=== PATIENT | male | born 1960 | race African-American/Black ===

== ENCOUNTER 2021-12-09 12:39 | Emergency (ER) | payer OTHER, SELFPAY ==
--- NOTE | 2021-12-09 12:46 | ED.SKABFB ---
HPI - Skin/Abscess/Foreign Bdy General Chief complaint: Skin/Abscess/Foreign Body Stated complaint: Abcess on arm Source: patient Mode of arrival: ambulatory Limitations: no limitations History of Present Illness HPI narrative: 61-year-old male presented for complaint of skin lesion to the left wrist for about 3 months. He states over the last 2 to 3 weeks he has noticed it is more itchy, he has scratched it and has noticed yellow and clear drainage. He has applied kyos-mmf-ltnnacl treatment such as tea tree oil and Neosporin without relief. He denies any other locations of lesions. He states this is the location where his watch is normally, but he has not been wearing a watch. Denies changes to lotion, soap, detergent etc. MD complaint: rash Related Data Home Medications Medication Instructions Recorded Confirmed albuterol sulfate 90 mcg/actuation 90 mcg inhalation DIRECTED 12/09/21 12/09/21 aerosol inhaler atorvastatin 20 mg tablet 20 mg DIRECTED 12/09/21 12/09/21 losartan 25 mg tablet 25 mg DIRECTED 12/09/21 12/09/21 sildenafil 50 mg tablet 50 mg DIRECTED 12/09/21 12/09/21 Allergies Allergy/AdvReac Type Severity Reaction Status Date / Time No Known Allergies Allergy Unverified 03/01/19 12:08 Review of Systems Review of Systems: CONSTITUTIONAL: Denies body aches, fever, chills, or sweats. CARDIOVASCULAR: Denies chest pain, palpitations, or edema. RESPIRATORY: Denies cough or dyspnea. GASTROINTESTINAL: Denies abdominal pain, nausea, vomiting, or diarrhea. SKIN: reports rash, itching MUSCULOSKELETAL: Denies back pain, joint pain, or myalgia. NEUROLOGIC: Denies headache, numbness, tingling, or weakness. PMFSH Comments At time of signature, I have reviewed and agree with nursing past medical, surgical, social and family history unless otherwise noted. Please see nursing chart for further information. There is no relevant family history pertinent to the presenting complaint Exam Narrative: GENERAL: Well-appearing, well-nourished, and in no acute distress. HEAD: Normocephalic, atraumatic. NECK: Supple. No lymphadenopathy CHEST: Clear to auscultation. No respiratory distress. HEART: Regular rate and rhythm. SKIN: Warm, dry. approx [id number] diameter flat scaly lesion to left wrist, mild surrounding erythema and yellow crusted drainage; no active drainage or fluctuance NEURO: Alert and oriented x3. PSYCH: Normal mood and affect Course Course Emergency Course: Patient is aware of diagnosis, understands and agrees to treatment plan. Anticipatory guidance given. Patient agrees to follow-up as directed and is aware of reasons to seek care at the emergency department. Portions of this record may have been created with voice recognition software Level of Care: Express Care Visit Vital Signs Vital signs: Reviewed MDM - Skin/Abscess/Foreign Bdy MDM Narrative Medical decision making narrative: Patient looks well, afebrile; appropriate for initial outpatient treatment; discussed the importance of follow-up, patient agrees. Rx mupirocin and steroid. Instructed patient follow up with pcp and dermatology since lesion has been present for 3 months, he is advised to go to nearest ER immediately for any worsening symptoms including but not limited to: fever, spreading rash, pain, sore throat, headache, dizziness, chest pain, trouble breathing, or any symptoms concerning to the patient. Differential Diagnosis Differential diagnosis: Likely abscess of skin or subcutaneous tissue, urticaria, herpes zoster, cellulitis, impetigo and contact dermatitis Discharge Plan Discharge Clinical Impression: Dermatitis Patient Disposition: Home, Self-Care Condition: Stable Instructions: Antibiotic Form, Impetigo (ED) Additional Instructions: Wash the area with gentle soap and water only. Use skin cream as prescribed Take the steroid as directed Avoid scratching when possible to prevent worsening of th
[2021-12-09 12:49] VITALS: BP 141/77; PULSE 66; RESP 16; TEMP 36.9; O2SAT 100
[2021-12-09 12:55] VITALS: BP 141/77; PULSE 66; RESP 16; TEMP 36.9; O2SAT 100
== END 2021-12-09 13:11 | disposition home or self-care (01) ==
PROVIDERS: Emergency Provider Nurse Practitioner Family; PCP Internal Medicine
DX: L30.9 Dermatitis, unspecified (principal); E78.00 Pure hypercholesterolemia, unspecified; I10 Essential (primary) hypertension; J45.909 Unspecified asthma, uncomplicated
CPT/HCPCS: 99213; G0463

== ENCOUNTER 2021-12-29 23:46 | Emergency (ER) | payer OTHER, SELFPAY ==
[2021-12-30 00:07] VITALS: BP 127/74; PULSE 64; RESP 16; TEMP 36.8; O2SAT 98
[2021-12-30 02:06] VITALS: BP 127/70; PULSE 65; RESP 18; O2SAT 100
--- NOTE | 2021-12-30 02:11 | ED.GENADULT ---
HPI - General Adult General Chief complaint: Unspecified <RAUL Schwartz Last Filed: 12/30/21 02:23> Stated complaint: painful and itching rectum/ possible hemorrhoid? <RAUL Schwartz Last Filed: 12/30/21 02:23> Time Seen by Provider: 12/30/21 01:48 <RAUL Schwartz Last Filed: 12/30/21 02:23> Source: patient <RAUL Schwartz Last Filed: 12/30/21 02:23> Mode of arrival: ambulatory <RAUL Schwartz Last Filed: 12/30/21 02:23> Limitations: no limitations <RAUL Schwartz Last Filed: 12/30/21 02:23> History of Present Illness HPI narrative: This is a 61-year-old male that presents to the emergency department for anal itching. Noted over the last week. He has used several [id number] treatments with little relief. Denies fever or rectal bleeding. <RAUL Schwartz Last Filed: 12/30/21 02:23> Related Data Home medications: Home Medications Medication Instructions Recorded Confirmed albuterol sulfate 90 mcg/actuation 90 mcg inhalation DIRECTED 12/09/21 12/09/21 aerosol inhaler atorvastatin 20 mg tablet 20 mg DIRECTED 12/09/21 12/09/21 losartan 25 mg tablet 25 mg DIRECTED 12/09/21 12/09/21 sildenafil 50 mg tablet 50 mg DIRECTED 12/09/21 12/09/21 <Rubi Díaz PA-C - Last Filed: 12/30/21 02:23> Allergies/adverse reactions: Allergies Allergy/AdvReac Type Severity Reaction Status Date / Time No Known Allergies Allergy Verified 12/30/21 00:07 <RAUL Schwartz Last Filed: 12/30/21 02:23> Review of Systems Review of Systems: CONSTITUTIONAL: Denies fever GASTROINTESTINAL: Denies abdominal pain, nausea, vomiting <RAUL Schwartz Last Filed: 12/30/21 02:23> All systems reviewed & are unremarkable except as noted in HPI and below <Rubi Díaz PA-C - Last Filed: 12/30/21 02:23> PMFSH Past Medical History Medical History: Medical History (Updated 12/30/21 @ 02:20 by Rubi Díaz PA-C) History of hyperlipidemia History of hypertension <Rubi Díaz PA-C - Last Filed: 12/30/21 02:23> Social History Social History: Social History (Updated 12/30/21 @ 02:13 by Rubi Díaz PA-C) Substance use: never <Rubi Díaz PA-C - Last Filed: 12/30/21 02:23> Exam Narrative: GENERAL: Well-appearing, well-nourished, and in no acute distress. HEAD: Normocephalic, atraumatic. EYES: EOMI. EXTREMITIES: Normal range of motion. No edema. SKIN: Warm, dry, no rash. NEURO: No focal deficits. Alert and oriented x3. PSYCH: Normal mood and affect RECTAL: No hemorrhoids or fissures are noted. The anal area appears red and irritated. No evidence for abscess <Rubi Díaz PA-C - Last Filed: 12/30/21 02:23> Course WO[employer] LAST [employer]KER/PA Physician Supervision For this patient encounter, I reviewed the WOOD LAST MAKER or PA documentation, treatment plan, and medical decision making <Robin Gamble MD - Last Filed: 12/30/21 19:12> Vital Signs Vital signs: Vital Signs Temperature 98.2 F 12/30/21 00:07 Pulse Rate 64 12/30/21 00:07 Respiratory Rate 16 12/30/21 00:07 Blood Pressure 127/74 12/30/21 00:07 Pulse Oximetry 98 12/30/21 00:07 Temperature 98.2 F 12/30/21 00:07 Pulse Rate 65 12/30/21 02:06 Respiratory Rate 18 12/30/21 02:06 Blood Pressure 127/70 12/30/21 02:06 Pulse Oximetry 100 12/30/21 02:06 <Rubi Díaz PA-C - Last Filed: 12/30/21 02:23> Vital Signs Temperature 98.2 F 12/30/21 00:07 Pulse Rate 64 12/30/21 00:07 Respiratory Rate 16 12/30/21 00:07 Blood Pressure 127/74 12/30/21 00:07 Pulse Oximetry 98 12/30/21 00:07 Temperature 98.2 F 12/30/21 00:07 Pulse Rate 65 12/30/21 02:06 Respiratory Rate 18 12/30/21 02:06 Blood Pressure 127/70 12/30/21 02:06 Pulse Oximetry 100 12/30/21 02:06 <Robin Gamble MD - Last Filed: 12/30/21 19:12> Medical Decision M
== END 2021-12-30 03:05 | disposition home or self-care (01) ==
PROVIDERS: Emergency Provider Emergency Medicine; PCP Internal Medicine
DX: L29.0 Pruritus ani (principal); E78.5 Hyperlipidemia, unspecified; I10 Essential (primary) hypertension
CPT/HCPCS: 99283

== ENCOUNTER 2022-01-25 13:27 | Emergency (ER) | payer OTHER, SELFPAY ==
--- NOTE | ~2022-01-25 | XR_ITS ---
EXAMINATION: XR chest 2V Exam Date/Time: 01/25/2022 15:15 CDT HISTORY: rt chest pain/short of breath non smoker Comparison: 11/26/2018 and 08/06/2008. RESULT: Lines, tubes, and devices: None. Lungs and pleura: New irregular, somewhat nodular opacities in the left midlung. Lungs otherwise oneyda ar. Cardiomediastinal silhouette: Stable. Other: No acute osseous or upper abdominal finding. IMPRESSION: Irregular opacities in the left midlung may reflect focal infectious/inflammatory change. Recommend n onemergent outpatient CT of the chest to exclude pulmonary nodules. Reviewed, dictated and finalized at location K. IMPRESSION: Irregular opacities in the left midlung may reflect focal infectious/inflammato ry change. Recommend nonemergent outpatient CT of the chest to exclude pulmonar y nodules.
[2022-01-25 14:28] VITALS: BP 139/69; PULSE 61; RESP 16; TEMP 36.5; O2SAT 100
--- NOTE | 2022-01-25 15:11 | ED.URI ---
HPI - URI/Sore Throat General Chief Complaint: Upper Respiratory Infection Stated Complaint: uri Time Seen by Provider: 01/25/22 15:11 Source: patient, RN notes reviewed and old records reviewed Mode of arrival: ambulatory Limitations: no limitations History of Present Illness HPI Narrative: 61 year old male who presents to [facility] with complaints of going to another urgent care on the with fever, chills, and dry cough and he was tested negative for COVID. He present today stating that this the 2nd week he hasn't felt well and now he has productive cough and right sided chest pain and also some body aches. He states that he has had pneumonia in the past and he is concerned that he may have pneumonia again. He states that he took Vicodin last night for his chest discomfort. MD elicited complaint: cough and other (right side chest pain) Pertinent past history: pneumonia Treatments prior to arrival: other (medrol dose pack and inhaler) Related Data Home Medications Medication Instructions Recorded Confirmed albuterol sulfate 90 mcg/actuation 90 mcg inhalation DIRECTED 12/09/21 01/25/22 aerosol inhaler atorvastatin 20 mg tablet 20 mg DIRECTED 12/09/21 01/25/22 losartan 25 mg tablet 25 mg DIRECTED 12/09/21 01/25/22 sildenafil 50 mg tablet 50 mg DIRECTED 12/09/21 01/25/22 Allergies Allergy/AdvReac Type Severity Reaction Status Date / Time No Known Allergies Allergy Verified 01/26/22 13:19 Review of Systems Review of Systems: CONSTITUTIONAL: Denies fever,positive for chills, no sweats. EYES: Denies visual changes, redness, or discharge. ENT: Denies , congestion, sore throat, or otalgia. CARDIOVASCULAR: reports right sided chest pain, palpitations, or edema. RESPIRATORY: Reports productive cough no dyspnea. GASTROINTESTINAL: Denies abdominal pain, nausea, vomiting, or diarrhea. GENITOURINARY: Denies dysuria or hematuria. SKIN: Denies rash or itching. MUSCULOSKELETAL: Denies back pain, joint pain,body aches NEUROLOGIC: Denies headache, numbness, or weakness. PSYCHIATRIC: Denies anxiety or depression. All systems reviewed & are unremarkable except as noted in HPI and below PMFSH Past Medical History Medical History (Updated 01/27/22 @ 20:19 by Rachel Green NP) History of hyperlipidemia History of hypertension Surgical History Surgical History (Updated 01/27/22 @ 20:14 by Rachel Green NP) H/O left knee surgery H/O repair of rotator cuff bilateral Social History Social History (Updated 01/27/22 @ 20:18 by Rachel Green NP) Smoking status: Never smoker Alcohol intake: unknown Substance use: never Gender identity (if verbalized by the patient): Male Comments At time of signature, agree with nursing past medical, surgical, social and family history. There is no relevant family history pertinent to the presenting complaint Exam Narrative: GENERAL: Well-appearing, well-nourished, and in no acute distress. HEAD: Normocephalic, atraumatic. EYES: PERRLA and EOMI. ENT: Nares clear, no rhinorrhea or epistaxis. Mucous membranes moist.TM's normal with good light reflex, throat pink with no lesions or tonsil swelling NECK: Supple. No lymphadenopathy CHEST: Clear to auscultation. No respiratory distress.[id number] on room air, no tachypnea, cough noted, able to speak in full sentences with no dyspnea noted HEART: Regular rate and rhythm. No murmur heard. Normal peripheral pulses. ABDOMEN: Soft, nontender, nondistended, normal active bowel sounds. EXTREMITIES: Normal range of motion. No edema. SKIN: Warm, dry, no rash. NEURO: No focal deficits. Alert and oriented x3. Course Course Level of Care: Express Care Visit Vital Signs Vital signs: Vital Signs Temperature 36.5 C 01/25/22 14:28 Pulse Rate 61 01/25/22 14:28 Respiratory Rate 16 01/25/22 14:28 Blood Pressure 139/69 01/25/22 14:28 Pulse Oximetry 100 01/25/22 14:28 Oxygen Delivery Room Air
== END 2022-01-25 16:17 | disposition home or self-care (01) ==
PROVIDERS: Emergency Provider Registered Nurse
DX: J06.9 Acute upper respiratory infection, unspecified (principal); E78.5 Hyperlipidemia, unspecified; I10 Essential (primary) hypertension
CPT/HCPCS: 71046; 99213; G0463

== ENCOUNTER 2022-01-26 12:44 | Emergency (ER) | payer OTHER, SELFPAY ==
[2022-01-26] VITALS (15 sets, daily range): BP systolic 130–145; BP diastolic 75–92; PULSE 58–88; RESP 14–16; TEMP 36.8; O2SAT 97–100
--- NOTE | ~2022-01-26 | CT_ITS ---
EXAMINATION: CTA chest PE protocol DATE: 01/26/2022 14:44 INDICATION: Chest pain and shortness of breath. TECHNIQUE: Computed tomography (CT) pulmonary angiogram of the chest was performed with 100 mL Omnipa que-350 intravenous contrast. Additional 3D reconstructions utilizing coronal maximum intensity proje ction (MIP) were performed. Automated exposure control and iterative reconstruction technique were em ployed. The dose-length product was 543.20 mGy-cm. COMPARISON: None FINDINGS: Excellent contrast opacification of the pulmonary arteries. There is mild streak artifact from dense contrast in the superior vena cava and right atrium. Mild scattered respiratory motion artifact. Pelv is to suggest 3 Limited evaluation with no pulmonary embolism. Small lung volumes, particularly on th e right where there is mild elevation the right hemidiaphragm. Dependent groundglass and linear and b andlike opacities in the bilateral lower lobes with corresponding bronchovascular crowding and volume loss most consistent with atelectasis. There is a cluster of several pulmonary nodules, the largest measuring 13 x 9 mm in the posterior lingula concerning for pneumonia. No pulmonary edema or pleural effusion. Heart size is normal. No pericardial effusion. Thoracic aorta is normal in caliber. No path ologically enlarged thoracic lymphadenopathy. Visualized upper abdomen is unremarkable. There are fabien dging osteophytes at multiple levels in the spine, consistent with diffuse idiopathic skeletal hypero stosis (DISH). IMPRESSION: 1. Cluster of nodular opacities in the posterior lingula corresponding to the opacity seen on the remy or radiographs which given the localized distribution are most likely infectious/inflammatory in etio logy but would recommend 3-6 month follow-up. 2. Mild atelectasis in the bilateral lower lobes. Reviewed, dictated and finalized at location A. IMPRESSION: 1. Cluster of nodular opacities in the posterior lingula corresponding to the o pacity seen on the prior radiographs which given the localized distribution are most likely infectious/inflammatory in etiology but would recommend 3-6 month follow-up. 2. Mild atelectasis in the bilateral lower lobes.
--- NOTE | ~2022-01-26 | XR_ITS ---
EXAMINATION: XR chest 2V DATE: 01/26/2022 13:23 INDICATION: Right-sided chest pain, fever, cough and shortness of breath TECHNIQUE: PA and lateral views of the chest were obtained. COMPARISON: Chest radiograph dated 01/25/2022 FINDINGS: Again seen are couple small nodular opacities in the left midlung zone. Remainder of the lungs are cl ear with no new airspace opacities, pulmonary edema, pleural effusion or pneumothorax. Calcified left hilar lymph nodes consistent with old granulomatous disease. The cardiomediastinal silhouette is nor mal. There are bridging osteophytes at multiple levels in the lower thoracic spine, consistent with d iffuse idiopathic skeletal hyperostosis (DISH). IMPRESSION: 1. No change in a couple small nodular opacity left midlung zone. Would agree with prior recommendati on for further evaluation with nonemergent chest CT. Reviewed, dictated and finalized at location A. IMPRESSION: 1. No change in a couple small nodular opacity left midlung zone. Would agree w ith prior recommendation for further evaluation with nonemergent chest CT.
--- NOTE | 2022-01-26 12:48 | ECG_ITS ---
Measurements Intervals [place] Rate: 58 P: 22 LA: 170 QRS: -28 QRSD: 116 T: -2 QT: 390 QTc: 383 Interpretive Statements SINUS BRADYCARDIA WITH SINUS ARRHYTHMIA INTRAVENTRICULAR CONDUCTION DELAY BORDERLINE T WAVE ABNORMALITY- INFERIOR LEADS BASELINE WANDER- V1-V6 BORDERLINE ECG Electronically Signed On 01-26-2022 14:41:09 CDT by Ross Bates D.O.
[2022-01-26 13:03] LABS: Basophils Percent Auto 0.5 % (0.2-1.2); Eosinophils Absolute Auto 0.3 K/mm3 (0-0.3); Eosinophils Percent Auto 4.1 % (0-4.4); Hematocrit 44.2 % (42.0-52.0); Hemoglobin 14.2 g/dL (14.0-18.0); Immature Granulocyte Absolute 0.02 K/mm3 (0.00-0.031); Immature Granulocyte Percent A 0.3 % (0-0.5); Lymphocytes Absolute Auto 1.72 K/mm3 (0.9-3.2); Lymphocytes Percent Auto 27.3 % (18.3-44.2); Mean Corpuscular HGB Conc 32.1 g/dl (32-36); Mean Corpuscular Hemoglobin 29.4 pg (26-34); Mean Corpuscular Volume 91.5 fl (80-100); Mean Platelet Volume 9.6 fl (7.4-10.4); Monocytes Absolute Auto 0.5 K/mm3 (0.1-0.6); Monocytes Percent Auto 8.2 % (2.6-8.5); Neutrophils Absolute Auto 3.8 K/mm3 (1.3-6.7); Neutrophils Percent Auto 59.6 % (45.5-73.1); Platelet Count Result 207 k/mm3 (150-375); Red Blood Count 4.83 M/mm3 (4.6-6.20); Red Cell Distribution Width 13.2 % (11.5-14.5); White Blood Count 6.3 K/mm3 (4.5-10.0)
[2022-01-26 13:12] LABS: INR 1.1; Prothrombin Time 13.4 Seconds (11.1-14.7)
[2022-01-26 13:13] LABS: Alanine Aminotransferase 46 U/L (6-50); Albumin Level 4.2 g/dL (3.5-5.1); Alkaline Phosphatase 94 U/L (38-126); Anion Gap 11 mmol/L (8-16); Aspartate Amino Transferase 40 U/L (17-59); Bilirubin,Total 0.5 mg/dL (0.2-1.3); Blood Urea Nitrogen 13 mg/dL (9-20); Calcium 9.2 mg/dL (8.4-10.2); Carbon Dioxide 27 mmol/L (22-30); Chloride 106 mmol/L (98-107); Estimated CRCL calculation 73 ml/min; Estimated Glomerular Filt Rate > 60; Glucose 129 mg/dL (65-110); Lipase 66 U/L (23-300); Potassium 3.9 mmol/L (3.4-5.0); Sodium 144 mmol/L (137-145)
[2022-01-26 13:14] LABS: Partial Thromboplastin Time 25.1 SECONDS (22.3-36.8)
[2022-01-26] MEDS: ASPIRIN 81 MG CHEWABLE TABLET 324 MG PO (13:19)
[2022-01-26 13:25] LABS: Troponin I < 0.012 ng/mL (0.000-0.034)
--- NOTE | 2022-01-26 14:09 | ED.GENADULT ---
HPI - General Adult General Chief complaint: Chest Pain Stated complaint: chest pain Time Seen by Provider: 01/26/22 13:11 History of Present Illness HPI narrative: Patient is a 61-year-old male who presents ER with left-sided chest pain. Associated with cough and pain with deep breath. Ongoing for last couple weeks. Originally treated for viral syndrome and negative for COVID. Patient is not having fevers or chills or sweats. He was seen at an urgent care today and had an abnormal chest x-ray that nonemergent follow-up CT scan was recommended. Urgent care opted to send him for further evaluation. Patient has no hypoxia. No lower extremity swelling or pain in his calves. No long distance travel. No history of previous clots. Related Data Home Medications Medication Instructions Recorded Confirmed albuterol sulfate 90 mcg/actuation 90 mcg inhalation DIRECTED 12/09/21 01/25/22 aerosol inhaler atorvastatin 20 mg tablet 20 mg DIRECTED 12/09/21 01/25/22 losartan 25 mg tablet 25 mg DIRECTED 12/09/21 01/25/22 sildenafil 50 mg tablet 50 mg DIRECTED 12/09/21 01/25/22 Allergies Allergy/AdvReac Type Severity Reaction Status Date / Time No Known Allergies Allergy Verified 01/26/22 13:19 Review of Systems Constitutional: Constitutional: Denies chills and Denies fever(s) Cardiovascular: Cardiovascular: Reports chest pain, Denies rapid heart rate and Denies radiating jaw, neck or arm pain Respiratory: Respiratory: Reports chest congestion, Reports cough and Denies wheezing Gastrointestinal: Gastrointestinal: Denies abdominal pain, Denies nausea and Denies vomiting Musculoskeletal: Musculoskeletal: Denies arthralgias and Denies joint swelling PMFSH Past Medical History Medical History (Updated 01/26/22 @ 15:52 by Roel Diamond MD) History of hyperlipidemia History of hypertension Surgical History Surgical History (Updated 01/25/22 @ 15:29 by Rachel Green NP) H/O left knee surgery Social History Social History (Updated 01/25/22 @ 15:30 by Rachel Green NP) Smoking status: Never smoker Substance use: never Gender identity (if verbalized by the patient): Male Exam Narrative: GENERAL: Well-appearing, well-nourished, and in no acute distress. HEAD: Normocephalic, atraumatic. EYES: PERRL and EOMI. CHEST: Clear to auscultation. No respiratory distress. HEART: Regular rate and rhythm. Normal peripheral pulses. ABDOMEN: Soft, nontender, nondistended. EXTREMITIES: Normal range of motion. No edema. SKIN: Warm, dry, no rash. NEURO: Alert and oriented x3. PSYCH: Normal mood and affect. Course Course Emergency Course: Patient resting comfortably. Informed of results. Recommend anti-inflammatories for pleuritic chest pain. Patient was given low-dose prednisone as well as Z-Jorge A which should be adequate in treating his pneumonia. Discussed he needs to follow-up with his PCP because he will require repeat imaging of his chest next 3 to 6 months to exclude malignancy. Vital Signs Vital signs: Vital Signs Temperature 98.2 F 01/26/22 12:54 Pulse Rate 66 01/26/22 12:54 Respiratory Rate 14 01/26/22 12:54 Blood Pressure 130/75 01/26/22 12:54 Pulse Oximetry 100 01/26/22 12:54 Oxygen Delivery Room Air 01/26/22 12:54 Temperature 98.2 F 01/26/22 12:54 Pulse Rate 61 01/26/22 15:02 Respiratory Rate 16 01/26/22 15:02 Blood Pressure 141/92 H 01/26/22 15:02 Pulse Oximetry 97 01/26/22 15:02 Oxygen Delivery Room Air 01/26/22 12:54 Medical Decision Making Vital Signs Vital Signs: Vital Signs Temperature 98.2 F 01/26/22 12:54 Pulse Rate 66 01/26/22 12:54 Respiratory Rate 14 01/26/22 12:54 Blood Pressure 130/75 01/26/22 12:54 Pulse Oximetry 100 01/26/22 12:54 Oxygen Delivery Room Air 01/26/22 12:54 Temperature 98.2 F 01/26/22 12:54 Pulse Rate 61 01/26/22 15:02 Respiratory Rate 16 01/26/22 15:02 Blo
[2022-01-26 16:15] LABS: Troponin I < 0.012 ng/mL (0.000-0.034)
== END 2022-01-26 16:53 | disposition home or self-care (01) ==
PROVIDERS: Emergency Medicine; Emergency Provider Emergency Medicine
DX: J18.9 Pneumonia, unspecified organism (principal); E78.5 Hyperlipidemia, unspecified; I10 Essential (primary) hypertension
CPT/HCPCS: 36415; 71046; 71275; 80053; 83690; 84484; 85025; 85610; 85730; 93005; 99284; A9270; Q9967

== ENCOUNTER 2022-08-30 15:13 | Emergency (ER) | payer OTHER, SELFPAY ==
[2022-08-30 15:30] VITALS: BP 127/82; PULSE 56; RESP 16; O2SAT 97
[2022-08-30 16:24] LABS: Basophils Absolute Auto 0.1 K/mm3 (0.0-0.1); Basophils Percent Auto 0.8 % (0.2-1.2); Eosinophils Absolute Auto 0.2 K/mm3 (0-0.3); Eosinophils Percent Auto 3.8 % (0-4.4); Hematocrit 46.6 % (42.0-52.0); Hemoglobin 15.7 g/dL (14.0-18.0); Immature Granulocyte Absolute 0.02 K/mm3 (0.00-0.031); Immature Granulocyte Percent A 0.3 % (0-0.5); Lymphocytes Absolute Auto 2.12 K/mm3 (0.9-3.2); Lymphocytes Percent Auto 35.2 % (18.3-44.2); Mean Corpuscular HGB Conc 33.7 g/dl (32-36); Mean Corpuscular Hemoglobin 30.4 pg (26-34); Mean Corpuscular Volume 90.1 fl (80-100); Mean Platelet Volume 10.9 fl (7.4-10.4); Monocytes Absolute Auto 0.6 K/mm3 (0.1-0.6); Monocytes Percent Auto 10.3 % (2.6-8.5); Neutrophils Percent Auto 49.6 % (45.5-73.1); Platelet Count Result 186 k/mm3 (150-375); Red Blood Count 5.17 M/mm3 (4.6-6.20); Red Cell Distribution Width 13.4 % (11.5-14.5)
[2022-08-30] MEDS: diazePAM INJ (*CRX) 10 MG/2 ML SYRINGE 5 MG IV PUSH (16:28)
[2022-08-30] MEDS: KETOROLAC 30 MG/ML VIAL (*BKC) IV PUSH (16:28)
[2022-08-30] MEDS: SODIUM CHLORIDE 0.9% IV 1,000 ML 999 ML IV CONT ×2 (16:32→19:50)
[2022-08-30 16:38] LABS: Alanine Aminotransferase 90 U/L (6-50); Albumin Level 4.7 g/dL (3.5-5.1); Alkaline Phosphatase 96 U/L (38-126); Anion Gap 5 mmol/L (8-16); Aspartate Amino Transferase 65 U/L (17-59); Bilirubin,Total 0.7 mg/dL (0.2-1.3); Blood Urea Nitrogen 18 mg/dL (9-20); Calcium 9.2 mg/dL (8.4-10.2); Carbon Dioxide 25 mmol/L (22-30); Chloride 106 mmol/L (98-107); Estimated CRCL calculation 63 ml/min; Estimated Glomerular Filt Rate > 60; Glucose 97 mg/dL (65-110); Lipase 104 U/L (23-300); Potassium 4.3 mmol/L (3.4-5.0); Sodium 136 mmol/L (137-145)
--- NOTE | 2022-08-30 18:16 | ED.GENADULT ---
HPI - General Adult General Chief complaint: Back Pain/Injury Stated complaint: back spasms Time Seen by Provider: 08/30/22 15:18 History of Present Illness HPI narrative: Patient is a 62-year-old male who presents ER with right-sided flank pain. Reports he has been having issues over the last week. He is scheduled follow-up with his PCP. Last week he had an outpatient CT scan of the abdomen pelvis noncontrast performed at [facility]. The results showed mesenteric stranding that was nonspecific. Patient reports if he eats he has abdominal cramping and some diarrhea. No fevers or chills or sweats. He has been having some spasms in his right back that bring him to the ground at times. No numbness or tingling to lower extremities. No fevers chills or sweats. No injection drug use. Patient was started on metronidazole and ciprofloxacin due to mesenteric adenitis. Related Data Home Medications Medication Instructions Recorded Confirmed albuterol sulfate 90 mcg/actuation 90 mcg inhalation DIRECTED 12/09/21 01/25/22 aerosol inhaler atorvastatin 20 mg tablet 20 mg DIRECTED 12/09/21 01/25/22 losartan 25 mg tablet 25 mg DIRECTED 12/09/21 01/25/22 sildenafil 50 mg tablet 50 mg DIRECTED 12/09/21 01/25/22 Allergies Allergy/AdvReac Type Severity Reaction Status Date / Time No Known Allergies Allergy Verified 01/26/22 13:19 [facility] Past Medical History Medical History (Updated 08/30/22 @ 19:07 by Roel Diamond MD) History of hyperlipidemia History of hypertension Surgical History Surgical History (Updated 01/27/22 @ 20:14 by Rachel Green NP) H/O left knee surgery H/O repair of rotator cuff bilateral Social History Social History (Updated 01/27/22 @ 20:18 by Rachel Green NP) Smoking status: Never smoker Alcohol intake: unknown Substance use: never Living arrangements: with family Gender identity (if verbalized by the patient): Male Exam Narrative: GENERAL: Well-appearing, well-nourished, and in no acute distress. HEAD: Normocephalic, atraumatic. EYES: PERRL and EOMI. ENT: Mucous membranes moist. CHEST: Clear to auscultation. No respiratory distress. HEART: Regular rate and rhythm. Normal peripheral pulses. ABDOMEN: Soft, mild generalized abdominal discomfort without guarding, nondistended. Back: No midline tenderness to T/L-spine. There is muscle spasm that makes patient Rafita over the right paraspinal musculature at the level of T12. EXTREMITIES: Normal range of motion. No edema. SKIN: Warm, dry, no rash. NEURO: Alert and oriented x3. PSYCH: Normal mood and affect. Course Course Emergency Course: Mild improvement with Toradol and Valium. White count normal as is H&H and platelet count. Mild transaminase elevation which is nonspecific and likely related to the mesenteric inflammation. Recommend follow-up with his PCP. Will place on muscle relaxers for home. Patient's urine is low in volume and dark in color. He appears quite dry and will receive a second liter of fluid. Vital Signs Vital signs: Vital Signs Pulse Rate 56 L 08/30/22 15:30 Respiratory Rate 16 08/30/22 15:30 Blood Pressure 127/82 08/30/22 15:30 Pulse Oximetry 97 08/30/22 15:30 Oxygen Delivery Room Air 08/30/22 15:30 Pulse Rate 56 L 08/30/22 15:30 Respiratory Rate 16 08/30/22 15:30 Blood Pressure 127/82 08/30/22 15:30 Pulse Oximetry 97 08/30/22 15:30 Oxygen Delivery Room Air 08/30/22 15:30 Medical Decision Making Vital Signs Vital Signs: Vital Signs Pulse Rate 56 L 08/30/22 15:30 Respiratory Rate 16 08/30/22 15:30 Blood Pressure 127/82 08/30/22 15:30 Pulse Oximetry 97 08/30/22 15:30 Oxygen Delivery Room Air 08/30/22 15:30 Pulse Rate 56 L 08/30/22 15:30 Respiratory Rate 16 08/30/22 15:30 Blood Pressure 127/82 08/30/22 15:30 Pulse Oximetry 97 08/30/22 15:30 Oxygen Delivery Room Air 08/30/22 15:30
== END 2022-08-30 20:00 | disposition home or self-care (01) ==
PROVIDERS: Emergency Provider Emergency Medicine; PCP Internal Medicine
DX: M62.830 Muscle spasm of back (principal); I10 Essential (primary) hypertension; E78.5 Hyperlipidemia, unspecified; Z79.51 Long term (current) use of inhaled steroids
CPT/HCPCS: 36415; 80053; 83690; 85025; 96361; 96374; 96375; 99284; J1885; J3360; J7030

== ENCOUNTER 2023-11-29 15:32 | Emergency (ER) | payer OTHER, SELFPAY ==
[2023-11-29 15:34] VITALS: BP 147/77; PULSE 65; RESP 20; TEMP 37.3; O2SAT 95
--- NOTE | 2023-11-29 15:45 | ED.BACK ---
HPI - Back Pain/Injury General Chief Complaint: Back Pain/Injury Stated Complaint: back pain Time Seen by Provider: 11/29/23 15:38 History of Present Illness HPI Narrative: Pt says he was lifting heavy things at work a couple of weeks ago and has been having intermittent episodes of his low back spasming on him. Pt denies numbness or weakness in legs and denies problems with bladder or bowels. Related Data Home Medications Medication Instructions Recorded Confirmed albuterol sulfate 90 mcg/actuation 90 mcg inhalation DIRECTED 12/09/21 01/25/22 aerosol inhaler atorvastatin 20 mg tablet 20 mg DIRECTED 12/09/21 01/25/22 losartan 25 mg tablet 25 mg DIRECTED 12/09/21 01/25/22 sildenafil 50 mg tablet 50 mg DIRECTED 12/09/21 01/25/22 Allergies Allergy/AdvReac Type Severity Reaction Status Date / Time No Known Allergies Allergy Verified 01/26/22 13:19 Review of Systems Review of Systems: All systems reviewed & are unremarkable except as noted in HPI and below PMFSH Past Medical History Medical History (Updated 11/29/23 @ 16:24 by Regi Frausto III, DO) History of hyperlipidemia History of hypertension Surgical History Surgical History (Updated 01/27/22 @ 20:14 by Rachel Green NP) H/O left knee surgery H/O repair of rotator cuff bilateral Social History Social History (Updated 01/27/22 @ 20:18 by Rachel Green NP) Smoking status: Never smoker Alcohol intake: unknown Substance use: never Living arrangements: with family Gender identity (if verbalized by the patient): Male Exam Const: General: healthy appearing and no acute distress Nutritional Appearance: well nourished Orientation/consciousness: patient oriented x3 Limitations: no limitations Eyes: Pupils: Equal, round and reactive pupils present EOM: EOMs intact bilaterally Resp: Effort & Inspection: normal respiratory effort Auscultation: clear to auscultation bilaterally Cardio: Rate: regular rate Rhythm: regular rhythm GI: GI Palp: Yes Soft to palpation and No Tenderness to palpation present (GI) Auscultation: normal bowel sounds Back/Spine/Pelvis: Other: no midline pain some mild tendernes upper to midlumbar paraspinous muscles on right Skin: General skin exam: normal color Rashes: no rashes Wounds: no wounds Neuro: General: patient oriented x3, moves all extremities and no focal motor deficits Speech: normal speech Extrem: General: normal to inspection and no clubbing, cyanosis or edema Psych: Mental Status: mental status grossly normal Affect: normal affect Attitude: cooperative Course Vital Signs Vital signs: Vital Signs Temperature 99.1 F 11/29/23 15:34 Pulse Rate 65 11/29/23 15:34 Respiratory Rate 20 11/29/23 15:34 Blood Pressure 147/77 H 11/29/23 15:34 Pulse Oximetry 95 11/29/23 15:34 Oxygen Delivery Room Air 11/29/23 15:34 Temperature 99.1 F 11/29/23 15:34 Pulse Rate 65 11/29/23 15:34 Respiratory Rate 20 11/29/23 15:34 Blood Pressure 147/77 H 11/29/23 15:34 Pulse Oximetry 95 11/29/23 15:34 Oxygen Delivery Room Air 11/29/23 15:34 MDM - Back Pain/Injury MDM Narrative Medical decision making narrative: pt has pretty classic musculoskeltal symptoms. toradol injection here helped pain. Will send home on naprosyn and flexeril Differential Diagnosis Differential diagnosis: Likely lumbar radiculopathy, strain of lumbar region and thoracic back pain Discharge Plan Discharge Clinical Impression: Strain of lumbar region Patient Disposition: Home, Self-Care Condition: Improved Instructions: Antibiotic Form, Back Pain (ED) Prescriptions: New naproxen [Naprosyn] 500 mg tablet 500 mg PO BID Qty: 20 0RF cyclobenzaprine 10 mg tablet 10 mg PO TID Qty: 14 0RF No Action azithromycin [Zithromax] 250 mg tablet See Rx Instructions .ROUTE .COMPLEX Qty: 6 0RF Rx Instructions: For 250 mg dose
[2023-11-29] MEDS: KETOROLAC 30 MG/ML VIAL (*BKC) IM (16:04)
[2023-11-29 17:29] VITALS: BP 148/72; PULSE 67; RESP 18; TEMP 37; O2SAT 97
== END 2023-11-29 17:33 | disposition home or self-care (01) ==
PROVIDERS: Emergency Provider Emergency Medicine; PCP Internal Medicine
DX: S39.012A Strain of muscle, fascia and tendon of lower back, initial encounter (principal); I10 Essential (primary) hypertension; E78.5 Hyperlipidemia, unspecified; X50.0XXA Overexertion from strenuous movement or load, initial encounter
CPT/HCPCS: 96372; 99283; J1885

== ENCOUNTER 2024-11-24 16:43 | Emergency (ER) | payer OTHER, SELFPAY ==
--- NOTE | ~2024-11-24 | CT_ITS ---
CT brain wo con Ordering provider: Rubi Díaz History: 64 years Male with . headache, paresthesias . Comparison: None. Technique: CT of the head without contrast. Radiation reduction technique utilized.The dose-length pr oduct was 681 mGy-cm. FINDINGS: BRAIN PARENCHYMA AND CSF SPACES: No midline shift, mass effect or hemorrhage. The brain parenchyma a nd CSF spaces are otherwise normal. VISUALIZED PARANASAL SINUSES: Well aerated. MASTOIDS: Well aerated. BONES: The bones appear intact. SOFT TISSUES: Visualized nasopharynx is normal. Superficial soft tissues are normal. IMPRESSION: No acute intracranial findings. Reviewed, dictated and finalized at location A.
--- NOTE | ~2024-11-24 | XR_ITS ---
XR chest 2V Ordering provider: Gregory Lynn MD History: 64 years Male with . sob . Comparison: None. FINDINGS: MEDIASTINUM: The cardiac silhouette is not enlarged. LUNGS: No infiltrates, effusions or pneumothorax. OTHER: No free air under the diaphragm. Degenerative changes of the spine. IMPRESSION: No acute cardiopulmonary pathology. Reviewed, dictated and finalized at location A.
--- OUTSIDE RECORDS SUMMARY | 2024-11-24 16:46 | XMS_ITS | Data Portability ---
Author Organization [facility] [employer] Address [address] [facility] [address] [place] [address] Assessment Encounter Date Assessment Date Assessment LastModified by Organization Details LastModified Time 04/17/2023 04/17/2023 Patient presente d for follow up. Studies ordered as below. Discussed plan with patient/caregiver , who expressed understanding. Follow up as noted below. [email or web address] Not available 04/17/2023 08:44:11 08/18/2023 08/18/2023 Recommends healthy nutrition, including a diet rich in fruits and vegetables, minimizing simple carbohydrates, salt, and saturated fats. Encouraged regular cardiovascular exercise such as walking at least 30 minutes daily, 5 times per week. Not available 08/18/2023 09:39:40 11/17/2023 11/17/2023 Patient presente d for follow up. Studies ordered as below. Discussed plan with patient/caregiver , who expressed understanding. Follow up as noted below. Not available 11/17/2023 10:12:01 02/19/2024 02/19/2024 Patient presente d for follow up. Studies ordered as below. Discussed plan with patient/caregiver , who expressed understanding. Follow up as noted below. Not available 02/19/2024 10:56:15 06/08/2024 06/08/2024 Patient presente d for follow up. Studies ordered as below. Discussed plan with patient/caregiver , who expressed understanding. Follow up as noted below. Not available 06/08/2024 11:13:33 Plan of Treatment Reminders Order Date Submit Date Provider Last Modified By Organization Details Last Modified Time Details Appointments ESTABLISH ED PATIENT 15 2024 09:15A Anamaria Merchant MD Not available Not available Not available Lab PSA, serum or plasma 2023 024 [facility], [address] [place] [address], [id number], 06/15/2024 09:47:42 lipid panel, serum 2023 024 [facility], [address] [place], [address], 06/15/2024 09:47:42 glucose tolerance test, 4 specimens 2023 024 [facility], [address] [place] [address], [id number], 06/15/2024 09:47:42 CBC w/ auto diff 2023 024 [facility], [address] [place] [address], [id number], 06/15/2024 09:47:41 CMP, serum or plasma 2023 024 [facility], [address] [place] [address], [place], [address], 06/15/2024 09:47:41 HbA1c (hemoglob in A1c), blood 2023 024 [facility], [address] [place] [address], [address], 06/15/2024 09:47:42 microalbu min/creat inine, mass ratio, urine 2023 024 [facility], [address] [place], [address], 06/15/2024 09:47:42 glucose tolerance test, 4 specimens 2023 024 [facility], [address] [place] [address], [address], 02/26/2024 08:11:51 CBC w/ auto diff 2023 024 [facility], [address] [facility], [place], [address], 02/26/2024 08:11:51 CMP, serum or plasma 2023 024 [facility], [address] [facility], [place], [address], 02/26/2024 08:11:52 TSH + free T4, serum 2023 024 [facility], [address] [facility], [place], [address], 02/26/2024 08:11:52 T3, free, serum or plasma 2023 024 [facility], [address] [facility], [place], [address], 02/26/2024 08:11:52 CBC w/ auto diff 2023 024 [facility], [address] [facility], [place], [address], 02/26/2024 08:11:50 CMP, serum or plasma 2023 024 [facility], [address] [facility], [place], [address], 02/26/2024 08:11:51 HbA1c (hemoglob in A1c), blood 2023 024 [facility], [address] [place], [address], 02/26/2024 08:11:51 BMP, serum or plasma 2023 024 [facility], [address] [place], [address], 02/26/2024 08:11:51 CBC w/ auto diff 2023 024 MICHELLE Not available 11/19/2023 19:15:40 CMP, serum or plasma 2023 024 MICHELLE Not available 11/19/2023 19:15:41 PSA, serum or plasma 2023 024 delbert [facility], [address] , [place], [address], 08/25/2023 08:22:23 lipid panel, serum 2023 024 [email or web address] Not available 08/25/2023 08:22:23 CBC w/ auto diff 2023 024 [email or web address] Not available 08/25/2023 08:22:23 CMP, serum or plasma 2023 024 MICHELLE Not available 08/20/2023 12:32:38 egg white ige, serum - -- please include dairy, nuts and seafood. 2022 023 MICHELLE Not available 04/21/2023 14:51:02 CBC w/ auto diff 2022 023 MICHELLE Not available 04/21/2023 14:51:00 CMP, serum or plasma 2022 023 MICHELLE Not available 04/21/2023 14:51:01 Referral cardiolog ist referral 2023 024 daly Neal MD, [address] [facility] [address] [address], [place], [address], 06/08/2024 11:26:56 cardiolog ist referral 2023 024 delbert Nael MD, [address] [facility] [address], [address], [place], [address], 05/19/2024 08:42:25 gastroent erologist referral 2022 023 MICHELLE Morales MD, [address], [place], [address], 04/24/2023 00:52:08 Procedures None recorded. Surgeries None recorded. Imaging electroca rdiogram 2023 024 [facility], [address], [place], [address], 02/19/2024 14:09:01 CT, abdomen + pelvis, w/ contrast 2023 024 [facility] [address], [address], [place], [address], 03/04/2024 08:22:36 US, axilla 2022 023 [facility], [address] [facility], [place], [address], 04/24/2023 08:27:51 Medication Orders triamcino lone acetonide 0.1 % topical ointment 2023 024 [facility] #[id number], [address] [facility], [place], [place], [id number], 06/08/2024 11:20:11 rosuvasta tin 10 mg tablet 2023 024 [facility] #[id number], [address] [facility], [place], [place], [id number], 06/08/2024 11:20:12 triamcino lone acetonide 0.1 % topical ointment 2023 024 [facility] #[id number], [address] [facility], [place], [place], [id number], 02/19/2024 11:03:31 rosuvasta tin 10 mg tablet [address] [facility] #[id number], [address] , [place], [place], [id number], 02/19/2024 11:04:37 rosuvasta tin 10 mg tablet 2023 024 [facility] #31287, [address] [facility] [facility], [place], [place], [id number], 11/17/2023 11:00:35 triamcino lone acetonide 0.1 % topical ointment 2023 024 [facility] #72536, [address] , [place], [place], [id number], 11/17/2023 11:00:34 atorvasta tin 20 mg tablet 2023 024 [facility] [employer] #[id number], [address] [facility] [facility], [place], [place], [id number], 08/18/2023 09:37:55 triamcino lone acetonide 0.1 % topical ointment 2023 024 [facility] #52025, [address] [facility] [facility], [place], [place], [id number], 08/18/2023 09:52:16 metronida zole 500 mg tablet [address] #[id number], [address] [facility] [facility], [place], [place], [id number], 08/18/2023 09:39:59 Augmentin 875 mg-125 mg tablet [address] [facility] #79118, [address] [facility], [place], [place], [id number], 08/18/2023 09:39:50 Patient TargetsNo targets recorded. Patient Instructions Encounter Date Encounter Id Patient Instructions Last Modified By Organization Details Last Modified Time 08/18/2023 [id number] advised to lose weight Not available 08/18/2023 09:37:46 Discussed and explained advance directives such as standard forms to the . Face to face discussion lasted for a duration of ___ minutes. 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 Ex cessive sweating Referring Physician: Luis Carlos Merchant, Internal Medicine, Encounter Date: 02/19/2024 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 Printing 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 Referral for Ex cessive sweating Referring Physician: Luis Carlos Merchant, Internal Medicine, Encounter Date: 06/08/2024 Results Created Date Observation Date Name Description Value Unit Range Abnormal Flag Note LastModifiedBy Organization Detail LastModifiedTime 03/30/2003/30/2023 POC CREAT ININE POC creatinine 1.1 mg/dL 0.70-1 .20 Not Available [facility] (Lab) [facility], [place], [address], 03/30/2023 11:14:56 04/17/2004/17/2023 COMPL ETE CBC W/AUT O DIFF WBC white blood cell count 4.4 thous and/u L 3.5-10 .0 Not Available [facility] (Main Location) [address] ,, [place], [address], 04/21/2023 14:51:00 04/17/2004/17/2023 COMPL ETE CBC W/AUT O DIFF WBC red blood cell count 5.0 gayle on/uL 3.5-5. 5 Not Available [facility] (Main Location) [address] ,, [place], [address], 04/21/2023 14:51:00 04/17/20 23 04/17/2023 COMPL ETE CBC W/AUT O DIFF WBC hemoglobin 14.8 g/dL 11.5-1 6.5 Not Available [facility] (Main Location) [address] ,, [place], [address], 04/21/2023 14:51:00 04/17/20 23 04/17/2023 COMPL ETE CBC W/AUT O DIFF WBC hematocrit 46 % 35-55 Not Available [facility] (Main Location) [address] ,, [place], [address], 04/21/2023 14:51:00 04/17/20 23 04/17/2023 COMPL ETE CBC W/AUT O DIFF WBC MCH 30 pg 25-35 Not Available [facility] (Main Location) [address] ,, [place], [address], 04/21/2023 14:51:00 04/17/20 23 04/17/2023 COMPL ETE CBC W/AUT O DIFF WBC MCHC 32 g/dL 31-38 Not Available [facility] (Main Location) [address] ,, [place], [address], 04/21/2023 14:51:00 04/17/20 23 04/17/2023 COMPL ETE CBC W/AUT O DIFF WBC MCV 93 fL 75-100 Not Available [facility] (Main Location) [address] ,, [place], [address], 04/21/2023 14:51:00 04/17/20 23 04/17/2023 COMPL ETE CBC W/AUT O DIFF WBC RDW-CV 14 % 11-15 Not Available [facility] (Main Location) [address] ,, [place], [address], 04/21/2023 14:51:00 04/17/20 23 04/17/2023 COMPL ETE CBC W/AUT O DIFF WBC neutrophils% 46.8 % Not Available [facility] (Main Location) [facility] ,, [place], [address], 04/21/2023 14:51:00 04/17/20 23 04/17/2023 COMPL ETE CBC W/AUT O DIFF WBC lymphocytes% 36.9 % Not Available [facility] (Main Location) [facility] [address] ,, [place], [address], 04/21/2023 14:51:00 04/17/20 23 04/17/2023 COMPL ETE CBC W/AUT O DIFF WBC monocytes% 11.8 % Not Available [facility] (Main Location) [facility] [address] ,, [place], [address], 04/21/2023 14:51:00 04/17/20 23 04/17/2023 COMPL ETE CBC W/AUT O DIFF WBC eosinophil % 3.6 % 0.0-7. 0 Not Available [facility] (Main Location) [facility] [address] ,, [place], [address], 04/21/2023 14:51:00 04/17/20 23 04/17/2023 COMPL ETE CBC W/AUT O DIFF WBC basophil % 0.7 % 0.0-3. 0 Not Available [facility] (Main Location) [facility] [address] ,, [place], [address], 04/21/2023 14:51:00 04/17/20 23 04/17/2023 COMPL ETE CBC W/AUT O DIFF WBC absolute neutrophils 2.1 cells /uL 1.5-7. 8 Not Available [facility] (Main Location) [facility] [address] ,, [place], [address], 04/21/2023 14:51:00 04/17/20 23 04/17/2023 COMPL ETE CBC W/AUT O DIFF WBC absolute lymphocytes 1.62 cells /uL 0.85-3 .90 Not Available [facility] (Main Location) [facility] ,, [place], [address], 04/21/2023 14:51:00 04/17/20 23 04/17/2023 COMPL ETE CBC W/AUT O DIFF WBC absolute monocytes 0.5 cells /uL 0.2-1. 0 Not Available [facility] (Main Location) [facility] ,, [place], [address], 04/21/2023 14:51:00 04/17/2004/17/2023 COMPL ETE CBC W/AUT O DIFF WBC absolute eosinophils 0.2 cells /uL 0.0-0. 5 Not Available [facility] (Main Location) [facility] ,, [place], [address], 04/21/2023 14:51:00 04/17/20 23 04/17/2023 COMPL ETE CBC W/AUT O DIFF WBC absolute basophils 0.0 cells /uL 0.0-0. 2 Not Available [facility] (Main Location) [address] ,, [place], [address], 04/21/2023 14:51:00 04/17/20 23 04/17/2023 COMPL ETE CBC W/AUT O DIFF WBC platelet count 177 thous and/u L 100-40 0 Not Available [facility] (Main Location) [address] ,, [place], [address], 04/21/2023 14:51:00 04/17/20 23 04/17/2023 CMP (COMP REHEN SIVE METAB OLIC PANEL ) glucose 93 mg/dL 74-99 Not Available [facility] (Main Location) [facility] ,, [place], [address], 04/21/2023 14:51:01 04/17/20 23 04/17/2023 CMP (COMP REHEN SIVE METAB OLIC PANEL ) urea nitrogen, blood (BUN) 16 mg/dL 8-23 Not Available [facility] (Main Location) [address] [place] [address]. [address] ,, [place], [address], 04/21/2023 14:51:01 04/17/20 23 04/17/2023 CMP (COMP REHEN SIVE METAB OLIC PANEL ) total bilirubin 0.6 mg/dL 0.0-1. 2 Not Available [facility] (Main Location) [address] [place] [address]. [address] ,, [place], [address], 04/21/2023 14:51:01 04/17/20 23 04/17/2023 CMP (COMP REHEN SIVE METAB OLIC PANEL ) total protein 6.8 g/dL 6.6-8. 7 Not Available [facility] (Main Location) [address] [place] [address]. [address] ,, [place], [address], 04/21/2023 14:51:01 04/17/20 23 04/17/2023 CMP (COMP REHEN SIVE METAB OLIC PANEL ) alanine aminotransfe rase (ALT) 36 U/L 0-41 Not Available [facility] (Main Location) [address] [place] [address]. [address] ,, [place], [address], 04/21/2023 14:51:01 04/17/20 23 04/17/2023 CMP (COMP REHEN SIVE METAB OLIC PANEL ) alkaline phosphatase 91 U/L 40-130 Not Available [facility] (Main Location) [address] [place] [address]. [address] ,, [place], [address], 04/21/2023 14:51:01 04/17/20 23 04/17/2023 CMP (COMP REHEN SIVE METAB OLIC PANEL ) aspartate aminotransfe rase (AST) 21 U/L 0-40 Not Available [facility] (Main Location) [address] [place] [address]. [address] ,, [place], [address], 04/21/2023 14:51:01 04/17/20 23 04/17/2023 CMP (COMP REHEN SIVE METAB OLIC PANEL ) calcium 9.9 mg/dL 8.6-10 .2 Not Available [facility] (Main Location) [address] [place], [place] [address] ,, [place], [address], 04/21/2023 14:51:01 04/17/20 23 04/17/2023 CMP (COMP REHEN SIVE METAB OLIC PANEL ) albumin 4.4 g/dL 3.5-5. 2 Not Available [facility] (Main Location) [address] [place], [place] [address] ,, [place], [address], 04/21/2023 14:51:01 04/17/20 23 04/17/2023 CMP (COMP REHEN SIVE METAB OLIC PANEL ) CO2 28 mmol/ L 23-31 Not Available [facility] (Main Location) [address] [place], [place] [address] ,, [place], [address], 04/21/2023 14:51:01 04/17/20 23 04/17/2023 CMP (COMP REHEN SIVE METAB OLIC PANEL ) creatinine, serum 1.1 mg/dL 0.7-1. 2 Not Available [facility] (Main Location) [address] [place], [place] [address] ,, [place], [address], 04/21/2023 14:51:01 04/17/20 23 04/17/2023 CMP (COMP REHEN SIVE METAB OLIC PANEL ) sodium, serum 142 mmol/ L 136-14 5 Not Available [facility] (Main Location) [address] [place], [place] [address] ,, [place], [address], 04/21/2023 14:51:01 04/17/20 23 04/17/2023 CMP (COMP REHEN SIVE METAB OLIC PANEL ) potassium, serum 4.1 mmol/ L 3.5-5. 1 Not Available [facility] (Main Location) [address] [place], [place] [address] ,, [place], [address], 04/21/2023 14:51:01 04/17/20 23 04/17/2023 CMP (COMP REHEN SIVE METAB OLIC PANEL ) chloride, serum 106 mmol/ L 98-107 Not Available [facility] (Main Location) [facility] ,, [place], [address], 04/21/2023 14:51:01 04/17/20 23 04/17/2023 CMP (COMP REHEN SIVE METAB OLIC PANEL ) eGFR 72 >59 Persi stent reduc tion for 3 month s or more in an eGFR <60 mL/mi n/1.7 3 m2 defin es CKD. Patie nts with eGFR value s>/=6 0 mL/mi n/1.7 3 m2 may also have CKD if evide nce of persi stent protu niuri a is prese nt. Addit ional infor carlotta pineda may be found at [email or web address] org. Not Available [facility] (Main Location) [address] [place] [address]. [address] ,, [place], [address], 04/21/2023 14:51:01 04/17/20 23 04/17/2023 FOOD ALLER GY PROFI LE egg white, IgE: <0.10 kU/L <0.35 Not Available [facility] (Main Location) [address] [place] [address]. [address] ,, [place], [address], 04/21/2023 14:51:02 04/17/20 23 04/17/2023 FOOD ALLER GY PROFI LE egg white, class: 0 - Normal , no specif ic IgE identi fied Not Available [facility] (Main Location) [address] [place] [address]. [address] ,, [place], [address], 04/21/2023 14:51:02 04/17/20 23 04/17/2023 FOOD ALLER GY PROFI LE milk, IgE; <0.10 kU/L <0.35 Not Available [facility] (Main Location) [address] [place], [place] [address] ,, [place], [address], 04/21/2023 14:51:02 04/17/20 23 04/17/2023 FOOD ALLER GY PROFI LE milk, class: 0 - Normal , no specif ic IgE identi fied Not Available [facility] (Main Location) [facility] [address] ,, [place], [address], 04/21/2023 14:51:02 04/17/20 23 04/17/2023 FOOD ALLER GY PROFI LE wheat, IgE: <0.10 kU/L <0.35 Not Available [facility] (Main Location) [address] [place], [place] [address] ,, [place], [address], 04/21/2023 14:51:02 04/17/20 23 04/17/2023 FOOD ALLER GY PROFI LE wheat, class: 0 - Normal , no specif ic IgE identi fied Not Available [facility] (Main Location) [address] [place], [place] [address] ,, [place], [address], 04/21/2023 14:51:02 04/17/20 23 04/17/2023 FOOD ALLER GY PROFI LE jonah nut/filbert, IgE: <0.10 kU/L <0.35 Not Available [facility] (Main Location) [address] [place], [place] [address] ,, [place], [address], 04/21/2023 14:51:02 04/17/20 23 04/17/2023 FOOD ALLER GY PROFI LE jonah nut/filbert, class: 0 - Normal , no specif ic IgE identi fied Not Available [facility] (Main Location) [facility] [address] ,, [place], [address], 04/21/2023 14:51:02 04/17/20 23 04/17/2023 FOOD ALLER GY PROFI LE cashew nut, IgE: <0.10 kU/L <0.35 Not Available [facility] (Main Location) [address] [place], [place] [address] ,, [place], [address], 04/21/2023 14:51:02 04/17/20 23 04/17/2023 FOOD ALLER GY PROFI LE cashew nut, class: 0 - Normal , no specif ic IgE identi fied Not Available [facility] (Main Location) [address] ,, [place], [address], 04/21/2023 14:51:02 04/17/20 23 04/17/2023 FOOD ALLER GY PROFI LE almond, IgE: <0.10 kU/L <0.35 Not Available [facility] (Main Location) [facility] [address] ,, [place], [address], 04/21/2023 14:51:02 04/17/20 23 04/17/2023 FOOD ALLER GY PROFI LE almond, class: 0 - Normal , no specif ic IgE identi fied Not Available [facility] (Main Location) [address] [place], [place] [address] ,, [place], [address], 04/21/2023 14:51:02 04/17/20 23 04/17/2023 FOOD ALLER GY PROFI LE peanut, IgE: <0.10 kU/L <0.35 Not Available [facility] (Main Location) [address] [place], [place] [address] ,, [place], [address], 04/21/2023 14:51:02 04/17/20 23 04/17/2023 FOOD ALLER GY PROFI LE peanut, class: 0 - Normal , no specif ic IgE identi fied Not Available [facility] (Main Location) [address] [place], [place] [address] ,, [place], [address], 04/21/2023 14:51:02 04/17/20 23 04/17/2023 FOOD ALLER GY PROFI LE shrimp, IgE: 0.12 kU/L <0.35 Not Available [facility] (Main Location) [address] [place], [place] [address] ,, [place], [address], 04/21/2023 14:51:02 04/17/20 23 04/17/2023 FOOD ALLER GY PROFI LE shrimp, class: 0/1 Equivo genet, indete rminat e signif icance Not Available [facility] (Main Location) [address] [place], [place] [address] ,, [place], [address], 04/21/2023 14:51:02 04/17/20 23 04/17/2023 FOOD ALLER GY PROFI LE salmon, IgE: <0.10 kU/L <0.35 Not Available [facility] (Main Location) [address] [place], [place] [address] ,, [place], [address], 04/21/2023 14:51:02 04/17/20 23 04/17/2023 FOOD ALLER GY PROFI LE class-salmon 0 - Normal , no specif ic IgE identi fied Not Available [facility] (Main Location) [address] [place] [address]. [address] ,, [place], [address], 04/21/2023 14:51:02 04/17/20 23 04/17/2023 FOOD ALLER GY PROFI LE tuna, IgE: <0.10 kU/L <0.35 Not Available [facility] (Main Location) [address] [place] [address]. [address] ,, [place], [address], 04/21/2023 14:51:02 04/17/20 23 04/17/2023 FOOD ALLER GY PROFI LE class-tuna 0 - Normal , no specif ic IgE identi fied Not Available [facility] (Main Location) [address] [place] [address]. [address] ,, [place], [address], 04/21/2023 14:51:02 04/17/20 23 04/17/2023 FOOD ALLER GY PROFI LE soybean, IgE: <0.10 kU/L <0.35 Not Available [facility] (Main Location) [address] [place] [address]. [address] ,, [place], [address], 04/21/2023 14:51:02 04/17/20 23 04/17/2023 FOOD ALLER GY PROFI LE soybean, class: 0 - Normal , no specif ic IgE identi fied Not Available [facility] (Main Location) [address] [place] [address]. [address] ,, [place], [address], 04/21/2023 14:51:02 04/17/20 23 04/17/2023 FOOD ALLER GY PROFI LE sesame seed, IgE: <0.10 kU/L <0.35 Not Available [facility] (Main Location) [address] [place], [place] [address] ,, [place], [address], 04/21/2023 14:51:02 04/17/20 23 04/17/2023 FOOD ALLER GY PROFI LE sesame seed, class: 0 - Normal , no specif ic IgE identi fied Not Available [facility] (Main Location) [address] [place], [place] [address] ,, [place], [address], 04/21/2023 14:51:02 04/17/20 23 04/17/2023 FOOD ALLER GY PROFI LE codfish, IgE: <0.10 kU/L <0.35 Not Available [facility] (Main Location) [address] [place], [place] [address] ,, [place], [address], 04/21/2023 14:51:02 04/17/20 23 04/17/2023 FOOD ALLER GY PROFI LE class-codfis h 0 - Normal , no specif ic IgE identi fied Not Available [facility] (Main Location) [address] [place], [place] [address] ,, [place], [address], 04/21/2023 14:51:02 04/17/20 23 04/17/2023 FOOD ALLER GY PROFI LE scallop, IgE: <0.10 kU/L <0.35 Not Available [facility] (Main Location) [address] [place], [place] [address] . [address] ,, [place], [address], 04/21/2023 14:51:02 04/17/20 23 04/17/2023 FOOD ALLER GY PROFI LE scallop, class: 0 - Normal , no specif ic IgE identi fied Not Available [facility] (Main Location) [address] [place], [place] [address] ,, [place], [address], 04/21/2023 14:51:02 04/17/20 23 04/17/2023 FOOD ALLER GY PROFI LE walnut, IgE: <0.10 kU/L <0.35 Not Available [facility] (Main Location) [address] ,, [place], [address], 04/21/2023 14:51:02 04/17/20 23 04/17/2023 FOOD ALLER GY PROFI LE walnut, class: 0 - Normal , no specif ic IgE identi fied Not Available [facility] (Main Location) [address] ,, [place], [address], 04/21/2023 14:51:02 04/17/20 23 04/17/2023 FOOD ALLER GY PROFI LE total, IgE: 50 IU/mL 0-158 Ameri can [facility] Labor atori es [address] [place] [facility] [place] [address] Labor atory Direc tor: Leny fletcher M.D. CLIA# [id number] Not Available [facility] (Main Location) [address] ,, [place], [address], 04/21/2023 14:51:02 08/18/19 24 08/18/2023 CBC WITH AUTO- DIFFE RENTI AL WBC 4.8 10*3/ uL 3.4-10 .8 Not Available [facility] [address], [place], [address], 08/20/2023 12:32:37 08/18/19 24 08/18/2023 CBC WITH AUTO- DIFFE RENTI AL RBC 5.15 10*6/ uL 4.20-5 .80 Not Available [facility] [address] [facility] [address], [place], [address], 08/20/2023 12:32:37 08/18/19 24 08/18/2023 CBC WITH AUTO- DIFFE RENTI AL HGB 15.4 g/dL 12.6-1 7.7 Not Available [facility] [address] [facility] [address], [place], [address], 08/20/2023 12:32:37 08/18/19 24 08/18/2023 CBC WITH AUTO- DIFFE RENTI AL HCT 47.0 % 37.5-5 1.0 Not Available [facility] [address] [facility] [facility] [address], [place], [address], 08/20/2023 12:32:37 08/18/19 24 08/18/2023 CBC WITH AUTO- DIFFE RENTI AL MCV 91 fL 79-97 Not Available [facility] [address], [place], [address], 08/20/2023 12:32:37 08/18/19 24 08/18/2023 CBC WITH AUTO- DIFFE RENTI AL MCH 29.9 pg 26.6-3 3.0 Not Available [facility] [address] [facility] [address], [place], [address], 08/20/2023 12:32:37 08/18/19 24 08/18/2023 CBC WITH AUTO- DIFFE RENTI AL MCHC 32.8 g/dL 31.5-3 5.7 Not Available [facility] [address], [place], [address], 08/20/2023 12:32:37 08/18/19 24 08/18/2023 CBC WITH AUTO- DIFFE RENTI AL RDW 13.6 % 11.5-1 4.5 Not Available [facility] [address], [place], [address], 08/20/2023 12:32:37 08/18/19 24 08/18/2023 CBC WITH AUTO- DIFFE RENTI AL platelets 173 10*3/ uL 150-40 0 Not Available [facility] [address], [place], [address], 08/20/2023 12:32:37 08/18/19 24 08/18/2023 CBC WITH AUTO- DIFFE RENTI AL MPV 11 fL 9-13 Not Available [facility] [address] [facility] [address], [place], [address], 08/20/2023 12:32:37 08/18/19 24 08/18/2023 CBC WITH AUTO- DIFFE RENTI AL neutrophils 47.1 % 40.0-7 4.0 Not Available [facility] [address] [facility] [address], [place], [address], 08/20/2023 12:32:37 08/18/19 24 08/18/2023 CBC WITH AUTO- DIFFE RENTI AL absolute neutrophils 2.26 10*3/ uL 1.40-7 .00 Not Available [facility] [address] [facility] [address], [place], [address], 08/20/2023 12:32:37 08/18/19 24 08/18/2023 CBC WITH AUTO- DIFFE RENTI AL lymphocytes 35.8 % 14.0-4 6.0 Not Available [facility] [address] [facility] [address], [place], [address], 08/20/2023 12:32:37 08/18/19 24 08/18/2023 CBC WITH AUTO- DIFFE RENTI AL absolute lymphocytes 1.72 10*3/ uL 0.70-3 .10 Not Available [facility] [address] [facility] [address], [place], [address], 08/20/2023 12:32:37 08/18/19 24 08/18/2023 CBC WITH AUTO- DIFFE RENTI AL monocytes 12.3 % 4.0-12 .0 high Not Available [facility] [address] [facility] [address], [place], [address], 08/20/2023 12:32:37 08/18/19 24 08/18/2023 CBC WITH AUTO- DIFFE RENTI AL absolute monocytes 0.59 10*3/ uL 0.10-0 .90 Not Available [facility] [address] [facility] [address], [place], [address], 08/20/2023 12:32:37 08/18/19 24 08/18/2023 CBC WITH AUTO- DIFFE RENTI AL eosinophils 3.8 % 0.0-5. 0 Not Available [facility] [address] [facility] [address], [place], [address], 08/20/2023 12:32:37 08/18/19 24 08/18/2023 CBC WITH AUTO- DIFFE RENTI AL absolute eosinophils 0.18 10*3/ uL 0.00-0 .40 Not Available [facility] [address] [facility] [address], [place], [address], 08/20/2023 12:32:37 08/18/19 24 08/18/2023 CBC WITH AUTO- DIFFE RENTI AL basophils 0.8 % 0.0-3. 0 Not Available [facility] [address] [facility] [address], [place], [address], 08/20/2023 12:32:37 08/18/19 24 08/18/2023 CBC WITH AUTO- DIFFE RENTI AL absolute basophils 0.04 10*3/ uL 0.00-0 .20 Not Available [facility] [address] [facility] [address], [place], [address], 08/20/2023 12:32:37 08/18/19 24 08/18/2023 CBC WITH AUTO- DIFFE RENTI AL imm. gran. 0.2 % 0.0-2. 0 Not Available [facility] [address] [place] [address] [address], [place], [address], 08/20/2023 12:32:37 08/18/19 24 08/18/2023 CBC WITH AUTO- DIFFE RENTI AL abs. imm. gran. 0.01 10*3/ uL 0.00-0 .10 Not Available [facility] [address] [facility] [address], [place], [address], 08/20/2023 12:32:37 08/18/19 24 08/18/2023 COMPR EHENS LISA METAB OLIC PANEL sodium 144 mmol/ L 134-14 4 Not Available [facility] [address] [facility] [address], [place], [address], 08/20/2023 12:32:37 08/18/19 24 08/18/2023 COMPR EHENS LISA METAB OLIC PANEL potassium 4.3 mmol/ L 3.5-5. 2 Not Available [facility] [address] [facility] [address], [place], [address], 08/20/2023 12:32:37 08/18/19 24 08/18/2023 COMPR EHENS LISA METAB OLIC PANEL chloride 107 mmol/ L 97-108 Not Available [facility] [address] [facility] [address], [place], [address], 08/20/2023 12:32:37 08/18/19 24 08/18/2023 COMPR EHENS LISA METAB OLIC PANEL carbon dioxide (co2) 27.0 mmol/ L 18.0-2 9.0 Not Available [facility] [address] [facility] [address], [place], [address], 08/20/2023 12:32:37 08/18/19 24 08/18/2023 COMPR EHENS LISA METAB OLIC PANEL glucose 98 mg/dL 65-99 Jessika l Fasti ng: < 100 mg/dL Impai red Fasti n - 125 mg/dL Diagn ostic of Diabe jory: => 126 mg/dL Ameri can Diabe jory Assoc iatio n, 2008 Not Available [facility] [address] [facility] [address], [place], [address], 08/20/2023 12:32:37 08/18/19 24 08/18/2023 COMPR EHENS LISA METAB OLIC PANEL urea nitrogen (BUN) 13 mg/dL 8-23 Not Available [facility] [address], [place], [address], 08/20/2023 12:32:37 08/18/19 24 08/18/2023 COMPR EHENS LISA METAB OLIC PANEL creatinine 1.12 mg/dL 0.76-1 .27 Not Available [facility] [address] [facility] [address], [place], [address], 08/20/2023 12:32:37 08/18/19 24 08/18/2023 COMPR EHENS LISA METAB OLIC PANEL eGFR for nonafrican AM 66 mL/mi nute/ 1.73_ m2 >59 Not Available [facility] [address] [facility] [address], [place], [address], 08/20/2023 12:32:37 08/18/19 24 08/18/2023 COMPR EHENS LISA METAB OLIC PANEL eGFR for AM 80 mL/mi nute/ 1.73_ m2 >59 MDRD Study Equat ion: The calcu lated GFR is NOT appli cable for pedia tric (< 18 years old) and > 70 year old patie nts and patie nts that are NOT of stead y state . Not Available [facility] [address] [facility] [address], [place], [address], 08/20/2023 12:32:37 08/18/19 24 08/18/2023 COMPR EHENS LISA METAB OLIC PANEL calcium 9.5 mg/dL 8.6-10 .2 Not Available [facility] [address] [facility] [address], [place], [address], 08/20/2023 12:32:37 08/18/19 24 08/18/2023 COMPR EHENS LISA METAB OLIC PANEL protein, total 6.8 gm/dL 6.4-8. 3 Not Available [facility] [address] [facility] [address], [place], [address], 08/20/2023 12:32:37 08/18/19 24 08/18/2023 COMPR EHENS LISA METAB OLIC PANEL albumin 4.5 gm/dL 3.5-5. 2 Not Available [facility] [address] [facility] [address], [place], [address], 08/20/2023 12:32:37 08/18/19 24 08/18/2023 COMPR EHENS LISA METAB OLIC PANEL bilirubin, total 0.50 mg/dL 0.00-1 .20 Not Available [facility] [address] [facility] [address], [place], [address], 08/20/2023 12:32:37 08/18/19 24 08/18/2023 COMPR EHENS LISA METAB OLIC PANEL alkaline phosphatase (ALP) 88 U/L 39-117 Not Available [facility] [address] [facility] [address], [place], [address], 08/20/2023 12:32:37 08/18/19 24 08/18/2023 COMPR EHENS LISA METAB OLIC PANEL aspartate aminotransfe rase (AST) 22 U/L 0-40 Not Available [facility] [address] [facility] [address], [place], [address], 08/20/2023 12:32:37 08/18/19 24 08/18/2023 COMPR EHENS LISA METAB OLIC PANEL alanine aminotransfe rase (ALT) 44 U/L 0-41 high Not Available [facility] [address] [facility] [address], [place], [address], 08/20/2023 12:32:37 08/18/19 24 08/18/2023 COMPR EHENS LISA METAB OLIC PANEL A/G ratio (calculated) 2.0 ratio 1.0-2. 7 Not Available [facility] [address] [facility] [address], [place], [address], 08/20/2023 12:32:37 08/18/19 24 08/18/2023 COMPR EHENS LISA METAB OLIC PANEL globulin (calculated) 2.3 gm/dL 1.5-3. 8 Not Available [facility] [address] [facility] [address], [place], [address], 08/20/2023 12:32:37 08/18/19 24 08/18/2023 COMPR EHENS LISA METAB OLIC PANEL BUN/creatini ne ratio (calculated) 11.6 ratio 8.0-20 .0 Not Available [facility] [address] [facility] [address], [place], [address], 08/20/2023 12:32:37 08/18/19 24 08/18/2023 COMPR EHENS LISA METAB OLIC PANEL serum hemolysis index NORMAL index normal Not Available [facility] [address] [facility] [address], [place], [address], 08/20/2023 12:32:37 08/18/19 24 08/18/2023 LIPID PANEL W/ CALC. LDL cholesterol, total 170 mg/dL 100-19 9 Not Available [facility] [address] [facility] [address], [place], [address], 08/20/2023 12:32:38 08/18/19 24 08/18/2023 LIPID PANEL W/ CALC. LDL HDL cholesterol 37 mg/dL =>40 Not Available [facility] [address] [facility] [address], [place], [address], 08/20/2023 12:32:38 08/18/19 24 08/18/2023 LIPID PANEL W/ CALC. LDL LDL cholesterol (calculated) 104 mg/dL 0-99 high Not Available [facility] [address] [facility] [address], [place], [address], 08/20/2023 12:32:38 08/18/19 24 08/18/2023 LIPID PANEL W/ CALC. LDL triglyceride s 145 mg/dL 50-149 Not Available [facility] [address] [facility] [address], [place], [address], 08/20/2023 12:32:38 08/18/19 24 08/18/2023 LIPID PANEL W/ CALC. LDL chol/HDL ratio (calculated) 4.59 ratio 0.00-5 .00 Not Available [facility] [address] [facility] [address], [place], [address], 08/20/2023 12:32:38 08/18/19 24 08/18/2023 LIPID PANEL W/ CALC. LDL VLDL cholesterol (calculated) 29 mg/dL 5-40 Not Available [facility] [address] [facility] [address], [place], [address], 08/20/2023 12:32:38 08/18/19 24 08/18/2023 PROST ATE-S PECIF IC ANTIG EN (PSA) , TOTAL (SCRE ENING ) prostate-spe cific antigen, total 2.1 NG/mL 0.0-4. 0 ECLIA METHO DOLOG Y. RESUL TS FROM THIS METHO D IS NOT SARAH TIBLE WITH DIFFE RENT ASSAY METHO D AND CANNO T BE USED INTER POWELL EABLY . Not Available [facility] [address] [facility] [address], [place], [address], 08/20/2023 12:32:39 11/17/19 24 11/17/2023 CBC WITH AUTO- DIFFE RENTI AL WBC 4.8 10*3/ uL 3.4-10 .8 Not Available [facility] [address] [facility] [address], [place], [address], 11/19/2023 19:15:40 11/17/19 24 11/17/2023 CBC WITH AUTO- DIFFE RENTI AL RBC 5.31 10*6/ uL 4.20-5 .80 Not Available [facility] [address] [facility] [address], [place], [address], 11/19/2023 19:15:40 11/17/19 24 11/17/2023 CBC WITH AUTO- DIFFE RENTI AL HGB 15.8 g/dL 12.6-1 7.7 Not Available [facility] [address] [facility] [address], [place], [address], 11/19/2023 19:15:40 11/17/19 24 11/17/2023 CBC WITH AUTO- DIFFE RENTI AL HCT 50.0 % 37.5-5 1.0 Consi stent with previ ous resul t Not Available [facility] [address], [place], [address], 11/19/2023 19:15:40 11/17/19 24 11/17/2023 CBC WITH AUTO- DIFFE RENTI AL MCV 94 fL 79-97 Not Available [facility] [address], [place], [address], 11/19/2023 19:15:40 11/17/19 24 11/17/2023 CBC WITH AUTO- DIFFE RENTI AL MCH 29.8 pg 26.6-3 3.0 Not Available [facility] [address], [place], [address], 11/19/2023 19:15:40 11/17/19 24 11/17/2023 CBC WITH AUTO- DIFFE RENTI AL MCHC 31.6 g/dL 31.5-3 5.7 Not Available [facility] [address], [place], [address], 11/19/2023 19:15:40 11/17/19 24 11/17/2023 CBC WITH AUTO- DIFFE RENTI AL RDW 14.3 % 11.5-1 4.5 Not Available [facility] [address], [place], [address], 11/19/2023 19:15:40 11/17/19 24 11/17/2023 CBC WITH AUTO- DIFFE RENTI AL platelets 179 10*3/ uL 150-40 0 Not Available [facility] [address] [facility] [address], [place], [address], 11/19/2023 19:15:40 11/17/19 24 11/17/2023 CBC WITH AUTO- DIFFE RENTI AL MPV 11 fL 9-13 Not Available [facility] [address] [place] [address] [address], [place], [address], 11/19/2023 19:15:40 11/17/19 24 11/17/2023 CBC WITH AUTO- DIFFE RENTI AL neutrophils 51.8 % 40.0-7 4.0 Not Available [facility] [address] [facility] [address], [place], [address], 11/19/2023 19:15:40 11/17/19 24 11/17/2023 CBC WITH AUTO- DIFFE RENTI AL absolute neutrophils 2.49 10*3/ uL 1.40-7 .00 Not Available [facility] [address] [place] [address] [address], [place], [address], 11/19/2023 19:15:40 11/17/19 24 11/17/2023 CBC WITH AUTO- DIFFE RENTI AL lymphocytes 32.2 % 14.0-4 6.0 Not Available [facility] [address] [facility] [address], [place], [address], 11/19/2023 19:15:40 11/17/19 24 11/17/2023 CBC WITH AUTO- DIFFE RENTI AL absolute lymphocytes 1.55 10*3/ uL 0.70-3 .10 Not Available [address], [place], [address], 11/19/2023 19:15:40 11/17/19 24 11/17/2023 CBC WITH AUTO- DIFFE RENTI AL monocytes 10.6 % 4.0-12 .0 Not Available [place] [address] [facility] [address], [place], [address], 11/19/2023 19:15:40 11/17/19 24 11/17/2023 CBC WITH AUTO- DIFFE RENTI AL absolute monocytes 0.51 10*3/ uL 0.10-0 .90 Not Available [facility] [address] [facility] [address], [place], [address], 11/19/2023 19:15:40 11/17/19 24 11/17/2023 CBC WITH AUTO- DIFFE RENTI AL eosinophils 4.2 % 0.0-5. 0 Not Available [facility] [address] [facility] [address], [place], [address], 11/19/2023 19:15:40 11/17/19 24 11/17/2023 CBC WITH AUTO- DIFFE RENTI AL absolute eosinophils 0.20 10*3/ uL 0.00-0 .40 Not Available [facility] [address] [facility] [address], [place], [address], 11/19/2023 19:15:40 11/17/19 24 11/17/2023 CBC WITH AUTO- DIFFE RENTI AL basophils 1.0 % 0.0-3. 0 Not Available [facility] [address] [facility] [address], [place], [address], 11/19/2023 19:15:40 11/17/19 24 11/17/2023 CBC WITH AUTO- DIFFE RENTI AL absolute basophils 0.05 10*3/ uL 0.00-0 .20 Not Available [facility] [address] [place] [address] [address], [place], [address], 11/19/2023 19:15:40 11/17/19 24 11/17/2023 CBC WITH AUTO- DIFFE RENTI AL imm. gran. 0.2 % 0.0-2. 0 Not Available [facility] [address] [facility] [address], [place], [address], 11/19/2023 19:15:40 11/17/19 24 11/17/2023 CBC WITH AUTO- DIFFE RENTI AL abs. imm. gran. 0.01 10*3/ uL 0.00-0 .10 Not Available [facility] [address] [facility] [address], [place], [address], 11/19/2023 19:15:40 11/17/19 24 11/17/2023 COMPR EHENS LISA METAB OLIC PANEL sodium 144 mmol/ L 134-14 4 Not Available [facility] [address] [facility] [address], [place], [address], 11/19/2023 19:15:41 11/17/19 24 11/17/2023 COMPR EHENS LISA METAB OLIC PANEL potassium 4.4 mmol/ L 3.5-5. 2 Not Available [facility] [address] [facility] [address], [place], [address], 11/19/2023 19:15:41 11/17/19 24 11/17/2023 COMPR EHENS LISA METAB OLIC PANEL chloride 108 mmol/ L 97-108 Not Available [facility] [address] [facility] [address], [place], [address], 11/19/2023 19:15:41 11/17/19 24 11/17/2023 COMPR EHENS LISA METAB OLIC PANEL carbon dioxide (co2) 27.0 mmol/ L 18.0-2 9.0 Not Available [facility] [address] [facility] [address], [place], [address], 11/19/2023 19:15:41 11/17/19 24 11/17/2023 COMPR EHENS LISA METAB OLIC PANEL glucose 116 mg/dL 65-99 high Jessika l Fasti ng: < 100 mg/dL Impai red Fasti n - 125 mg/dL Diagn ostic of Diabe jory: => 126 mg/dL Ameri can Diabe jory Assoc iatio n, 2007 Not Available [facility] [address] [facility] [address], [place], [address], 11/19/2023 19:15:41 11/17/19 24 11/17/2023 COMPR EHENS LISA METAB OLIC PANEL urea nitrogen (BUN) 17 mg/dL 8-23 Not Available [facility] [address] [facility] [address], [place], [address], 11/19/2023 19:15:41 11/17/19 24 11/17/2023 COMPR EHENS LISA METAB OLIC PANEL creatinine 1.32 mg/dL 0.76-1 .27 high Not Available [facility] [address] [facility] [address], [place], [address], 11/19/2023 19:15:41 11/17/19 24 11/17/2023 COMPR EHENS LISA METAB OLIC PANEL eGFR for nonafrican AM 55 mL/mi nute/ 1.73_ m2 >59 low Not Available [facility] [address] [facility] [address], [place], [address], 11/19/2023 19:15:41 11/17/19 24 11/17/2023 COMPR EHENS LISA METAB OLIC PANEL eGFR for AM 66 mL/mi nute/ 1.73_ m2 >59 MDRD Study Equat ion: The calcu lated GFR is NOT appli cable for pedia tric (< 18 years old) and > 70 year old patie nts and patie nts that are NOT of stead y state . Not Available [facility] [address] [facility] [address], [place], [address], 11/19/2023 19:15:41 11/17/19 24 11/17/2023 COMPR EHENS LISA METAB OLIC PANEL calcium 9.6 mg/dL 8.6-10 .2 Not Available [facility] [address] [facility] [address], [place], [address], 11/19/2023 19:15:41 11/17/19 24 11/17/2023 COMPR EHENS LISA METAB OLIC PANEL protein, total 7.9 gm/dL 6.4-8. 3 Not Available [facility] [address] [facility] [address], [place], [address], 11/19/2023 19:15:41 11/17/19 24 11/17/2023 COMPR EHENS LISA METAB OLIC PANEL albumin 4.5 gm/dL 3.5-5. 2 Not Available [facility] [address] [facility] [address], [place], [address], 11/19/2023 19:15:41 11/17/19 24 11/17/2023 COMPR EHENS LISA METAB OLIC PANEL bilirubin, total 0.50 mg/dL 0.00-1 .20 Not Available [facility] [address] [facility] [address], [place], [address], 11/19/2023 19:15:41 11/17/19 24 11/17/2023 COMPR EHENS LISA METAB OLIC PANEL alkaline phosphatase (ALP) 104 U/L 39-117 Not Available [facility] [address] [facility] [address], [place], [address], 11/19/2023 19:15:41 11/17/19 24 11/17/2023 COMPR EHENS LISA METAB OLIC PANEL aspartate aminotransfe rase (AST) 19 U/L 0-40 Not Available [facility] [address] [facility] [address], [place], [address], 11/19/2023 19:15:41 11/17/19 24 11/17/2023 COMPR EHENS LISA METAB OLIC PANEL alanine aminotransfe rase (ALT) 36 U/L 0-41 Not Available [facility] [address] [facility] [address], [place], [address], 11/19/2023 19:15:41 11/17/19 24 11/17/2023 COMPR EHENS LISA METAB OLIC PANEL A/G ratio (calculated) 1.3 ratio 1.0-2. 7 Not Available [facility] [address] [facility] [address], [place], [address], 11/19/2023 19:15:41 11/17/19 24 11/17/2023 COMPR EHENS LISA METAB OLIC PANEL globulin (calculated) 3.4 gm/dL 1.5-3. 8 Not Available [facility] [address] [facility] [address], [place], [address], 11/19/2023 19:15:41 11/17/19 24 11/17/2023 COMPR EHENS LISA METAB OLIC PANEL BUN/creatini ne ratio (calculated) 12.9 ratio 8.0-20 .0 Not Available [facility] [address] [facility] [address], [place], [address], 11/19/2023 19:15:41 11/17/19 24 11/17/2023 COMPR EHENS LISA METAB OLIC PANEL serum hemolysis index NORMAL index normal Not Available [facility] [address] [facility] [address], [place], [address], 11/19/2023 19:15:41 11/17/19 24 11/17/2023 MILEA GE UNDER 20 [I] [id number] EMPTY Not Available [facility] [address] [facility] [address], [place], [address], 11/19/2023 19:15:41 06/14/20 24 06/14/2024 cathie metry testi ng* Spirometry Not Available [facility] [facility], [facility] [address], [place], [address], 06/08/2024 11:05:17 08/19/19 25 08/19/2024 HEMOG LOBIN A1C hemoglobin A1C 6.2 % 4.8-5. 6 high JESSIKA L RANGE BASED ON AJIT COL 2 (DCCT /NGSP ): Non-D iabet ic: < 5.7% Pre-D iabet es: 5.7 - 6.4% Diabe jory: => 6.5% GLYCE KELSEY CONTR OL: < 7.0% Not Available [facility] [address] [facility] [address], [place], [address], 08/20/2024 20:49:10 08/19/19 25 08/19/2024 HEMOG LOBIN A1C estimated average glucose 131 Not Available [facility] [address], [place], [address], 08/20/2024 20:49:10 08/19/19 25 08/19/2024 CBC WITH AUTO- DIFFE RENTI AL WBC 5.1 10*3/ uL 3.4-10 .8 Not Available [facility] [address] [facility] [address], [place], [address], 08/20/2024 20:49:11 08/19/19 25 08/19/2024 CBC WITH AUTO- DIFFE RENTI AL RBC 5.04 10*6/ uL 4.20-5 .80 Not Available [facility] [address] [facility] [address], [place], [address], 08/20/2024 20:49:11 08/19/19 25 08/19/2024 CBC WITH AUTO- DIFFE RENTI AL HGB 15.1 g/dL 12.6-1 7.7 Not Available [facility] [address], [place], [address], 08/20/2024 20:49:11 08/19/19 25 08/19/2024 CBC WITH AUTO- DIFFE RENTI AL HCT 44.7 % 37.5-5 1.0 Not Available [facility] [address] [facility] [address], [place], [address], 08/20/2024 20:49:11 08/19/19 25 08/19/2024 CBC WITH AUTO- DIFFE RENTI AL MCV 89 fL 79-97 Not Available [facility] [address] [facility] [address], [place], [address], 08/20/2024 20:49:11 08/19/19 25 08/19/2024 CBC WITH AUTO- DIFFE RENTI AL MCH 30.0 pg 26.6-3 3.0 Not Available [facility] [address], [place], [address], 08/20/2024 20:49:11 08/19/19 25 08/19/2024 CBC WITH AUTO- DIFFE RENTI AL MCHC 33.8 g/dL 31.5-3 5.7 Not Available [facility] [address], [place], [address], 08/20/2024 20:49:11 08/19/19 25 08/19/2024 CBC WITH AUTO- DIFFE RENTI AL RDW 13.6 % 11.5-1 4.5 Not Available [facility] [address], [place], [address], 08/20/2024 20:49:11 08/19/19 25 08/19/2024 CBC WITH AUTO- DIFFE RENTI AL platelets 164 10*3/ uL 150-40 0 Not Available [facility] [address], [place], [address], 08/20/2024 20:49:11 08/19/19 25 08/19/2024 CBC WITH AUTO- DIFFE RENTI AL MPV 11 fL 9-13 Not Available [facility] [address], [place], [address], 08/20/2024 20:49:11 08/19/19 25 08/19/2024 CBC WITH AUTO- DIFFE RENTI AL neutrophils 47.2 % 40.0-7 4.0 Not Available [facility] [address] [facility] [address], [place], [address], 08/20/2024 20:49:11 08/19/19 25 08/19/2024 CBC WITH AUTO- DIFFE RENTI AL absolute neutrophils 2.41 10*3/ uL 1.40-7 .00 Not Available [facility] [address] [facility] [address], [place], [address], 08/20/2024 20:49:11 08/19/19 25 08/19/2024 CBC WITH AUTO- DIFFE RENTI AL lymphocytes 35.3 % 14.0-4 6.0 Not Available [facility] [address] [facility] [address], [place], [address], 08/20/2024 20:49:11 08/19/19 25 08/19/2024 CBC WITH AUTO- DIFFE RENTI AL absolute lymphocytes 1.80 10*3/ uL 0.70-3 .10 Not Available [facility] [address] [facility] [address], [place], [address], 08/20/2024 20:49:11 08/19/19 25 08/19/2024 CBC WITH AUTO- DIFFE RENTI AL monocytes 12.2 % 4.0-12 .0 high Not Available [facility] [address] [facility] [address], [place], [address], 08/20/2024 20:49:11 08/19/19 25 08/19/2024 CBC WITH AUTO- DIFFE RENTI AL absolute monocytes 0.62 10*3/ uL 0.10-0 .90 Not Available [facility] [address] [facility] [address], [place], [address], 08/20/2024 20:49:11 08/19/19 25 08/19/2024 CBC WITH AUTO- DIFFE RENTI AL eosinophils 4.1 % 0.0-5. 0 Not Available [facility] [address] [facility] [address], [place], [address], 08/20/2024 20:49:11 08/19/19 25 08/19/2024 CBC WITH AUTO- DIFFE RENTI AL absolute eosinophils 0.21 10*3/ uL 0.00-0 .40 Not Available [facility] [address] [facility] [address], [place], [address], 08/20/2024 20:49:11 08/19/19 25 08/19/2024 CBC WITH AUTO- DIFFE RENTI AL basophils 1.0 % 0.0-3. 0 Not Available [facility] [address] [facility] [address], [place], [address], 08/20/2024 20:49:11 08/19/19 25 08/19/2024 CBC WITH AUTO- DIFFE RENTI AL absolute basophils 0.05 10*3/ uL 0.00-0 .20 Not Available [facility] [address] [facility] [address], [place], [address], 08/20/2024 20:49:11 08/19/19 25 08/19/2024 CBC WITH AUTO- DIFFE RENTI AL imm. gran. 0.2 % 0.0-2. 0 Not Available [facility] [address] [facility] [address], [place], [address], 08/20/2024 20:49:11 08/19/19 25 08/19/2024 CBC WITH AUTO- DIFFE RENTI AL abs. imm. gran. 0.01 10*3/ uL 0.00-0 .10 Not Available [facility] [address] [facility] [address], [place], [address], 08/20/2024 20:49:11 08/19/19 25 08/19/2024 COMPR EHENS LISA METAB OLIC PANEL sodium 142 mmol/ L 134-14 4 Not Available [facility] [address] [facility] [address], [place], [address], 08/20/2024 20:49:11 08/19/19 25 08/19/2024 COMPR EHENS LISA METAB OLIC PANEL potassium 4.1 mmol/ L 3.5-5. 2 Not Available [facility] [address] [facility] [address], [place], [address], 08/20/2024 20:49:11 08/19/19 25 08/19/2024 COMPR EHENS LISA METAB OLIC PANEL chloride 106 mmol/ L 98-107 Not Available [facility] [address] [facility] [address], [place], [address], 08/20/2024 20:49:11 08/19/19 25 08/19/2024 COMPR EHENS LISA METAB OLIC PANEL carbon dioxide (co2) 26.0 mmol/ L 18.0-2 9.0 Not Available [facility] [address] [facility] [address], [place], [address], 08/20/2024 20:49:11 08/19/19 25 08/19/2024 COMPR EHENS LISA METAB OLIC PANEL glucose 102 mg/dL 65-99 high Jessika l Fasti n - 99 mg/dL Impai red Fasti n - 125 mg/dL Diagn ostic of Diabe jory: => 126 mg/dL Ameri can [facility], 2007 Not Available [facility] [address] [facility] [address], [place], [address], 08/20/2024 20:49:11 08/19/19 25 08/19/2024 COMPR EHENS LISA METAB OLIC PANEL urea nitrogen (BUN) 13 mg/dL 8-23 Not Available [facility] [address] [facility] [address], [place], [address], 08/20/2024 20:49:11 08/19/19 25 08/19/2024 COMPR EHENS LISA METAB OLIC PANEL creatinine 1.15 mg/dL 0.76-1 .27 Not Available [facility] [address], [place], [address], 08/20/2024 20:49:11 08/19/19 25 08/19/2024 COMPR EHENS LISA METAB OLIC PANEL eGFR 71 mL/mi nute/ 1.73_ m2 >59 MDRD Study Equat ion: The calcu lated GFR is NOT appli cable for pedia tric (< 18 years old) and > 70 year old patie nts and patie nts that are NOT of stead y state . Not Available [facility] [address] [facility] [address], [place], [address], 08/20/2024 20:49:11 08/19/19 25 08/19/2024 COMPR EHENS LISA METAB OLIC PANEL calcium 9.5 mg/dL 8.6-10 .2 Not Available [facility] [address] [facility] [address], [place], [address], 08/20/2024 20:49:11 08/19/19 25 08/19/2024 COMPR EHENS LISA METAB OLIC PANEL protein, total 6.8 gm/dL 6.4-8. 3 Not Available [facility] [address] [facility] [address], [place], [address], 08/20/2024 20:49:11 08/19/19 25 08/19/2024 COMPR EHENS LISA METAB OLIC PANEL albumin 4.3 gm/dL 3.5-5. 2 Not Available [facility] [address] [facility] [address], [place], [address], 08/20/2024 20:49:11 08/19/19 25 08/19/2024 COMPR EHENS LISA METAB OLIC PANEL bilirubin, total 1.10 mg/dL 0.00-1 .20 Not Available [facility] [address] [facility] [address], [place], [address], 08/20/2024 20:49:11 08/19/19 25 08/19/2024 COMPR EHENS LISA METAB OLIC PANEL alkaline phosphatase (ALP) 88 U/L 39-117 Not Available [facility] [address] [facility] [address], [place], [address], 08/20/2024 20:49:11 08/19/19 25 08/19/2024 COMPR EHENS LISA METAB OLIC PANEL aspartate aminotransfe rase (AST) 24 U/L 0-40 Not Available [facility] [address] [facility] [address], [place], [address], 08/20/2024 20:49:11 08/19/19 25 08/19/2024 COMPR EHENS LISA METAB OLIC PANEL alanine aminotransfe rase (ALT) 42 U/L 0-41 high Not Available [facility] [address] [facility] [address], [place], [address], 08/20/2024 20:49:11 08/19/19 25 08/19/2024 COMPR EHENS LISA METAB OLIC PANEL A/G ratio (calculated) 1.7 ratio 1.0-2. 7 Not Available [facility] [address] [facility] [address], [place], [address], 08/20/2024 20:49:11 08/19/19 25 08/19/2024 COMPR EHENS LISA METAB OLIC PANEL globulin (calculated) 2.5 gm/dL 1.5-3. 8 Not Available [facility] [address] [facility] [address], [place], [address], 08/20/2024 20:49:11 08/19/19 25 08/19/2024 COMPR EHENS LISA METAB OLIC PANEL BUN/creatini ne ratio (calculated) 11.3 ratio 8.0-20 .0 Not Available [place] [address] [facility] [address], [place], [address], 08/20/2024 20:49:11 08/19/19 25 08/19/2024 COMPR EHENS LISA METAB OLIC PANEL serum hemolysis index Normal index normal Not Available [facility] [address] [facility] [address], [place], [address], 08/20/2024 20:49:11 08/19/19 25 08/19/2024 LIPID PANEL W/ CALC. LDL cholesterol, total 126 mg/dL 100-19 9 Not Available [facility] [address] [facility] [address], [place], [address], 08/20/2024 20:49:12 08/19/19 25 08/19/2024 LIPID PANEL W/ CALC. LDL HDL cholesterol 32 mg/dL =>40 Not Available [facility] [address] [facility] [address], [place], [address], 08/20/2024 20:49:12 08/19/19 25 08/19/2024 LIPID PANEL W/ CALC. LDL LDL cholesterol (calculated) 76 mg/dL 0-99 Not Available [facility] [address] [facility] [address], [place], [address], 08/20/2024 20:49:12 08/19/19 25 08/19/2024 LIPID PANEL W/ CALC. LDL triglyceride s 90 mg/dL 50-149 Not Available [facility] [address] [facility] [address], [place], [address], 08/20/2024 20:49:12 08/19/19 25 08/19/2024 LIPID PANEL W/ CALC. LDL chol/HDL ratio (calculated) 3.94 ratio 0.00-5 .00 Not Available [facility] [address] [facility] [address], [place], [address], 08/20/2024 20:49:12 08/19/19 25 08/19/2024 LIPID PANEL W/ CALC. LDL VLDL cholesterol (calculated) 18 mg/dL 5-40 Not Available [facility] [address] [facility] [address], [place], [address], 08/20/2024 20:49:12 08/19/19 25 08/19/2024 PROST ATE-S PECIF IC ANTIG EN (PSA) , TOTAL (DIAG NOSTI C) prostate-spe cific antigen, total 2.1 NG/mL 0.0-4. 0 Zac ECLIA METHO DOLOG Y. RESUL TS FROM THIS METHO D IS NOT SARAH TIBLE WITH DIFFE RENT ASSAY METHO D AND CANNO T BE USED INTER POWELL EABLY . Not Available [facility] [address] [facility] [address], [place], [address], 08/20/2024 20:49:13 08/19/19 25 08/19/2024 GLUCO SE ASHLEY ANCE TEST (GTT) , 3-LISA R glucose tolerance test, fasting 102 mg/dL 65-99 high Not Available [facility] [address] [facility] [address], [place], [address], 08/20/2024 20:49:13 08/19/19 25 08/19/2024 GLUCO SE ASHLEY ANCE TEST (GTT) , 3-LISA R glucose tolerance test, 1 hour 164 mg/dL 65-179 Not Available [facility] [address] [facility] [address], [place], [address], 08/20/2024 20:49:13 08/19/19 25 08/19/2024 GLUCO SE ASHLEY ANCE TEST (GTT) , 3-LISA R glucose tolerance test, 2 hour 132 mg/dL 65-154 Not Available [facility] [address] [facility] [address], [place], [address], 08/20/2024 20:49:13 08/19/19 25 08/19/2024 GLUCO SE ASHLEY ANCE TEST (GTT) , 3-LISA R glucose tolerance test, 3 hour 116 mg/dL 65-139 Not Available [facility] [address] [facility] [address], [place], [address], 08/20/2024 20:49:13 08/19/19 25 08/19/2024 GLUCO SE ASHLEY ANCE TEST (GTT) , 3-LISA R serum hemolysis index Normal index normal Not Available [facility] [address] [facility] [address], [place], [address], 08/20/2024 20:49:13 08/19/19 25 08/19/2024 GLUCO SE ASHLEY ANCE TEST (GTT) , 3-LISA R glucose tolerance test, fasting 102 mg/dL 65-99 high Not Available [facility] [address] [facility] [address], [place], [address], 08/20/2024 20:49:13 08/19/19 25 08/19/2024 GLUCO SE ASHLEY ANCE TEST (GTT) , 3-LISA R glucose tolerance test, 1 hour 164 mg/dL 65-179 Not Available [facility] [address] [facility] [address], [place], [address], 08/20/2024 20:49:13 08/19/19 25 08/19/2024 GLUCO SE ASHLEY ANCE TEST (GTT) , 3-LISA R glucose tolerance test, 2 hour 132 mg/dL 65-154 Not Available [facility] [address] [facility] [address], [place], [address], 08/20/2024 20:49:13 08/19/19 25 08/19/2024 GLUCO SE ASHLEY ANCE TEST (GTT) , 3-LISA R glucose tolerance test, 3 hour 116 mg/dL 65-139 Not Available [facility] [address] [facility] [address], [place], [address], 08/20/2024 20:49:13 08/19/19 25 08/19/2024 GLUCO SE ASHLEY ANCE TEST (GTT) , 3-LISA R serum hemolysis index Normal index normal Not Available [facility] [address] [facility] [address], [place], [address], 08/20/2024 20:49:13 08/19/19 25 08/19/2024 GLUCO SE ASHLEY ANCE TEST (GTT) , 3-LISA R glucose tolerance test, fasting 102 mg/dL 65-99 high Not Available [facility] [address] [facility] [address], [place], [address], 08/20/2024 20:49:13 08/19/19 25 08/19/2024 GLUCO SE ASHLEY ANCE TEST (GTT) , 3-LISA R glucose tolerance test, 1 hour 164 mg/dL 65-179 Not Available [facility] [address] [facility] [address], [place], [address], 08/20/2024 20:49:13 08/19/19 25 08/19/2024 GLUCO SE ASHLEY ANCE TEST (GTT) , 3-LISA R glucose tolerance test, 2 hour 132 mg/dL 65-154 Not Available [facility] [address] [facility] [address], [place], [address], 08/20/2024 20:49:13 08/19/19 25 08/19/2024 GLUCO SE ASHLEY ANCE TEST (GTT) , 3-LISA R glucose tolerance test, 3 hour 116 mg/dL 65-139 Not Available [facility] [address] [facility] [address], [place], [address], 08/20/2024 20:49:13 08/19/19 25 08/19/2024 GLUCO SE ASHLEY ANCE TEST (GTT) , 3-LISA R serum hemolysis index Normal index normal Not Available [facility] [address] [facility] [address], [place], [address], 08/20/2024 20:49:13 08/19/19 25 08/19/2024 GLUCO SE ASHLEY ANCE TEST (GTT) , 3-LISA R glucose tolerance test, fasting 102 mg/dL 65-99 high Not Available [facility] [address] [facility] [address], [place], [address], 08/20/2024 20:49:13 08/19/19 25 08/19/2024 GLUCO SE ASHLEY ANCE TEST (GTT) , 3-LISA R glucose tolerance test, 1 hour 164 mg/dL 65-179 Not Available [facility] [address] [facility] [address], [place], [address], 08/20/2024 20:49:13 08/19/19 25 08/19/2024 GLUCO SE ASHLEY ANCE TEST (GTT) , 3-LISA R glucose tolerance test, 2 hour 132 mg/dL 65-154 Not Available [facility] [address] [facility] [address], [place], [address], 08/20/2024 20:49:13 08/19/19 25 08/19/2024 GLUCO SE ASHLEY ANCE TEST (GTT) , 3-LISA R glucose tolerance test, 3 hour 116 mg/dL 65-139 Not Available [facility] [address] [address], [place], [address], 08/20/2024 20:49:13 08/19/19 25 08/19/2024 GLUCO SE ASHLEY ANCE TEST (GTT) , 3-LISA R serum hemolysis index Normal index normal Not Available [facility] [address] [facility] [address], [place], [address], 08/20/2024 20:49:13 08/19/19 25 08/19/2024 MICRO ALBUM IN:CR EATIN INE RATIO , RANDO M URINE microalbumin , urine 7.57 mcg/m L not applic able Not Available [facility] [address] [facility] [address] [address], [place], [address], 08/20/2024 20:49:13 08/19/19 25 08/19/2024 MICRO ALBUM IN:CR EATIN INE RATIO , RANDO M URINE creatinine, urine 570.3 mg/dL not applic able Not Available [facility] [address], [place], [address], 08/20/2024 20:49:13 08/19/19 25 08/19/2024 MICRO ALBUM IN:CR EATIN INE RATIO , RANDO M URINE microalbumin :creatinine ratio, random urine (calculated) 13.3 mg/gm _crea t. Jessika l: 0-29 mg/gm Moder ately incre ased: 30-30 0 mg/gm Sever ly incre ased: >300 mg/gm Not Available [facility] [address], [place], [address], 08/20/2024 20:49:13 04/02/20 CT ABD+p el W con [facility] [place] [address] Orderi ng Provid er: LUIS CARLOS MERCHANT Proced ure(s) : CT ABD+PE L W CON Date of servic e: 023 8:09 AM Provid ed clinic al inform ation: 62 years, Male, mesen teric lympha denopa thy. Proced ure and materi als: Helica l images of the abdome n and pelvis are obtain ed from superi or to the diaphr agm to inferi or to the pubic symphy sis. Images are obtain ed after intrav enous contra st. 100 mL Isovue -370. A dose loweri ng techni que was used for this proced ure, which may includ e, but is not limite d to, dose reduct ion techni que, automa mingo exposu re contro l, iterat lisa recons tructi on, ALARA (As Low As Reason ably Achiev able), or Image Gently techni ques. Compar ad studie s: November 18, 2022., Octobe r 2022. Observ ations : CT abdome n and pelvis : Lung Bases: No pleura l effusi ons or consol idatio ns.Dep endent atelec tatic change s presen t lung bases. Adrena ls:Unr emarka ble Spleen :No spleno megaly . Gallbl adder and Biliar y system :No CT eviden ce of cholel ithias is. No biliar y dilata tion. Phrygi an cap change s involv ing the gallbl adder. This is an anatom ical varian t. Pancre as:Unr emarka ble Liver: Unrema rkable Kidney s:Unre markab le. Bowel: Strand ing change s are presen t within the mesent alfonso. This may relate to chroni c inflam matory change s presen t involv ing the mesent alfonso. This unchan ged compar ed back to 2022. This is a nonspe cific findin g. There are a few scatte red mesent loraine lymph nodes are presen t. These are not enlarg ed by size criter ia. This is simila r as compar ed back to 2022. Some of the lymph nodes measur e approx imatel y 8 to 9 mm in short axis dimens ion and is unchan ged as compar ed back to the prior study. Aorta and Retrop eriton eum:Ao rta is not aneury smal.N o enlarg ed lymph nodes. Pelvic Organs :Urina ry bladde r is unrema rkable . Prosta te enlarg ement is presen t. Bone/M usculo skelet al: No aggres sive osseou s lesion s. Free fluid: None IMPRES PROMISE: Change of siri mesent alfonso are presen t. There is more yasir us than usual mesent loraine lymph nodes that are presen t. These are not enlarg ed by size criter ia and are simila r as compar ed back to 2022. No interv al worsen ing is presen t. These findin gs are nonspe cific. Prosta te gland enlarg ement. Referr ed By: LUIS CARLOS Parmar onical ly Signed By: Sujit ibarra MD on 023 4:08 PM Interp reted By: Sujit ibarra MD, 023 4:00 PM Drinki ng 0815. Ready [place] [address] [place], [address], 04/29/2023 07:35:58 04/02/20 CT, chest , w/o contr ast [facility] [address] [place] [address] Orderi ng Provid er: LUIS CARLOS MERCHANT Proced ure(s) : CT CHEST WO CON Date of servic e: 023 9:34 AM Provid ed clinic al inform ation: 62 years, Male, pulmo nary nodule s. Proced ure and materi als: Helica l images of the chest are obtain ed from superi or to its vascul ature inferi or to the costop hrenic angles . A dose loweri ng techni que was used for this proced ure, which may includ e, but is not limite d to, dose reduct ion techni que, automa mingo exposu re contro l, iterat lisa recons tructi on, ALARA (As Low As Reason ably Achiev able), or Image Gently techni ques. Compar ad studie s: November 18, 2022. Observ ations : Axilla e: There are a few promin ent lymph nodes presen t within the left axilla . These have normal morpho logy howeve r the cortic es appear to be slight ly thicke michelle as compar ed back to prior examin ation. One of the cortic es measur es approx imatel y 3 mm in thickn ess where it previo usly was approx imatel y 2 mm. These could be reacti ve. Medias tinum/ Salo:L eft hilar calcif icatio ns are presen t due to prior granul omatou s diseas e. No enlarg ed medias tinal or hilar lymph nodes. No cardio megaly and minima l perica rdial effusi on.. Lung Parenc hyma:M ild depend ent atelec tatic change s are presen t in the lung bases. No no pleura l effusi ons or consol idatio ns are presen t within the right or left lung base. The pulmon nasra nodule seen in 2022 had resolv ed on the prior study of Nov 18 2022. Visual ized Upper abdomi nal struct ures:V isuali zed upper abdomi nal struct ures on this chest CT is unrema rkable . Please see abdomi nal CT report for furthe r detail s. Bone Window s:Susp ected change s of DISH involv ing the thorac ic spine. IMPRES PROMISE: Slight promin ence to the cortic es of some of the left axilla ry lymph nodes. Some of these measur e approx imatel y 3 mm in thickn ess where they previo usly measur ed approx imatel y 2 and November 03, 2022. These mainta in normal morpho logy and fatty salo. These may be reacti ve. Has the patien t had any recent immuni zation s in the left arm? No pulmon nasra nodule s are presen t in the right or left lung. Minima l atelec tasis of the lung bases. Referr ed By: LUIS CARLOS Parmar onical ly Signed By: Sujit ibarra MD on 023 4:17 PM Interp reted By: Sujit ibarra MD, 023 4:[address] [facility], [place], [address], 04/29/2023 07:35:46 05/29/20 23 US axill nasra non breas t [facility] [place] [address] Orderi ng Provid er: PROVID ER NON-ST AFF This is a summar y report . The comple te report is availa ble in the patien t's medica l record . If you cannot access the medica l record , please contac t the sendin g organi zation for a detail ed fax or copy. EXAMIN ATION: MG DIAG W TACO LT DIGI, US AXILLA RY NON BREAST LT ACCESS ION: [id number], [id number] INDICA TIONS: LYMPHE MANDI OF LEFT UPPER EXTREM ITY TECHNI QUE: Digita l full field CC and MLO screen ing mammog richard bilate rally to includ e 3-D Tomosy nthesi s techni que. This study was read with the assist ance of a Caviar er-aid ed detect ion system . HISTOR Y: Patien t withou t curren t compla ints. Patien t report s flu vaccin ation within the left arm 1 week prior to compar ad chest CT which commen mingo on asymme tric likely reacti ve lymph nodes within the left axilla . No arm swelli ng or axilla ry lump. No person al or first degree family histor y of breast cancer . COMPAR AD: CT chest 023 TISSUE DENSIT Y: The breast tissue is almost entire ly fatty. FINDIN GS: Mammog roger: Few typica lly benign round calcif icatio ns No suspic ious microc alcifi cation , focal asymme try, or mass. No candida ectura l distor tion. Trace flame- shaped retroa reolar gyneco mastia . No axilla ry adenop athy. Sonogr am: Target ed sonogr aphic evalua tion of the left axilla demons trates a few renifo rm axilla ry lymph nodes, which demons trate parall el orient ation, unifor mly hypere choic salo, and thin unifor m periph eral hypoec hoic cortic es. Centra l pedicu lar vascul ar flow withou t hyperv ascula rity. All lymph nodes measur e less than 10 mm in short axis. No atypic al lymph node or lympha denopa thy. No suspic ious mass or fluid collec tion within the left axilla . IMPRES PROMISE: No mammog raphic or sonogr aphic eviden ce of malign reece. Left axilla ry lymph nodes noted on CT likely reacti ve given patien t's flu vaccin ation within the left arm 1 week prior to examin ation. No axilla ry adenop athy or atypic al lymph nodes within the axilla .. RECOMM ENDATI ON: Per clinic al mayis onLeft OVERAL L IMAGIN G ASSESS MENT: ACR BI-RAD S 2 - BENIGN FINDIN G(S). Ordere d By: LUIS CARLOS Parmar onical ly Signed By: Carlota Molina on 023 10:05 AM Interp reted By: Bettinatamara Molina, 023 10:01 AM [facility] [address] [facility], [place], [address], 06/01/2023 10:24:48 05/29/20 23 mg diag W taco lt digi [facility] [place] [address] Orderi ng Provid er: LUIS CARLOS MERCHANT This is a summar y report . The comple te report is availa ble in the [facility] l record . If you cannot access the medica l record , please donal t the theresa lora for a detail ed fax or copy. EXAMIN ATION: MG DIAG W TACO LT DIGI, US AXILLA RY NON BREAST LT ACCESS ION: [id number], [id number] INDICA TIONS: LYMPHE MANDI OF LEFT UPPER EXTREM ITY TECHNI QUE: Digita l full field CC and MLO screen ing mammog richard bilate rally to includ e 3-D Tomosy nthesi s techni que. This study was read with the assist ance of a Caviar er-aid ed detect ion system . HISTOR Y: Chon t withou t curren t compla ints. Patichayito t report s flu vaccin ation within the left arm 1 week prior to compar ad chest CT which commen mingo on asymme tric likely reacti ve lymph nodes within the left axilla . No arm swelli ng or axilla ry lump. No person al or first degree family histor y of breast cancer . COMPAR AD: CT chest 023 TISSUE DENSIT Y: The breast tissue is almost entire ly fatty. FINDIN GS: Mammog roger: Few typica lly benign round calcif icatio ns No suspic ious microc alcifi cation , focal asymme try, or mass. No candida ectura l distor tion. Trace flame- shaped retroa reolar gyneco mastia . No axilla ry adenop athy. Sonogr am: Target ed sonogr aphic evalua tion of the left axilla demons trates a few renifo rm axilla ry lymph nodes, which demons trate parall el orient ation, unifor mly hypere choic salo, and thin unifor m periph eral hypoec hoic cortic es. [facility] vascul ar flow withou t hyperv ascula rity. All lymph nodes measur e less than 10 mm in short axis. No atypic al lymph node or lympha denopa thy. No suspic ious mass or fluid collec tion within the left axilla . IMPRES PROMISE: No mammog raphic or sonogr aphic eviden ce of malign reece. Left axilla ry lymph nodes noted on CT likely reacti ve given patien t's flu vaccin ation within the left arm 1 week prior to examin ation. No axilla ry adenop athy or atypic al lymph nodes within the axilla .. RECOMM ENDATI ON: Per clinic al decisi onLeft OVERAL L IMAGIN G ASSESS MENT: ACR BI-RAD S 2 - BENIGN FINDIN G(S). Ordere d By: LUIS CARLOS Parmar onical ly Signed By: Carlota Molina on 023 10:05 AM Interp reted By: Carlota Molina, 023 10:[address], [address], 06/01/2023 10:24:48 08/05/19 24 07/27/2023 endos iris sanchez (PROC ) No observ ation record ed. Not Available 2023 17:49:33 08/05/19 24 07/29/2023 colon oscop y outco mes repor ting* No observ ation record ed. Not Available 2023 08:29:12 08/05/19 24 07/27/2023 colon oscop y proce dure (PROC ) No observ ation record ed. Not Available 2023 17:49:33 11/02/[address] [facility] [place] [address] Orderi ng Provid er: KAYLA MEZA EXAMIN ATION: CTA CHEST WITH CONTRA ST, DISSEC TION INDICA TION: Aortic aneury sm. COMPAR AD: CT chest withou t contra st on 10/29/19 23. CTA of the chest on 023. TECHNI QUE: Comput ed tomogr aphy angiog richard was perfor med of the chest after admini strati on of intrav enous contra st, 100mL of IOPAMI DOL 76 % IV SOLN was given accord ing to dissec tion protoc ol withou t compli cation . 3-D reform atted MIPS were constr ucted at a [employer] [facility] under physic stacie reese and review ed. Radiat ion dose reduct ion techni que(s) were used. FINDIN GS: The ascend ing thorac ic aorta is at the upper limits of normal in calibe r measur ing 3.9 cm at the level of the main pulmon nasra artery . No dissec tion, aneury sm, or penetr ating athero sclero tic ulcer. The thorac ic aorta has a normal three- vessel left-s ided config uratio n. Airway s are patent . No pleura l effusi on, pneumo thorax , or consol idatio n. No suspic ious nodule or mass. No cardio megaly or perica rdial effusi on. The main pulmon nasra artery is normal in calibe r. No medias tinal, hilar, or axilla ry lympha denopa thy. The esopha ilan and visual ized upper abdome n are normal . No acute osseou s abnorm ality or destru ctive bone lesion s. IMPRES PROMISE: Ascend ing thorac ic aorta measur ing at the upper limits of normal (3.9 cm). No aneury sm or acute aortic abnorm ality. Ordere d By: KAYLA MEZA Electr onical ly Signed By: Raffaele loera MD on 11/02/19 12:24 PM Interp reted By: Raffaele loera MD, 11/02/19 12:14 PM [facility] [address] [facility], [place], [address], 11/17/2023 11:01:45 02/19/20 24 02/22/2024 elect rocar diogr am No observ ation record ed. [facility], [facility] [address], [place], [address], 02/22/2024 11:17:09 02/19/20 24 02/19/2024 elect rocar diogr am No observ ation record ed. [facility], [facility] [address], [place], [address], 02/22/2024 11:17:23 03/28/20 24 03/24/2024 CT, abdom en + pelvi s, w/ contr ast No observ ation record ed. [facility] [address], [place], [address], 04/04/2024 13:58:42 06/09/20 24 06/08/2024 cathie metry testi ng* No observ ation record ed. [facility], [facility] [address], [place], [address], 06/14/2024 13:48:05 11/03/19 25 use echoc ardio gram W con [facility] [place] [address] Orderi ng Provid er: KAYLA Dawkinsca rdiogr aphy Report Pat.Na me: BRYANT NIELSEN Pat.ID : [id number]Avinash e: 11/02/19 25 Refer. : [id number] PAUL GARZA EWDPRO V EWDPRO V Exam Time: 8:46:0 0 AM Study Type:E CHO WITH CARDIA C DOPPLE R COMP Height : 71 in Weight : 219 lb BSA: 2.19 m2 Age: [birth year],[age]Y Sex: M BP: 123/69 HR: 48 bpm Sonogr phr: Jesus r, Michael n [facility] Pat. Stat.: Outpat ient Reason for Study: Mitral regurg itatio n Proced ures: 2D, M-mode , Dopple r, Color Flow, Defini ty was used to enhanc e endoca rdial defini tion. The study qualit y is techni [facility]. Race: B ++++++ ++++++ ++++++ ++++++ ++++++ ++++++ SUMMAR Y: ++++++ ++++++ ++++++ ++++++ ++++++ ++++++ The left ventri cular size is normal . Estima mingo left ventri cular ejecti on fracti on is 55-60% . Mild concen tric left ventri cular hypert rophy. Left ventri cular diasto lic functi on is normal . The right ventri cular size is normal . Right ventri cular systol ic functi on is normal . The left atrial size is normal . Right atrial size is normal . No signif icant valvul ar abnorm alitie s. The peak pulmon nasra artery systol ic pressu re is estima mingo to be approx imatel y 27 mmHg. ++++++ ++++++ ++++++ ++++++ ++++++ ++++++ FINDIN GS: ++++++ ++++++ ++++++ ++++++ ++++++ ++++++ LV: The left ventri cular size is normal . Estima mingo left ventri cular ejecti on fracti on is 55-60% . Mild concen tric left ventri cular hypert rophy. Left ventri cular diasto lic functi on is normal . RV: The right ventri cular size is normal . Right ventri cular systol ic functi on is normal . IVS: No eviden ce of ventri cular septal defect . LA: The left atrial size is normal . RA: Right atrial size is normal . IAS: Atrial septum appear s intact . HIEN: No eviden ce of perica rdial effusi on. AO: Normal aortic root. Ascend ing aorta is normal . The proxim al ascend ing aorta measur es 3.9cm. PA: The peak pulmon nasra artery systol ic pressu re is estima mingo to be approx imatel y 27 mmHg. Estima mingo right atrial pressu re of 3 mmHg. SVn: Inferi or vena cava is normal . AV: Aortic valve is trilea flet. No eviden ce of aortic valve stenos is. No eviden ce of aortic valve regurg itatio n. MV: Trace mitral regurg itatio n. No eviden ce of mitral stenos is. PV: No eviden ce of pulmon ic valve stenos is. No eviden ce of pulmon ic regurg itatio n. TV: Trace tricus pid regurg itatio n. No eviden ce of tricus pid valve stenos is. ++++++ ++++++ ++++++ ++++++ ++++++ ++++++ MEASUR EMENTS : ++++++ ++++++ ++++++ ++++++ ++++++ ++++++ DOPPLE R LVOT LVOTpk PG 3 mmHg LVOTmn PG 2 mmHg LVOTpk Franck 90.7 cm/s (70-11 0) LVOT SV 91 ml LVOT TVI 22 cm AV Forwar d Flow AV TVI 33.5 cm AV pkPG 8 mmHg AV pkVel 143 cm/s (100-1 70) Area (TVI) 2.73 cm2 (3-5)* AV mnPG 4 mmHg Area (Franck) 2.63 cm2 (3-5)* MV Forwar d Flow MV DeTm 240 msec MV E/A 1 MVA P1/2t 3.14 cm2 (4-6)* MV pkE 55.8 cm/s (60-13 0)* MV P1/2t 70 msec (30-60 )+* MV pkA 53.2 cm/s PV Forwar d Flow PV pkVel 82 cm/s (60-90 ) PV AC 111 msec PV pkPG 3 mmHg RVOT RVOTpk V 56.2 cm/s TV Regurg Flow TV pkPG 24 mmHg TV pkVel 247 cm/s (30-70 )* Lat E' Lat e 11.1 cm/s Lat E/E' Lat E/e 5 Med E' Med e 8.38 cm/s Med E/E' Med E/e 6.7 Aortic Valve Aortic Valve Ar 1.25 Aortic Valve Ve 0.63 PV Antegr nela Flow Accele ration Sl 500 cm/s2 Right Atrium Simpso n's Disk 20 Right Ventri oneyda Right Ventri oneyda 11.7 cm/s 2D Left Ventri oneyda LVIDd 4.7 cm (3.6-5 .2) LV ESV 68.5 ml LVIDs 3 cm (2.3-3 .9) LV ESV 65.9 ml LngAxd 8.88 cm LVESV BP 68 ml LngAxd 8.85 cm LV EF 57.7 % LV EDV 162 ml LV EF 58 % LV EDV 157 ml LV EF BP 57.2 % LVEDV BP 159 ml LV SV 93.4 ml LngAxs 7.37 cm LV SV 91.1 ml LngAxs 7.18 cm LV SV BP 91 ml LVPW LVPWd 1 cm Ventri cular Septum IVSd 1.3 cm Left Atrium LA VOLBP 54.2 ml Aorta Ao Rtd 3.2 cm (zsc 0.6) Ao Asc 3.9 cm (zsc 4)* LVOT LVOT 2.3 cm LVOTAr ea 4.15 cm2 Ratios IVS LA Biplan e LAVol I BP 24.7 ml/m2 RA Single Plane Right Atrium MO 12.6 mm Right Atrium Sy 45 ml Right Atrium Sy 58.8 mm Right Atrium Sy 20.5 ml/m2 Right Atrium Sy 17.7 cm2 Right Ventri oneyda Right Ventri oneyda 37 mm Right Ventri oneyda 28 mm Major Donnelly 62 mm MMODE TA Tricus pid Annul 31.6 mm 2024 11:21 AM Kayla meza M.D. [address], [place], [address], 11/02/2024 21:43:33 Result Notes None recorded. Problems Name Problem SNOMED Code Status Onset Date Resolution Date Notes Provider Name and Address Organization Details Recorded Time Hyperlip idemia 22417902 Active CORRIE MEIYCOX null, [facility] 6 13:31:33 Benign essentia l hyperten promise 7883556 Active CORRIE JAYCOX null, [facility] 6 13:31:43 Chest pain 26287492 Active CORRIE JAYCOX null, [facility] 6 13:32:24 Abdomina l pain 17158926 Active -- ? [facility] Luis Carlos Merchant MD [address], [place], [address], [facility] 8 09:16:46 Lymphede ma 830762327 Active [facility] HAMIDAYCOX null, [facility] 6 13:33:15 Asthma 686897451 Active 2016 Luis Carlos Merchant MD [address], [place], [address], [facility] 7 06:50:23 Rupture of rotator cuff of right shoulder 27831072084 745870 Active 2017 -- right partial thicknes s tear on MRI from [place] done on 09/13/16 Luis Carlos Merchant MD [address], [place], [address], [facility] 8 09:11:24 Gastroes ophageal reflux disease 737136312 Completed 201707/01/2017 Luis Carlos Merchant MD [address], [place], [address], [facility] 8 09:13:51 Osteoart hritis of knee 495664885 Active 2017 -- [facility] (L>R) -- s/p synvisc injectio n x 3 (w/ previous steroid injectio ns also) Luis Carlos Merchant MD [address], [place], [address], [facility] 8 09:24:11 Impotenc e of organic origin Active 2017 Luis Carlos Merchant MD [address], [place], [address], [facility] 8 10:51:23 Flank pain 594885363 Active 2022 Luis Carlos Merchant MD [address], [place], [address], [facility] 3 12:17:35 Nausea 264999098 Active 2022 Luis Carlos Merchant MD [address], [place], [address], [facility] 3 12:19:01 Multiple nodules of lung 117961925 Active 2022 Luis Carlos Merchant MD [address], [place], [address], [facility] 3 18:23:36 Benign prostati c 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 719381439 Active 2022 Luis Carlos Merchant MD [address], [place], [address], [facility] 3 18:23:42 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 2022 Luis Carlos Merchant MD [address], [place], [address], [facility] 3 18:24:30 Essentia l hyperten promise 93673129 Active 2022 Luis Carlos Merchant MD [address], [place], [address], [facility] 3 22:05:49 Hypergly cemia 56606363 Active 2022 Luis Carlos Merchant MD [address], [place], [address], [facility] 3 21:01:01 COVID-19 272829010 Active 2022 Luis Carlos Merchant MD [address], [place], [address], [facility] 3 10:53:14 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 Procedures Surgical History Date Name Laterality Status Provider Name and Address Organization Details Recorded Time 05/23/20 19 Knee Surgery completed Isabella Hernandez [facility] 09/16/2019 08:59:19 11/11/19 18 Colonoscopy completed Luis Carlos Merchant MD [address], [place], [address], [facility] 02/06/2018 20:05:45 02/05/20 15 Colonoscopy completed Kelly Jiménez [facility] 07/01/2017 08:40:05 Hernia Repair completed CORRIE GRIER [facility] 04/11/2016 13:35:21 Shoulder joint surgery completed Luis Carlos Merchant MD [address], [place], [address], [facility] 07/01/2017 09:21:02 Imaging Results None recorded. Procedure Notes None recorded. Medical Equipment None Reported. Allergies No known drug allergies Medications Name Sig Start Date Stop Date Status Note LastModified by Organization Details LastModified Time multiplex covid-19 and flu test TEST DIRECTED 10/03 completed Not Available Not Available Not Available losartan 50 mg tablet active Not Available Not Available Not Available cyclobenz aprine 10 mg tablet TAKE 1 TABLET BY MOUTH THREE TIMES DAILY active Not Available Not Available No t Available atorvasta tin 20 mg tablet TAKE 1 TABLET BY MOUTH AT BEDTIME active Not Available Not Available No t Available naproxen 375 mg tablet TAKE 1 TABLET BY MOUTH TWICE DAILY 10/03 completed Not Available Not Available Not Available cyanocoba tracey (vit B-12) 100 mcg tablet active Not Available Not Available Not Available clindamyc in HCl 300 mg capsule 12/11 completed Not Available Not Available Not Available trazodone 50 mg tablet 09/06 completed Not Available Not Available Not Available sildenafi l 50 mg tablet TAKE 1 TABLET BY MOUTH EVERY DAY NEEDED 10/03 completed Not Available Not Available Not Available cetirizin e 10 mg tablet TAKE 1 TABLET BY MOUTH EVERY DAY 10/03 completed Not Available Not Available Not Available azithromy faith 250 mg tablet 08/23 completed Not Available Not Available Not Available ibuprofen 800 mg tablet 12/11 completed Not Available Not Available Not Available fluconazo le 150 mg tablet TAKE 1 TABLET BY MOUTH EVERY DAY 10/03 completed Not Available Not Available Not Available benzonata te 200 mg capsule 12/11 completed Not Available Not Available Not Available ranitidin e 300 mg tablet 06/04 completed Not Available Not Available Not Available sumatript an 100 mg tablet active Not Available Not Available Not Available hydrocodo ne 5 mg-acetam inophen 325 mg tablet 12/11 completed Not Available Not Available Not Available ondansetr on HCl 4 mg tablet 12/11 completed Not Available Not Available Not Available famotidin e 40 mg tablet 1BID 04/22 completed Not Available Not Available Not Available prednison e 20 mg tablet Take 3 tablets every day by oral route in the morning. 10/03 completed Not Available Not Available Not Available metronida zole 500 mg tablet TAKE 1 TABLET BY MOUTH EVERY 8 HOURS 08/18 completed Not Available Not Available Not Available acetamino phen 300 mg-codein e 30 mg tablet 04/22 completed Not Available Not Available Not Available sulfameth oxazole 800 mg-trimet hoprim 160 mg tablet TAKE 1 TABLET BY MOUTH EVERY 12 HOURS 10/03 completed Not Available Not Available Not Available peg-elect rolyte solution 420 gram oral solution 12/11 completed Not Available Not Available Not Available omeprazol e 40 mg capsule,d elayed release TAKE 1 CAPSULE DAILY active Not Available Not Available No t Available tramadol 50 mg tablet 09/15 completed Not Available Not Available Not Available amitripty line 50 mg tablet active Not Available Not Available No t Available sildenafi l 100 mg tablet TAKE 1 TABLET DAILY NEEDED ONLY active Not Available Not Available No t Available oxycodone -acetamin ophen 5 mg-325 mg tablet 12/11 completed Not Available Not Available Not Available cyanocoba tracey (vit B-12) 500 mcg tablet 11/16 completed -- duplicat e Not Available Not Available Not Available baclofen 10 mg tablet 1 tab once up to 3 times a day as needed; can cause drowsine ss 09/06 completed Not Available Not Available Not Available benzonata te 100 mg capsule TAKE 1 CAPSULE BY MOUTH THREE TIMES DAILY FOR 10 DAYS 10/03 completed Not Available Not Available Not Available cephalexi n 500 mg capsule 06/04 completed Not Available Not Available Not Available pantopraz ole 40 mg tablet,de layed release 09/15 completed -- on [facility] Not Available Not Available Not Available triamcino lone acetonide 0.1 % topical ointment APPLY A THIN LAYER TO THE AFFECTED AREA(S) BY TOPICAL ROUTE 2 TIMES PER DAY active Not Available Not Available No t Available prednison e 50 mg tablet 09/15 completed Not Available Not Available Not Available lidocaine 5 % topical patch active Not Available Not Available Not Available promethaz ine 25 mg tablet 06/04 completed Not Available Not Available Not Available losartan 25 mg tablet 11/16 completed -- on 50 mg now Not Available Not Available Not Available diclofena c sodium 75 mg tablet,de layed release 09/15 completed Not Available Not Available Not Available monteluka st 10 mg tablet TAKE 1 TABLET BY MOUTH EVERY DAY active Not Available Not Available No t Available bisacodyl 5 mg tablet,de layed release 11/16 completed Not Available Not Available Not Available mupirocin 2 % topical ointment APPLY TOPICALL Y TO THE AFFECTED AREA THREE TIMES DAILY FOR 14 DAYS 10/03 completed Not Available Not Available Not Available triamtere ne 75 mg-hydroc hlorothia zide 50 mg tablet 06/04 completed -- changed to Bystolic b/c of thoracic aneurysm Not Available Not Available Not Available methylpre dnisolone 4 mg tablets in a dose pack FOLLOW PACKAGE DIRECTIO NS 10/03 completed Not Available Not Available Not Available albuterol sulfate HFA 90 mcg/actua tion aerosol inhaler 2 puffs up to 4 times a days as needed only; Must go to the [facility] if no relief after the 4th treatmen t. active Not Available Not Available No t Available ketoconaz ole 2 % topical cream APPLY TOPICALL Y TO THE AFFECTED AREA EVERY DAY active Not Available Not Available No t Available ondansetr on 4 mg disintegr ating tablet DISSOLVE 1 TABLET ON THE TONGUE EVERY 6 HOURS NEEDED FOR NAUSEA OR VOMITING 10/03 completed Not Available Not Available Not Available cefdinir 300 mg capsule TAKE 1 CAPSULE BY MOUTH EVERY 12 HOURS 10/03 completed Not Available Not Available Not Available naproxen 500 mg tablet TAKE 1 TABLET BY MOUTH TWICE DAILY active Not Available Not Available No t Available amoxicill in 875 mg-potass ium clavulana te 125 mg tablet TAKE 1 TABLET BY MOUTH TWICE DAILY 08/18 completed Not Available Not Available Not Available simethico ne 80 mg chewable tablet 11/16 completed Not Available Not Available Not Available rosuvasta tin 10 mg tablet Take 1 tablet every day by oral route for 90 days. 2023 active Not Available Not Available Not Avai lable tadalafil 20 mg tablet TAKE 1 TABLET BY MOUTH DAILY active Not Available Not Available No t Available sildenafi l (pulmonar y hypertens ion) 20 mg tablet 09/15 completed Not Available Not Available Not Available budesonid e-formote rol HFA 160 mcg-4.5 mcg/actua tion aerosol inhaler INHALE 2 PUFFS BY MOUTH TWICE DAILY 10/03 completed Not Available Not Available Not Available Bystolic 5 mg tablet Take 1 tablet every day by oral route. 12/11 completed -- increase d to 10 mg qd Not Available Not Available Not Available nebivolol 10 mg tablet TAKE 1 TABLET BY MOUTH EVERY DAY active Not Available Not Available No t Available diclofena c 1 % topical gel active Not Available Not Available Not Available Xifaxan 550 mg tablet Take 1 tablet 3 times a day by oral route. 09/15 completed Not Available Not Available Not Available Breo Ellipta 100 mcg-25 mcg/dose powder for inhalatio n Inhale 1 puff every day by inhalati on route. 09/24 completed -- pt reports he has not been taking since he has no sx & not use the rescue Albutero l since Feb 2020 Not Available Not Available Not Available Virtussin AC 10 mg-100 mg/5 mL oral liquid 12/11 completed Not Available Not Available Not Available Xhance 93 mcg/actua tion breath activated aerosol [place] 1 spray twice a day by intranas al route. 11/16 completed Not Available Not Available Not Available Vitals Date Recorded Body height Heart rate Respiratory rate Body temperature Body mass index (BMI) Body weight Systolic blood pressure Diastolic blood pressure Provider Name and Address Organization Details Last Updated DateTime 4 180.34 cm 58 /min 16 /min 98.1 [degF] 30.4 kg/m2 34224.1 4 g 127 mm[Hg] 79 mm[Hg] [facility] 4 08:39:36 Date Recorded Body height Heart rate Respiratory rate Body temperature Body mass index (BMI) Body weight Systolic blood pressure Diastolic blood pressure Provider Name and Address Organization Details Last Updated DateTime 4 180.34 cm 60 /min 16 /min 97.7 [degF] 30.5 kg/m2 77707.7 3 g 134 mm[Hg] 74 mm[Hg] [facility] 4 09:55:33 Date Recorded Body height Heart rate Respiratory rate Body temperature Body mass index (BMI) Body weight Systolic blood pressure Diastolic blood pressure Provider Name and Address Organization Details Last Updated DateTime 4 180.34 cm 54 /min 16 /min 97.7 [degF] 30.7 kg/m2 92849.3 2 g 121 mm[Hg] 80 mm[Hg] [facility] 4 10:03:01 Date Recorded Body height Heart rate Respiratory rate Body temperature Body mass index (BMI) Body weight Systolic blood pressure Diastolic blood pressure Provider Name and Address Organization Details Last Updated DateTime 3 180.34 cm 55 /min 16 /min 97.6 [degF] 30.7 kg/m2 08467.3 2 g 131 mm[Hg] 62 mm[Hg] Marge Davies [facility] 3 08:44:37 Date Recorded Body height Heart rate Respiratory rate Body temperature Body mass index (BMI) Body weight Systolic blood pressure Diastolic blood pressure Provider Name and Address Organization Details Last Updated DateTime 4 180.34 cm 57 /min 16 /min 97.5 [degF] 31.7 kg/m2 468016. 47 g 137 mm[Hg] 74 mm[Hg] [facility] 10:18:58 Social History Question Answer Notes LastModified by Organizat ion Details LastModified Time Tobacco Smoking Status Never Smoker Not Available [facility] 04/13/2020 03:11:40 Do You Have An Advance Directive? No [email or web address] Information n ot available 08/18/2023 What Is Your Level Of Caffeine Consumption? Occasional [email or web address] Information not available 08/18/2023 What Is Your Code Status? Full Code [email or web address] Information not available 08/18/2023 In The 14 Days Before Symptom Onset, Have You Had Close Contact With A Laboratory-confirm ed COVID-19 While That Case Was Ill? No [email or web address] Information n ot available 08/18/2023 In The 14 Days Before Symptom Onset, Have You Had Close Contact With A Person Who Is Under Investigation For COVID-19 While That Person Was Ill? No [email or web address] Information not available 08/18/2023 Have You Been To An Area Known To Be High Risk For COVID-19? No [email or web address] Information not available 08/18/2023 What Type Of Diet Are You Following? REGULAR [email or web address] Information n ot available 08/18/2023 Which Illicit Or Recreational Drugs Have You Used? None [id number] Information not available 04/13/2020 Are There Any Guns Present In Your Home? No [email or web address] Information not available 08/18/2023 Hard Of Hearing Or Deaf In One Or Both Ears? No [email or web address] Information not available 08/18/2023 Legally Blind In One Or Both Eyes? No [email or web address] Information no t available 08/18/2023 Live Alone Or With Others? With Others [email or web address] Information not available 08/18/2023 Marital Status [email or web address] Informatio n not available 08/18/2023 What Was The Date Of Your Most Recent Tobacco Screening? 06/08/2024 [email or web address] Information not available 06/08/2024 Seat Belts Used Routinely Yes [email or web address] Information not available 08/18/2023 Smoke Alarm In Home Yes [email or web address] Information not available 08/18/2023 How Much Tobacco Do You Smoke? No [id number] Information not available 04/13/2020 How Many Years Have You Smoked Tobacco? 0 [email or web address] Information not available 08/18/2023 Sex: Unknown Functional Status Question Answer Note LastModified by Organizat ion Details LastModified Time What is your level of alcohol consumption? None [id number] Information not available 04/13/2020 Do you or have you ever used smokeless tobacco? Never used smokeless tobacco [email or web address] Information not available 08/18/2023 Are you currently employed? Yes Information not available 08/18/2023 Are you able to care for yourself? 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 Never used electronic cigarettes Information not available 08/18/2023 What is your exercise level? Occasional [email or web address] Information not available 08/18/2023 Mental Status None recorded. Family History Relationship Description Onset Age of this Age Resolved Age Notes LastModified by Organization Details LastModified Time Father Diabetes mellitus [email or web address] Not available 2015 13:34:30 Mother Rheumatic fever [email or web address] Not available 05/29 09:41:24 Notes:-- no FH for CAD or ca ncers Medical History No medical history recorded. Immunizations Vaccine Type Date Status Note Provider Nam e and Address Organization Details Recorded Time COVID-19, mRNA, LNP-S, PF, 100 mcg/0.5mL dose or 50 mcg/0.25mL dose 03/22/202 1 completed Jeanette Parsons null, [facility] 08/18/2023 08:34:37 COVID-19, mRNA, LNP-S, PF, 100 mcg/0.5mL dose or 50 mcg/0.25mL dose 1 completed Jeanette Parsons [facility], [facility] 08/18/2023 08:34:38 Influenza, split virus, quadrivalent, preservative 6 completed Jeanette Parsons null, [facility] 08/18/2023 08:34:37 Tdap 4 completed Luis Carlos Merchant MD [address], [place], [address], [facility] 07/01/2017 09:15:45 Past Encounters Encounter ID Performer Location Encounter Start Date Encounter Closed Date Diagnosis/Indication Diagnosis SNOMED-CT Code Diagnosis ICD10 Code Diagnosis Note [id number] Luis Carlos Merchant MD [place] [employer] [facility] [address] [place] [address] 04/11/2016 12:39:27 04/11/2016 14:17:36 Benign essential hypertension 8636899 I10 Hyperlipidemia 12367022 E78.5 Abdominal pain 11617557 R10.9 -- pt reports he had just done CT scan at [place] and he will try to obtain reports for me. Chest pain 65826628 R07. 9 (Constant x2 months) -- will order testings Headache 93114272 R51 (chronic) -- did MRI at [place] and pt will obtain reports for me. Screening for cancer 158 84305 Z12.9 -- Patient had a normal screening colonoscop y done on 02/04/11 at the [facility] [id number] Luis Carlos Merchant MD [place] [employer] [facility] [address] [place] [address] 06/04/2016 09:27:04 06/04/2016 11:21:44 Headache 75461994 R51 (chronic) -- did MRI at [place] and pt will obtain reports for me. Abdominal pain 54153294 R10.9 -- pt reports he had just done CT scan at [place] and he will try to obtain reports for me. Screening for cancer 158 44338 Z12.9 -- Patient had a normal screening colonoscop y done on 02/04/11 at the [facility] Chest pain 22753455 R07. 9 (Constant x2 months) -- will order testings Benign ess ential hypertension 6409888 I10 Hyperlipidemia 60441068 E78.5 Aneurysm o f thoracic aorta 892271490 I71.2 3.8 cm on 04/30/16; will repeat CT scan around 10/28/16 Allergic rhinitis 198455 04 J30.9 Impotence of organic origin 925156822 N52.9 [id number] Luis Carlos Merchant MD [employer] [address] [place] [address] 09/02/2016 10:31:18 09/02/2016 12:22:47 Benign essential hypertension 0088731 I10 Aneurysm o f thoracic aorta 515274206 I71.2 3.8 cm on 04/30/16; will repeat CT scan around 10/28/16 Hyperlipidemia 96782977 E78.5 Chest pain 74109444 R07. 9 (Constant x2 months) -- will order testings Headache 82801660 R51 (chronic) -- did MRI at [place] and pt will obtain reports for me. Abdominal pain 09663699 R10.9 -- pt reports he had just done CT scan at [place] and he will try to obtain reports for me. Allergic rhinitis 243475 04 J30.9 Impotence of organic origin 897899529 N52.9 Screening for cancer 158 81578 Z12.9 -- Patient had a normal screening colonoscop y done on 02/04/11 at the [facility] Body mass index 25-29 - overweight 058780672 Z68.29 -- Advise weight loss; patient lost 3.5 # since his last visit-- Patient's BMI today is 28.8 (idealisti c than 20-25); patient is muscular. Viral screening 06296237 4 Z11.59 Depression screening 171 597708 Z13.89 -- Negative for depression symptoms Active or passive immunization 332420861 Z23 Dyspnea 736632906 R06.00 (w/ tendency to cough sometimes) [id number] Luis Carlos Merchant MD [employer] [address] [place] [address] 12/11/2016 11:52:37 12/11/2016 12:47:21 Benign essential hypertension 3709886 I10 Dyspnea 559755163 R06.00 (w/ tendency to cough sometimes) -- resolved Aneurysm o f thoracic aorta 303171594 I71.2 3.8 cm on 04/30/16; will repeat CT scan around 10/28/16 Hyperlipidemia 52533878 E78.5 Chest pain 59609966 R07. 9 (Constant x2 months) -- resolved. Headache 03403117 R51 (chronic) -- did MRI at [place] and pt had still not obtain reports for me; Currently asymptomat ic Abdominal pain 92012688 R10.9 -- pt reports he had just done CT scan at [place] and he will try to obtain reports for me. Allergic rhinitis 569319 04 J30.9 Impotence of organic origin 721432676 N52.9 Screening for cancer 158 08763 Z12.9 -- Patient had a normal screening colonoscop y done on 02/04/11 at the [facility]-- - PSA level of 0.9 on 06/04/16 Body mass index 25-29 - overweight 874583157 Z68.29 -- Advise weight loss; patient gained 0.5 # since his last visit-- Patient's BMI today is 28.9 (idealisti c than 20-25); patient is muscular. Viral screening 00656772 4 Z11.59 -- Appetite C. antibodies nonreactiv e on 09/02/16 Depression screening 171 665056 Z13.89 -- Negative for depression symptoms Active or passive immunization 438469380 Z23 Asthma 586129396 J45.90 9 [id number] Luis Carlos Merchant MD [employer] [facility] [facility] [address] [place] [address] 01/28/2017 12:19:34 01/28/2017 14:22:31 Neck pain 60503141 M54.2 Pain in th oracic spine 618484922 M54.9 Low back pain 361674510 M54.5 [id number] Luis Carlos Merchant MD [employer] [facility] [address] [place] [address] 03/17/2017 08:35:30 03/17/2017 09:21:37 Adult health examination 882143730 Z00.00 Neck pain 48807878 M54.2 -- pt reports that Chiropract or Dr Morrell is helping him (80-90% better) Low back pain 872523486 M54.5 -- pt reports that Chiropract or Dr Morrell is helping him (80-90% better) Benign ess ential hypertension 1457164 I10 -- last EKG was done 06/04/16-- BP controlled Aneurysm o f thoracic aorta 036957759 I71.2 3.8 cm on 04/30/16; ordered CT scan to be on 10/28/16 but not done; will re-order Hyperlipidemia 28307338 E78.5 Headache 19207618 R51 (chronic) -- did MRI [place] and pt had still not obtain reports for me; Currently asymptomat ic Abdominal pain 76562971 R10.9 -- pt reports he had just done CT scan at [place] and he will try to obtain reports for me. Allergic rhinitis 954611 04 J30.9 Impotence of organic origin 900093768 N52.9 Body mass index 25-29 - overweight 203303174 Z68.29 -- Advise weight loss; patient gained 3 # since his last visit-- Patient's BMI today is 28.9 (idealisti c than 20-25); patient is muscular. Viral screening 73077438 4 Z11.59 -- Appetite C. antibodies nonreactiv e on 09/02/16 Depression screening 171 958503 Z13.89 -- Negative for depression symptoms Active or passive immunization 859997974 Z23 Asthma 336195298 J45.90 9 -- last spirometry was done 09/02/16 Screening for malignant neoplasm of colon 505486021 Z12.11 -- Patient had a normal screening colonoscop y done on 02/04/11 at the [facility] Screening for malignant neoplasm of prostate 345854440 Z12.5 --- PSA level of 0.9 on 06/04/16 [id number] Luis Carlos Merchant MD [facility] [address] [place] [address] 07/01/2017 08:31:47 07/01/2017 09:42:04 Neck pain 45765448 M54.2 -- pt reports that Chiropract or Dr Morrell is helping him (80-90% better)-- xrays from 01/28/17 showed degenerati ve changes Low back pain 127147331 M54.5 -- pt reports that Chiropract or Dr Morrell is helping him (80-90% better)-- xrays from 01/28/17 showed degenerati ve changes Benign ess ential hypertension 7855118 I10 -- last EKG was done 06/04/16-- BP controlled Aneurysm o f thoracic aorta 849817235 I71.2 3.8 cm on 04/30/16; ordered CT scan to be on 10/28/16 but not done; will re-order Hyperlipidemia 71175441 E78.5 Headache 12994923 R51 (chronic) -- [place] at [place] on 04/02/16 did not show any mass Abdominal pain 63352263 R10.9 -- [place] scan report from 04/02/16 was unrevealin g. Allergic rhinitis 638272 04 J30.9 (rare urticaria -- last time was Jun 2016) Impotence of organic origin 345816411 N52.9 Body mass index 25-29 - overweight 916036617 Z68.29 -- Advise weight loss; patient lost 1 # since his last visit-- Patient's BMI today is 28.7 (idealisti c than 20-25); patient is muscular. Asthma 893006804 J45.90 9 (quiescent ) -- last spirometry was done 09/02/16 Viral screening 74384697 4 Z11.59 -- Hepatitis C antibodies nonreactiv e on 09/02/16 Depression screening 171 072350 Z13.89 -- Negative for depression symptoms Active or passive immunization 239620614 Z23 Screening for malignant neoplasm of colon 660149717 Z12.11 -- Patient had a normal screening colonoscop y done on 02/04/11 at the [facility] Screening for malignant neoplasm of prostate 791827514 Z12.5 --- PSA level of 0.9 on 06/04/16 Acute sinusitis 18986177 J01.90 -- f/u w/ me if sx persists in 3 weeks. [id number] Luis Carlos Merchant MD [facility] [address] [place] [address] 10/02/2017 09:32:24 10/02/2017 11:08:59 Acute sinusitis 43905828 J01.90 -- resolved Benign ess ential hypertension 9799824 I10 -- last EKG was done 06/04/16 will repeat EKG today 8-- BP controlled Aneurysm o f thoracic aorta 656802575 I71.2 3.8 cm on 04/30/16; re-ordered CT scan to be done on 10/28/16 but not done; will re-order again and get approval from insurance again. Hyperlipidemia 88818719 E78.5 Headache 62135848 R51 (chronic) -- MRI at [place] on 04/02/16 did not show any mass-- no sx today Abdominal pain 86486525 R10.9 -- [place] scan report from 04/02/16 was unrevealin g.-- pt also has 3 # unintentio nal weight loss Neck pain 30485301 M54.2 -- pt reported that Chiropract or Dr Morrell is helping him (80-90% better)-- xrays from 01/28/17 showed degenerati ve changes Low back pain 603418713 M54.5 -- pt reported that Chiropract or Dr Morrell is helping him (80-90% better)-- xrays from 01/28/17 showed degenerati ve changes Allergic rhinitis 970953 04 J30.9 (rare urticaria -- last time was Jun 2016) Impotence of organic origin 275703863 N52.9 Body mass index 25-29 - overweight 774886991 Z68.29 -- Advise weight loss; patient lost 3 # since his last visit-- Patient's BMI today is 28.7 (idealisti c than 20-25); patient is muscular. Asthma 645958989 J45.90 9 (quiescent ) -- last spirometry was done 09/02/16 Viral screening 38893674 4 Z11.59 -- Hepatitis C antibodies nonreactiv e on 09/02/16 Depression screening 171 823015 Z13.89 -- Negative for depression symptoms Active or passive immunization 678314270 Z23 -- Flu season over Screening for malignant neoplasm of colon 935033242 Z12.11 -- Patient reports he had a normal screening colonoscop y done on 02/04/11 at the [facility]; pt agrees to get colonoscop y report for me. Screening for malignant neoplasm of prostate 235180683 Z12.5 --- PSA level of 0.9 on 06/04/16 Antiplatel et agent therapy 343908500 Z79.02 -- Patient reports he is taking over-the-c ounter aspirin 81 mg one tablet daily Unintentio nal weight loss 380379632 R63.4 [id number] Luis Carlos Merchant MD [facility] [address] [place] [address] 11/09/2017 17:43:20 11/09/2017 19:02:40 Benign essential hypertension 8523207 I10 -- last EKG was done 06/04/16 will repeat EKG today 8-- BP controlled Aneurysm o f thoracic aorta 985033015 I71.2 3.8 cm (on 04/30/16) --> 4.2 cm (on 10/12/17) -- refer pt to Cardiothor acic surgeon Dr Hon Britta Parra. Hyperlipidemia 69988941 E78.5 Headache 33054897 R51 (chronic) -- MRI at [place] on 04/02/16 did not show any mass-- no sx today Unintentio nal weight loss 275827915 R63.4 Neck pain 53285676 M54.2 -- pt reported that Chiropract or Dr Morrell is helping him (80-90% better)-- xrays from 01/28/17 showed degenerati ve changes-- no sx today 11/09/17 Low back pain 487506234 M54.5 -- pt reported that Chiropract or Dr Morrell is helping him (80-90% better)-- xrays from 01/28/17 showed degenerati ve changes-- no sx today 11/09/17 Allergic rhinitis 355444 04 J30.9 (rare urticaria -- last time was Jun 2016) Impotence of organic origin 650835607 N52.9 Body mass index 25-29 - overweight 518205451 Z68.29 -- Advise weight loss; patient lost 3 # since his last visit-- Patient's BMI today is 28.7 (idealisti c than 20-25); patient is muscular. Asthma 018221529 J45.90 9 (quiescent ) -- last spirometry was done 09/02/16 Depression screening 171 093259 Z13.89 -- Negative for depression symptoms Antiplatel et agent therapy 518358881 Z79.02 -- Patient reports he is taking over-the-c ounter aspirin 81 mg one tablet daily Viral screening 96834581 4 Z11.59 -- Hepatitis C antibodies nonreactiv e on 09/02/16 Active or passive immunization 908227382 Z23 -- Flu season over Screening for malignant neoplasm of colon 613130711 Z12.11 -- Stool globin negative for occult blood on 10/20/17-- Patient reports he had a normal screening colonoscop y done on 02/04/11 at the [facility]; pt agrees to get colonoscop y report for me. Screening for malignant neoplasm of prostate 482320400 Z12.5 PSA level of 0.9 on 06/04/16 --> to PSA level of 1.2 on 10/02/17 Nonspecifi c mesenteric adenitis 697367919 I88.0 w/ abdominal discomfort -- on CT of abd/pelvis on 10/12/17 Irritable bowel syndrome with diarrhea 214037401 K58.0 (has Episodic abdominal pain/disco mfort, bloating, some constipati on, and mostly diarrhea) [id number] Luis Carlos Merchant MD [facility] [employer] [address] [place] [address] 09/06/2018 16:33:32 09/06/2018 18:25:43 Adult health examination 828057321 Z00.00 Nonspecifi c mesenteric adenitis 882370997 I88.0 w/ abdominal discomfort -- on CT of abd/pelvis on 10/12/17 Irritable bowel syndrome with diarrhea 755773655 K58.0 (has Episodic abdominal pain/disco mfort, bloating, some constipati on, and mostly diarrhea) -- responded well to Xifaxan Benign ess ential hypertension 3498970 I10 -- last EKG was done on 10/02/17-- BP controlled Aneurysm o f thoracic aorta 085596213 I71.2 3.8 cm (on 04/30/16) --> 4.2 cm (on 10/12/17) -- recheck CTA of chest on 10/11/18 Hyperlipidemia 12666937 E78.5 Unintentio nal weight loss 182319934 R63.4 -- pt lost 2 # since his last visit-- CXR on 10/12/17 Allergic rhinitis 318344 04 J30.9 (rare urticaria -- last time was Jun 2016) Impotence of organic origin 729603288 N52.9 Body mass index 25-29 - overweight 746891165 Z68.29 -- Advise weight loss; patient lost 3 # since his last visit-- Patient's BMI today is 28.7 (idealisti c than 20-25); patient is muscular. Asthma 485290460 J45.90 9 (quiescent ) -- last spirometry was done on 11/09/17 Depression screening 171 005670 Z13.89 -- Negative for depression symptoms Antiplatel et agent therapy 387464922 Z79.02 -- Patient reports he is taking over-the-c ounter aspirin 81 mg one tablet daily Viral screening 36105795 4 Z11.59 -- Hepatitis C antibodies nonreactiv e on 09/02/16 Active or passive immunization 673877250 Z23 -- Flu season over Screening for malignant neoplasm of colon 249373833 Z12.11 -- Stool globin negative for occult blood on 10/20/17-- Patient reports he had a normal screening colonoscop y done on 02/04/11 at the [facility]; pt agrees to get colonoscop y report for me. Screening for malignant neoplasm of prostate 840126451 Z12.5 PSA level of 0.9 on 06/04/16 --> to PSA level of 1.2 on 10/02/17 Gastroesop hageal reflux disease without esophagitis 788229349 K21.9 -- well controlled w/ Pantoprazo le from [place] [id number] Luis Carlos Merchant MD [facility] [address] [place] [address] 03/14/2019 09:10:40 03/14/2019 10:18:27 Nonspecific mesenteric adenitis 154073941 I88.0 -- CT of abd/pelvis showed resolution of adenitis but enlarged prostate Benign ess ential hypertension 5772615 I10 -- BP controlled Aneurysm o f thoracic aorta 828897257 I71.2 3.8 cm (on 04/30/16) --> 4.2 cm (on 10/12/17) -- 3.9 ( on 10/25/2018 ) Hyperlipidemia 32779577 E78.5 LDL was 84 on 09/06/2018 Unintentio nal weight loss 482341600 R63.4 -- pt lost 2 # since his last visit-- CXR on 10/12/17 , CT abd/Pelvis was done 09/28/2018 -- nl CBC, TFT on 09/06/2018 Allergic rhinitis 816215 04 J30.9 (rare urticaria -- last time was Jun 2016) Impotence of organic origin 366799219 N52.9 Body mass index 25-29 - overweight 711168211 Z68.29 -- Advise weight loss; patient lost 3 # since his last visit-- Patient's BMI today is 28.7 (idealisti c than 20-25); patient is muscular. Gastroesop hageal reflux disease without esophagitis 768907614 K21.9 -- well controlled w/ Pantoprazo le from [place] Asthma 053957468 J45.90 9 (quiescent ) -- last spirometry was done on 11/09/17 Depression screening 171 098502 Z13.89 -- Negative for depression symptoms Active or passive immunization 979086332 Z23 Screening for malignant neoplasm of colon 883871840 Z12.11 -- Stool globin negative for occult blood on 10/20/17-- Patient reports he had a normal screening colonoscop y done on 02/04/11 at the [facility];p t agrees to get colonoscop y report for me. Screening for malignant neoplasm of prostate 969835759 Z12.5 PSA level of 0.9 on 06/04/16 --> to PSA level of 1.2 on 10/02/17-- check PSA level today 03/14/19 Hepatitis C screening 41 3333682 Z11.59 -- Hepatitis C antibodies nonreactiv e on 09/02/16 Irritable bowel syndrome with diarrhea 500008362 K58.0 (has Episodic abdominal pain/disco mfort, bloating, some constipati on, and mostly diarrhea) -- responded well to Xifaxan. [id number] Luis Carlos Merchant MD [facility] [address] [place] [address] 09/16/2019 08:43:25 09/16/2019 10:04:19 Adult health examination 118247424 Z00.00 Benign ess ential hypertension 8410411 I10 -- BP controlled -- last EKG done on 03/14/19 Aneurysm o f thoracic aorta 629855641 I71.2 3.8 cm (on 04/30/16) --> 4.2 cm (on 10/12/17) -- 3.9 ( on 10/25/2018 ) Hyperlipidemia 82894898 E78.5 LDL was 84 on 09/06/2018 Allergic rhinitis 903002 04 J30.9 (rare urticaria -- last time was Jun 2016) Impotence of organic origin 445807608 N52.9 Body mass index 25-29 - overweight 651741315 Z68.27 -- Advise weight loss; patient GAINED 7 # since his last visit-- Patient's BMI today is 27.8 (idealisti c than 20-25); patient is muscular. Gastroesop hageal reflux disease without esophagitis 850843879 K21.9 -- well controlled w/ Omeprazole from [place] Asthma 508717106 J45.90 9 (quiescent ) -- last spirometry was done on 03/14/19 Irritable bowel syndrome with diarrhea 690986393 K58.0 (has Episodic abdominal pain/disco mfort, bloating, some constipati on, and mostly diarrhea) -- responded well to Xifaxan. No recurrence of sx. Depression screening 171 161141 Z13.89 -- Negative for depression symptoms Hepatitis C screening 41 7092073 Z11.59 -- Hepatitis C antibodies nonreactiv e on 09/02/16 Active or passive immunization 679413746 Z23 -- pt reported that he had received Flu shot at [place] around May 2019 Screening for malignant neoplasm of colon 796337478 Z12.11 -- Stool globin negative for occult blood on 10/20/17-- Patient reports he had a normal screening colonoscop y done on 02/04/11 at the [facility];- - pt agrees to get colonoscop y report for me. Screening for malignant neoplasm of prostate 787362491 Z12.5 PSA level of 1.6 on 03/14/19 [id number] Luis Carlos Merchant MD [facility] [address] [place] [address] 03/23/2020 08:37:36 03/26/2020 16:14:11 Essential hypertension 34733462 I10 -- BP controlled -- last EKG done 03/23/20 Hyperlipidemia 92759568 E78.5 LDL was 84 on 09/06/2018 Migraine 10257686 G43.90 9 (without aura) -- went off Topiramate due to unintentio nal weight loss-- now on sumatripta n from [place] Body mass index 25-29 - overweight 101447820 Z68.29 -- Advise weight loss; patient gained 13 # since his last visit (went off Topiramate )-- Patient's BMI today is 29.6 (idealisti c than 20-25); patient is muscular. Primary er ectile dysfunction 928569927 N52.9 Asthma 772713602 J45.90 9 (quiescent ) -- last spirometry was done on 03/14/19 [id number] Luis Carols Merchant MD [facility], [facility] [address] [place] [address] 09/24/2020 09:02:05 09/24/2020 09:32:01 Adult health examination 365757084 Z00.00 Essential hypertension 80777427 I10 -- BP controlled -- last EKG done 03/23/20 Hyperlipidemia 65707218 E78.5 LDL was 84 on 09/06/2018 Asthma 213904325 J45.90 9 (quiescent ) -- spirometry done 03/23/20 Migraine 68145157 G43.90 9 (without aura) -- went off Topiramate due to unintentio nal weight loss -- now on sumatripta n from [place] Primary er ectile dysfunction 743371739 N52.9 Aneurysm o f thoracic aorta [id number] I71.2 3.8 cm (on 04/30/16) --> 4.2 cm (on 10/12/17) -- 3.9 ( on 10/25/2018 ) --> 3.9 cm (09/23/19) Allergic rhinitis 311012 04 J30.9 (rare urticaria -- last time was Jun 2016) Impotence of organic origin 775160719 N52.9 Gastroesop hageal reflux disease without esophagitis 095082761 K21.9 -- well controlled w/ Omeprazole from [place] Irritable bowel syndrome with diarrhea 998464262 K58.0 (has Episodic abdominal pain/disco mfort, bloating, some constipati on, and mostly diarrhea) -- responded well to Xifaxan. No recurrence of sx. Depression screening 171 628587 Z13.89 -- Negative for depression symptoms Hepatitis C screening 41 3900470 Z11.59 -- Hepatitis C antibodies nonreactiv e on 09/02/16 Active or passive immunization 300804923 Z23 -- pt reported that he had received 2 Shing[place] shots at [place] and [place] get report for [place] Screening for malignant neoplasm of colon 417274533 Z12.11 -- Gastroente rologist Dr Kishore Pelletier recommende d repeating colonoscop y 10 years from 03/14/19 Screening for malignant neoplasm of prostate 173089417 Z12.5 PSA level of 1.6 (03/14/19) Body mass index 30+ - obesity 088876021 Z68.39 -- Advise weight loss; patient gained 3 # since his last visit (went off Topiramate ) -- Patient's BMI today is 30 (idealisti c than 20-25); patient is muscular. [id number] Luis Carlos Merchant MD [facility] [address] [place] [address] 03/28/2021 09:12:16 03/28/2021 10:22:51 Hyperlipidemia 37692194 E78.5 LDL was 84 on 09/06/2018 Essential hypertension 30821828 I10 -- BP controlled -- last EKG done 03/23/20 Primary er ectile dysfunction 744481324 N52.9 -- saw Urologist Dr Abbi Partida Asthma 833841646 J45.90 9 (quiescent ) -- spirometry done 03/23/20 Migraine 67225798 G43.90 9 (without aura) -- went off Topiramate due to unintentio nal weight loss -- now on sumatripta n from [place] Body mass index 30+ - obesity 122446000 Z68.39 -- Advise weight loss; no weight change since his last visit (went off Topiramate ) -- Patient's BMI today is 30 (idealisti c than 20-25); patient is muscular. Aneurysm o f thoracic aorta 074719696 I71.2 3.8 cm (on 04/30/16) --> 4.2 cm (on 10/12/17) -- 3.9 ( on 10/25/2018 ) --> 3.9 cm (09/23/19) Allergic rhinitis 637043 04 J30.9 (rare urticaria -- last time was Jun 2016; then in October 2020, his itching returned) Gastroesop hageal reflux disease without esophagitis 295816638 K21.9 -- well controlled w/ Omeprazole from [place] Irritable bowel syndrome with diarrhea 206727490 K58.0 (has Episodic abdominal pain/disco mfort, bloating, some constipati on, and mostly diarrhea) -- responded well to Xifaxan. No recurrence of sx. Depression screening 171 491444 Z13.89 -- Negative for depression symptoms Hepatitis C screening 41 1413658 Z11.59 -- Hepatitis C antibodies nonreactiv e on 09/02/16 Active or passive immunization 014194646 Z23 -- pt reported that he had received 2 [place] shots at [place] and [place] get [place] Screening for malignant neoplasm of colon 626741426 Z12.11 -- Gastroente rologist Dr Kishore Pelletier recommende d repeating colonoscop y 10 years from 03/14/19 Screening for malignant neoplasm of prostate 636382756 Z12.5 PSA level of 1.6 (03/14/19) --> 2.6 (09/24/20) [id number] Luis Carlos Merchant MD [facility], [facility] [address] [place] [address] 09/26/2021 09:15:48 09/26/2021 11:01:38 Allergic rhinitis 53384283 J30.9 (rare urticaria -- last time was Jun 2016; then in October 2020, his itching returned) Essential hypertension 14837824 I10 -- BP controlled -- EKG done 09/26/21 Hyperlipidemia 17682281 E78.5 Asthma 565432329 J45.90 9 (quiescent ) -- spirometry done Migraine 75272570 G43.90 9 (without aura) -- went off Topiramate due to unintentio nal weight loss -- now on sumatripta n from [place] Body mass index 30+ - obesity 947589537 Z68.30 -- Advise weight loss; pt gained 2 # since his last visit (went off Topiramate ) -- Patient's BMI today is 30.3 (idealisti c than 20-25); patient is muscular. Aneurysm o f thoracic aorta 175030398 I71.2 3.8 cm (on 04/30/16) --> 4.2 cm (on 10/12/17) -- 3.9 ( on 10/25/2018 ) --> 3.9 cm (09/23/19) Gastroesop hageal reflux disease without esophagitis 799828725 K21.9 -- well controlled w/ Omeprazole from [place] Irritable bowel syndrome with diarrhea 044223956 K58.0 (has Episodic abdominal pain/disco mfort, bloating, some constipati on, and mostly diarrhea) -- responded well to Xifaxan. No recurrence of sx. Primary er ectile dysfunction 048330143 N52.9 -- saw Urologist Dr Abbi Partida Depression screening 171 101024 Z13.89 -- Negative for depression symptoms Hepatitis C screening 41 3257442 Z11.59 -- Hepatitis C antibodies nonreactiv e on 09/02/16 Active or passive immunization 218064996 Z23 -- pt reported that he had received 2 [place] at [place] and [place] Screening for malignant neoplasm of colon 910944143 Z12.11 -- Gastroente rologist Dr Kishore Pelletier recommende d repeating colonoscop y 10 years from 03/14/19 Screening for malignant neoplasm of prostate 628219861 Z12.5 PSA level of 1.6 (03/14/19) --> 2.6 (09/24/20) Family his tory of diabetes mellitus 722478655 Z83.3 Excessive sweating 34995 005 R61 -- ? hypoglycem ia [id number] Luis Carlos Merchant MD [facility] [address] [place] [address] 01/02/2022 11:46:27 01/02/2022 13:23:48 Adult health examination 721477041 Z00.00 Body mass index 30+ - obesity 366908078 Z68.30 -- Advise weight loss; pt lost 0.5 # since his last visit (went off Topiramate ) -- Patient's BMI today is 30.3 (idealisti c than 20-25); patient is muscular. Tinea cruris 528623103 B 35.6 Cellulitis of skin 63883 1002 L03.90 (hien-rect al, buttocks & scrotum) [id number] Luis Carlos Merchant MD [facility] [employer] [facility] [address] [place] [address] 04/04/2022 09:23:34 04/04/2022 10:57:10 Cellulitis of skin 902036335 L03.90 (hien-rect al, buttocks & scrotum) -- resolved Tinea cruris 433087176 B 35.6 -- resolved but will issue Rx refill Body mass index 30+ - obesity 754419974 Z68.30 -- Advise weight loss; pt gained 2.5 # since his last visit (went off Topiramate ) -- Patient's BMI today is 30.5 (idealisti c than 20-25); patient is muscular. [id number] Luis Carlos Merchant MD [facility] [employer] [facility] [address] [facility] [address] [place] [address] 08/22/2022 10:31:16 08/22/2022 12:28:41 Flank pain 067610009 R10.9 (bilateral lower flank) Nausea 757172190 R11.0 Abdominal pain 62595387 R10.9 (generaliz ed)-- no weight change since his last visit [id number] Luis Carlos Merchant MD [facility] [facility] [address] [place] [address] 10/03/2022 09:26:24 10/03/2022 11:01:25 Abdominal pain 98897603 R10.9 (generaliz ed) -- pt still symptomati c Flank pain 617756360 R10 .9 (bilateral lower flank) -- still symptomati c HIV screening 632885100 Z11.4 Asthma 256568309 J45.90 9 (quiescent ) -- spirometry done Hyperlipidemia 77529925 E78.5 COVID-19 236755396 U07.1 -- dx'd w/ covid around 09/08/22 [id number] Luis Carlos Merchant MD [facility] [address] [place] [address] 04/17/2023 08:34:52 04/17/2023 09:32:25 Axillary lymphadenopathy 159136849 R59.0 -- pt reported he had Flu shot a few days before the chest CT (that demonstrat ed the LN) Mesenteric lymphadenopathy 053928262 I88.[address] -- no sx [id number] Luis Carlos Merchant MD [employer] [address] [place] [address] 08/18/2023 08:32:21 08/18/2023 09:54:30 Adult health examination 648473284 Z00.00 Axillary lymphadenopathy 871007009 R59.0 -- pt reported he had Flu shot a few days before the chest CT (that demonstrat ed the LN)-- u/s on 05/29/[address] that is not enlarged Mesenteric lymphadenopathy 219125909 I88.0 (on both Abd/pelvis CT on 08/22/22 and 04/02/23) -- Tx'd w/ both Augmentin and Metronidaz ole-- just had EGD & [place] done [place] on 07/27/23-- [place] (EGD) 3 years from 07/27/23 & repeat colonoscop y 7 years from 07/27/23 Hyperlipidemia 44859045 E78.5 Asthma 228174190 J45.90 9 (quiescent ) -- spirometry done HIV screening 555624495 Z11.4 -- tested negative for HIV on 10/04/23 COVID-19 119261189 U07.1 -- dx'd w/ covid around 09/08/22 Benign pro static hyperplasia without outflow obstruction 042107213 N40.0 (evident on CT of abd/pelvis on 08/22/22) -- check PSA Body mass index 30+ - obesity 218004795 Z68.39 -- Advise weight loss; pt lost 2 since his last visit (off Topiramate ) -- Patient's BMI today is 30.4 (idealisti c than 20-25); patient is muscular. Hepatitis C screening 41 7140623 Z11.59 -- Hepatitis C antibodies nonreactiv e on 09/02/16 Active or passive immunization 872972529 Z23 -- pt reported that he had received 2 [place] shots at [place] and he will get report for me Screening for malignant neoplasm of colon 349032995 Z12.11 -- Gastroente rologist Dr Kishore Pelletier recommende d repeating colonoscop y 10 years from 03/14/19 -- just had EGD & Colonoscop [place] done at [place] on 07/27/23-- pt instructed by [place] and me to repeat Endoscopy (EGD) 3 years from 07/27/23 & repeat colonoscop y 7 years from 07/27/23 Screening for malignant neoplasm of prostate 814348990 Z12.5 PSA level of 1.6 (03/14/19) --> 2.6 (09/24/20) Abdominal bloating 54586 9008 R14.0 (with nausea) -- counseled on avoiding both gluten and dairy x 1 week and then resume to see any response-- awaiting endoscopy/ colonoscop y pathology report (? Celiac dz) Eczema 83503193 L30.9 [id number] Luis Carlos Merchant MD [facility], [facility] [address] [facility] [address] [place] [address] 11/17/2023 09:23:36 11/17/2023 11:12:22 Abdominal bloating 948076799 R14.0 (with nausea) -- counseled on avoiding both gluten and dairy x 1 week and then resume to see any response-- awaiting endoscopy/ colonoscop y pathology report (? Celiac dz)-- pt has not got started seriously w/ the gluten free diet yet. Eczema 78733904 L30.9 -- respond well to Triamcinol one ointment Mesenteric lymphadenopathy 495291370 I88.0 (on both Abd/pelvis CT on 08/22/22 and 04/02/23) -- Tx'd w/ both Augmentin and Metronidaz ole-- just had EGD & [place] done [place] on 07/27/23-- [place] instructed by [place] and [place] to [place] Endoscopy (EGD) 3 years from 07/27/23 & repeat colonoscop y 7 years from 07/27/23 Hyperlipidemia 24597139 E78.5 Benign pro static hyperplasia without outflow obstruction 046443675 N40.0 (evident on CT of abd/pelvis on 08/22/22) -- PSA improved from 2.8 --> 2.1 (08/18/23) Asthma 921317166 J45.90 9 (quiescent ) -- spirometry done Body mass index 30+ - obesity 271690412 Z68.39 -- Advise weight loss; pt gained 1 since his last visit (off Topiramate ) -- Patient's BMI today is 30.5 (idealisti c than 20-25); patient is muscular. Hepatitis C screening 41 7105375 Z11.59 -- Hepatitis C antibodies nonreactiv e on 09/02/16 HIV screening 076806182 Z11.4 -- tested negative for HIV on 10/04/23 Active or passive immunization 537658262 Z23 -- pt reported that he had received 2 [place] shots at [place] and he will get report for me Screening for malignant neoplasm of colon 932547703 Z12.11 -- Gastroente rologist Dr Kishore Pelletier recommende d repeating colonoscop y 10 years from 03/14/19 -- just had EGD & [place]osc[place] done at [place] on 07/27/23-- [place] instructed by [place] and [place] to [place] Endoscopy (EGD) 3 years from 07/27/23 & repeat colonoscop y 7 years from 07/27/23 Screening for malignant neoplasm of prostate 069710872 Z12.5 PSA level of 1.6 (03/14/19) --> 2.6 (09/24/20) -- 2.1 (08/18/23) [id number] Luis Carlos Merchant MD [facility] [address] [place] [address] 02/19/2024 09:24:03 02/19/2024 11:18:07 Abdominal bloating 141857545 R14.0 (with nausea) -- counseled on avoiding both gluten and dairy x 1 week and then resume to see any response-- awaiting endoscopy/ colonoscop y pathology report (? Celiac dz)-- pt now know that dairy really upsets his stomach Eczema 94755386 L30.9 -- respond well to Triamcinol one ointment Mesenteric lymphadenopathy 300782912 I88.0 (on both Abd/pelvis CT on 08/22/22 and 04/02/23) -- Tx'd w/ both Augmentin and Metronidaz ole-- just had E[place] done [place] on 07/27/23-- pt instructed by [place] and me to repeat Endoscopy (EGD) 3 years from 07/27/23 & repeat colonoscop y 7 years from 07/27/23 Hyperlipidemia 06906309 E78.5 Benign pro static hyperplasia without outflow obstruction 170376136 N40.0 (evident on CT of abd/pelvis on 08/22/22) -- PSA improved from 2.8 --> 2.1 (08/18/23) Asthma 708377566 J45.90 9 (quiescent ) -- spirometry done Body mass index 30+ - obesity 865406860 Z68.39 -- Advise weight loss; pt gained 1 since his last visit (off Topiramate ) -- Patient's BMI today is 30.5 (idealisti c than 20-25); patient is muscular. Hepatitis C screening 41 7897543 Z11.59 -- Hepatitis C antibodies nonreactiv e on 09/02/16 HIV screening 138017888 Z11.4 -- tested negative for HIV on 10/04/23 Active or passive immunization 664713214 Z23 -- pt reported that he had received 2 [place] shots at [place] and he [place] get report for [place] Screening for malignant neoplasm of colon 296199659 Z12.11 -- Gastroente rologist Dr Kishore Pelletier recommende d repeating colonoscop y 10 years from 03/14/19 -- just had EGD & [place] done [place] on 07/27/23-- pt instructed by [place] and me to repeat Endoscopy (EGD) 3 years from 07/27/23 & repeat colonoscop y 7 years from 07/27/23 Screening for malignant neoplasm of prostate 666343296 Z12.5 PSA level of 1.6 (03/14/19) --> 2.6 (09/24/20) -- 2.1 (08/18/23) Serum crea tinine above reference range 476740267 R79.89 -- informed pt to avoid any otc pain meds: like Ibuprofen (Motrin /Advil), & Naproxen (Aleve) or other pain meds by other physician/ health providers. -- informed patient to increase and maintain fluids to over 64 fluid ounces daily. Hyperglycemia 71784627 R 73.9 -- check lab on 12/17/23 Hypoglycemia 777830698 E 16.2 (nauseous, jittery & sweaty) -- sx markedly improved w/ eating Excessive sweating 32198 005 R61 -- ? hypoglycem ia [id number] Luis Carlos Merchant MD [facility], [facility] [address] [place] [address] 06/08/2024 09:40:05 06/08/2024 11:26:56 Excessive sweating 93243202 R61 -- ? hypoglycem ia-- frequency markedly decreased Serum crea tinine above reference range 690087751 R79.89 -- informed pt to avoid any otc pain meds: like Ibuprofen (Motrin /Advil), & Naproxen (Aleve) or other pain meds by other physician/ health providers. -- informed patient to increase and maintain fluids to over 64 fluid ounces daily. Hyperglycemia 13257187 R 73.9 -- check lab on 12/17/23 Hypoglycemia 821300409 E 16.2 (nauseous, jittery & sweaty) -- sx markedly improved w/ eating Abdominal bloating 40010 9008 R14.0 (with nausea) -- counseled on avoiding both gluten and dairy x 1 week and then resume to see any response-- awaiting endoscopy/ colonoscop y pathology report (? Celiac dz)-- pt now know that dairy really upsets his stomach Eczema 53643560 L30.9 -- responds well to Triamcinol one ointment Mesenteric lymphadenopathy 359038175 I88.0 (on both Abd/pelvis CT on 08/22/22 and 04/02/23) -- Tx'd w/ both Augmentin and Metronidaz ole and lymphadeno shelbie resolved-- just had [place]/27/23-- [place] by [place] (EGD) 3 years from 07/27/23 & repeat colonoscop y 7 years from 07/27/23 Hyperlipidemia 65845028 E78.5 Benign pro static hyperplasia without outflow obstruction 140345240 N40.0 (evident on CT of abd/pelvis on 08/22/22) -- PSA improved from 2.8 --> 2.1 (08/18/23) Asthma 525579911 J45.90 9 (quiescent ) -- spirometry done Body mass index 30+ - obesity 920630338 Z68.31 -- Advise weight loss; pt gained 1 since his last visit (off Topiramate ) -- Patient's BMI today is 31.7 (idealisti c than 20-25); patient is muscular. Hepatitis C screening 41 7138607 Z11.59 -- Hepatitis C antibodies nonreactiv e on 09/02/16 HIV screening 147652393 Z11.4 -- tested negative for HIV on 10/04/23 Active or passive immunization 510863335 Z23 -- pt reported that he had received 2 [place] shots at [place] and he will get report for me-- pt also reported he had a Flu shot at [place] (either in Feb or Mar 2024) Screening for malignant neoplasm of colon 907960295 Z12.11 -- Gastroente rologist Dr Kishore Pelletier recommende d repeating colonoscop y 10 years from 03/14/19 -- just had EGD & Colonosc[place] done at [place] on 07/27/23-- [place] by [place] and [place] (EGD) 3 years from 07/27/23 & repeat colonoscop y 7 years from 07/27/23 Screening for malignant neoplasm of prostate 106645504 Z12.5 PSA level of 1.6 (03/14/19) --> 2.6 (09/24/20) -- 2.1 (08/18/23) Essential hypertension 76020938 I10 -- BP controlled -- EKG done 02/19/24 Health Concerns Section Related Observation LastModified by Organization Detai ls LastModified Time None Recorded Concern Status LastModified by Organization Details LastModified Time None Recorded Advance Directives Directive N: Payers Encounter Date Sequence Insurance Name Policy Number Policy Gray Covered Member ID Gray Member ID Guarantor Name 04/17/2023 1 [employer] [facility] [employer] - [employer] () [facility] [id number] Bryant Mccarthy 08/18/2023 1 [employer] - [employer] () Bryant Lopezder [id number] Bryant Lopezder 11/17/2023 1 [employer] - [employer] - [employer] () Bryant Serena [id number] Bryant Lopezder 02/19/2024 1 [employer] - [employer] - [employer] () Bryant Lopezder [id number] Bryant Lopezder 06/08/2024 1 [employer] - [employer] - [employer] () Bryant Lopezder [id number] Bryant Mccarthy Notes Date Note Type Note Provider Name and Address Organization Details Recorded Time 04/17/2023 text/html Pt comes in for f/u of left axillary LN and mesenteric LN. Pt is completely asymptomatic. He has no f/c, n/v, diarrhea (except once a few months back), constipation, abdominal discomfort or pain. Pt feels energetic and has no night sweats, LAZARO or any fatigue. Luis Carlos Merchant MD [address] [facility] [address], [place], [address], [facility] 04/17/2023 09:28:36 08/18/2023 text/html Pt comes in for bloating and nausea. Pt is also due for annual PE. Pt feels well and has no c/o. Pt has no new sx and no increasing sx. Patient denies any jaw or neck discomfort, left arm pain/left arm discomfort, chest discomfort/pain, diaphoresis, breathing symptoms/chest tightness, indigestion sx, n/v, any angina equivalent symptoms, etc. Luis Carlos Merchant MD [address], [place], [address], [facility] 08/18/2023 09:53:36 11/17/2023 text/html Pt comes in for f/u of abdominal bloating, eczema (gone), HLD, and BPH. Pt feels well and has no c/o. Pt has no new sx and no increasing sx. Patient denies any jaw or neck discomfort, left arm pain/left arm discomfort, chest discomfort/pain, diaphoresis, breathing symptoms/chest tightness, indigestion sx, n/v, any angina equivalent symptoms, etc. Luis Carlos Merchant MD [address] [facility] [address], [place], [address], [facility] 11/17/2023 11:01:58 02/19/2024 text/html Pt comes in for excessive sweating, ^Cr, Hyperglycemia, and abd bloating. Pt feels well and has no c/o. Pt has no new sx and no increasing sx. Patient denies any jaw or neck discomfort, left arm pain/left arm discomfort, chest discomfort/pain, diaphoresis, breathing symptoms/chest tightness, indigestion sx, n/v, any angina equivalent symptoms, etc. Luis Carlos Merchant MD [address] [facility] [address], [place], [address], [facility] 02/19/2024 11:06:01 06/08/2024 text/html Pt comes in for f/u of HTN, HLD, sweating (no recurrence recently), Asthma, BPH and weight monitoring. Pt feels well and has no c/o. Pt has no new sx and no increasing sx. Patient denies any jaw or neck discomfort, left arm pain/left arm discomfort, chest discomfort/pain, diaphoresis, breathing symptoms/chest tightness, indigestion sx, n/v, any angina equivalent symptoms, etc. Luis Carlos Merchant MD [address] [facility] [address], [place], [address], [facility] 06/08/2024 11:24:01
[2024-11-24 16:54] VITALS: BP 143/78; PULSE 55; RESP 20; TEMP 35.8; O2SAT 99
--- NOTE | 2024-11-24 17:48 | ED_ITS ---
HPI - General Adult General Chief complaint: Unspecified <Rubi Díaz PA-C - Last Filed: 11/25/24 11:10> Stated complaint: cold sweats, shortness of breath <Rubi Díaz PA-C - Last Filed: 11/25/24 11:10> Time Seen by Provider: 11/24/24 17:48 <Rubi Díaz PA-C - Last Filed: 11/25/24 11:10> Focused HPI: This is a 64 year old male that presents to the ER for an episode tonight. Reports he broke out in a sweat, was nervous, shaking, headache. This lasted for about 10 minutes. He was at work when this happened. He reports a headache currently. Reports tingling on the left side of his face. GENERAL: Well-appearing, well-nourished, and in no acute distress. HEAD: Normocephalic, atraumatic. CHEST: Clear to auscultation. ?No respiratory distress. HEART: Regular rate and rhythm.? NEURO: ?Alert and oriented x3. Patient screened in triage and initial orders placed.? ?Additional care and disposition to be based upon?diagnostic testing and treatment. <Rubi Díaz PA-C - Last Filed: 11/25/24 11:10> History of Present Illness HPI narrative: Agree with the HPI above. Patient states he has a history of migraine headaches and that this occurs to him semi regularly and his last episode was 1 month ago. He takes medications for his migraines but he is not sure with names are at this time. Did not take any his medications today. He is presently only complaint of headache and has rather symptoms have resolved. <Gregory Lynn MD - Last Filed: 11/24/24 22:35> Related Data Home medications: Home Medications ?Medication ?Instructions ?Recorded ?Confirmed ?Last Taken ?Type albuterol sulfate 90 mcg/actuation 90 mcg inhalation DIRECTED 12/09/21 01/25/22 Unknown History aerosol inhaler atorvastatin 20 mg tablet 20 mg DIRECTED 12/09/21 01/25/22 Unknown History losartan 25 mg tablet 25 mg DIRECTED 12/09/21 01/25/22 Unknown History sildenafil 50 mg tablet 50 mg DIRECTED 12/09/21 01/25/22 Unknown History <Rubi Díaz PA-C - Last Filed: 11/25/24 11:10> Allergies/adverse reactions: Allergies Allergy/AdvReac Type Severity Reaction Status Date / Time No Known Allergies Allergy Verified 01/26/22 13:19 <Rubi Díaz PA-C - Last Filed: 11/25/24 11:10> Review of Systems 2 Review of Systems: As reviewed above in HPI <Gregory Lynn MD - Last Filed: 11/24/24 22:35> [facility] Past Medical History Medical History: Medical History History of hyperlipidemia History of hypertension <Rubi Díaz PA-C - Last Filed: 11/25/24 11:10> Surgical History Surgical History: Surgical History H/O repair of rotator cuff bilateral H/O left knee surgery <Rubi Díaz PA-C - Last Filed: 11/25/24 11:10> Social History Social History: Social History Smoking status: Never smoker Alcohol intake: unknown Substance use: never Living arrangements: with family Gender identity (if verbalized by the patient): Male <Rubi Díaz PA-C - Last Filed: 11/25/24 11:10> Exam 2 Narrative: GENERAL: [Well-appearing, well-nourished, and in no acute distress.] HEAD: [Normocephalic, atraumatic.] EYES: [PERRLA and EOMI.] ENT: Nares clear, no rhinorrhea or epistaxis. Mucous membranes moist. NECK: Supple. CHEST: [Clear to auscultation. No respiratory distress.] HEART: [Regular rate and rhythm]. No murmur heard. [Normal peripheral pulses.] ABDOMEN: [Soft, nondistended], [nontender], [No rigidity or guarding] EXTREMITIES: Normal range of motion. [No edema.] SKIN: Warm, dry, no rash. NEURO: [No focal deficits]. Alert and oriented [x3.] PSYCH: [Normal mood and affect.] <Gregory Lynn MD - Last Filed: 11/24/24 22:35> Course Vital Signs Vital signs: Vital Signs Temperature 96.5 F L 11/24/24 16:54 Pulse Rate 55 L 11/24/24 16:54 Respiratory Rate 20 11/24/24 16:54 Blood Pressure 143/78 H 11/24/24 16:54 Pulse Oximetry 99 11/24/24 16:54 Oxygen Delivery Room Air 11/24/24 16:54 Temperature 99.1 F 11/24/24 20:11 Pulse Rate 64 11/24/24 23:00 Respiratory Rate 16 11/24/24 23:00 Blood Pressure 125/68 11/24/24 23:00 Pulse Oximetry 100 11/24/24 23:00 Oxygen Delivery Room Air 11/24/24 16:54 <Rubi Díaz PA-C - Last Filed: 11/25/24 11:10> Vital Signs Temperature 96.5 F L 11/24/24 16:54 Pulse Rate 55 L 11/24/24 16:54 Respiratory Rate 20 11/24/24 16:54 Blood Pressure 143/78 H 11/24/24 16:54 Pulse Oximetry 99 11/24/24 16:54 Oxygen Delivery Room Air 11/24/24 16:54 Temperature 99.1 F 11/24/24 20:11 Pulse Rate 64 11/24/24 23:00 Respiratory Rate 16 11/24/24 23:00 Blood Pressure 125/68 11/24/24 23:00 Pulse Oximetry 100 11/24/24 23:00 Oxygen Delivery Room Air 11/24/24 16:54 <Gregory Lynn MD - Last Filed: 11/24/24 22:35> Medical Decision Making MDM Narrative Medical decision making narrative: 64-year-old male with history of migraines presenting to the emergency room with chief complaint of a headache, sudden-onset shakiness cold sweats and bilateral visual deficits that have resolved. He states that he has a history of migraines and takes medications but did not take any them today. He states that these episodes happen frequently at least once a month his last episode was last month. No trauma or injury. No history of surgical interventions or brain injury. He is presently only symptomatic with a headache and his other symptoms have since resolved. No history of strokes or TIA. Symptoms could be be related to migraines including a migraine with aura versus intracranial pathology such as a brain bleed, stroke or mass, less likely electrolyte deficiency or abnormality, dehydration or infectious process. CT of the head was obtained, chest x-ray, laboratory studies with CBC, CMP and magnesium a ordered. He was given p.o. Toradol Compazine and diphenhydramine and re- evaluated. Patient's vital signs are stable. He is afebrile and feeling better after treatments. Patient's workup was also reassuring without any leukocytosis or anemia. Normal platelet count. Electrolytes are unremarkable. Normal renal function, normal LFTs, mildly elevated glucose. Head CT without any findings, chest x-ray with any acute cardiopulmonary pathology. Given patient's symptomatic improvement with treatment of his suspected migraine he was safe for discharge home with PCP follow-up and given return precautions which he verbalized understanding. < Gregory Lynn MD - Last Filed: 11/24/24 22:35> Medical Records Medical records reviewed: Yes I reviewed the external patient's medical records. <Gregory Lynn MD - Last Filed: 11/24/24 22:35> Vital Signs Vital Signs: Vital Signs Temperature 96.5 F L 11/24/24 16:54 Pulse Rate 55 L 11/24/24 16:54 Respiratory Rate 20 11/24/24 16:54 Blood Pressure 143/78 H 11/24/24 16:54 Pulse Oximetry 99 11/24/24 16:54 Oxygen Delivery Room Air 11/24/24 16:54 Temperature 99.1 F 11/24/24 20:11 Pulse Rate 64 11/24/24 23:00 Respiratory Rate 16 11/24/24 23:00 Blood Pressure 125/68 11/24/24 23:00 Pulse Oximetry 100 11/24/24 23:00 Oxygen Delivery Room Air 11/24/24 16:54 <Rubi Díaz PA-C - Last Filed: 11/25/24 11:10> Vital Signs Temperature 96.5 F L 11/24/24 16:54 Pulse Rate 55 L 11/24/24 16:54 Respiratory Rate 20 11/24/24 16:54 Blood Pressure 143/78 H 11/24/24 16:54 Pulse Oximetry 99 11/24/24 16:54 Oxygen Delivery Room Air 11/24/24 16:54 Temperature 99.1 F 11/24/24 20:11 Pulse Rate 64 11/24/24 23:00 Respiratory Rate 16 11/24/24 23:00 Blood Pressure 125/68 11/24/24 23:00 Pulse Oximetry 100 11/24/24 23:00 Oxygen Delivery Room Air 11/24/24 16:54 <Gregory Lynn MD - Last Filed: 11/24/24 22:35> Lab Data Lab results reviewed: Yes I reviewed the patient's lab results. <Gregory Lynn MD - Last Filed: 11/24/24 22:35> Result diagrams: 11/24/24 21:13 11/24/24 21:13 <Rubi Díaz PA-C - Last Filed: 11/25/24 11:10> Labs: Lab Results 11/24/24 Range/Units 21:13 WBC 7.5 (4.5-10.0) K/mm3 RBC 5.13 (4.6-6.20) M/mm3 Hgb 15.3 (14.0-18.0) g/dL Hct 47.0 (42.0-52.0) % MCV 91.6 (80-100) fl MCH 29.8 (26-34) pg MCHC 32.6 (32-36) g/dl RDW 13.7 (11.5-14.5) % Plt Count 171 (150-375) k/mm3 MPV 10.1 (7.4-10.4) fl Immature Gran % (Auto) 0.3 (0-0.5) % Neut % (Auto) 64.5 (45.5-73.1) % Lymph % (Auto) 26.2 (18.3-44.2) % Page % (Auto) 7.5 (2.6-8.5) % Eos % (Auto) 1.1 (0-4.4) % Baso % (Auto) 0.4 (0.2-1.2) % Lymph # (Auto) 1.95 (0.9-3.2) K/mm3 Page # (Auto) 0.6 (0.1-0.6) K/mm3 Eos # (Auto) 0.1 (0-0.3) K/mm3 Baso # (Auto) 0.0 (0.0-0.1) K/mm3 Abs Immat Gran (auto) 0.02 (0.00-0.031) K/mm3 Absolute Neuts (auto) 4.8 (1.3-6.7) K/mm3 Absolute Nucleated RBC 0.000 (0.0-0.012) K/mm3 Nucleated RBC % 0.0 (0.0-0.2) % Sodium 139 (137-145) mmol/L Potassium 4.3 (3.4-5.0) mmol/L Chloride 105 (98-107) mmol/L Carbon Dioxide 30 (22-30) mmol/L Anion Gap 4 (4-12) mmol/L BUN 13 D (9-20) mg/dL Creatinine 0.92 (0.7-1.3) mg/dL Estim Creat Clear Calc 85 ml/min Estimated GFR > 60 (59 - ) Glucose 155 H (65-110) mg/dL Calcium 9.4 (8.4-10.2) mg/dL Magnesium 2.2 (1.6-2.3) mg/dL Total Bilirubin 1.2 (0.2-1.3) mg/dL AST 28 (17-59) U/L ALT 52 H (6-50) U/L Alkaline Phosphatase 79 (38-126) U/L Total Protein 8.0 (6.3-8.2) g/dL Albumin 4.4 (3.5-5.1) g/dL <Rubi Díaz PA-C - Last Filed: 11/25/24 11:10> Lab Results 11/24/24 Range/Units 21:13 WBC 7.5 (4.5-10.0) K/mm3 RBC 5.13 (4.6-6.20) M/mm3 Hgb 15.3 (14.0-18.0) g/dL Hct 47.0 (42.0-52.0) % MCV 91.6 (80-100) fl MCH 29.8 (26-34) pg MCHC 32.6 (32-36) g/dl RDW 13.7 (11.5-14.5) % Plt Count 171 (150-375) k/mm3 MPV 10.1 (7.4-10.4) fl Immature Gran % (Auto) 0.3 (0-0.5) % Neut % (Auto) 64.5 (45.5-73.1) % Lymph % (Auto) 26.2 (18.3-44.2) % Page % (Auto) 7.5 (2.6-8.5) % Eos % (Auto) 1.1 (0-4.4) % Baso % (Auto) 0.4 (0.2-1.2) % Lymph # (Auto) 1.95 (0.9-3.2) K/mm3 Page # (Auto) 0.6 (0.1-0.6) K/mm3 Eos # (Auto) 0.1 (0-0.3) K/mm3 Baso # (Auto) 0.0 (0.0-0.1) K/mm3 Abs Immat Gran (auto) 0.02 (0.00-0.031) K/mm3 Absolute Neuts (auto) 4.8 (1.3-6.7) K/mm3 Absolute Nucleated RBC 0.000 (0.0-0.012) K/mm3 Nucleated RBC % 0.0 (0.0-0.2) % Sodium 139 (137-145) mmol/L Potassium 4.3 (3.4-5.0) mmol/L Chloride 105 (98-107) mmol/L Carbon Dioxide 30 (22-30) mmol/L Anion Gap 4 (4-12) mmol/L BUN 13 D (9-20) mg/dL Creatinine 0.92 (0.7-1.3) mg/dL Estim Creat Clear Calc 85 ml/min Estimated GFR > 60 (59 - ) Glucose 155 H (65-110) mg/dL Calcium 9.4 (8.4-10.2) mg/dL Magnesium 2.2 (1.6-2.3) mg/dL Total Bilirubin 1.2 (0.2-1.3) mg/dL AST 28 (17-59) U/L ALT 52 H (6-50) U/L Alkaline Phosphatase 79 (38-126) U/L Total Protein 8.0 (6.3-8.2) g/dL Albumin 4.4 (3.5-5.1) g/dL <Gregory Lynn MD - Last Filed: 11/24/24 22:35> Imaging Data Attestation: I personally reviewed and interpreted this imaging study as follows: < Gregory Lynn MD - Last Filed: 11/24/24 22:35> My impression: Impressions Head CT 11/24/24 18:49 IMPRESSION: No acute intracranial findings. Chest X-Ray 11/24/24 21:41 IMPRESSION: No acute cardiopulmonary pathology. <Gregory Lynn MD - Last Filed: 11/24/24 22:35> Critical Care Time Critical Care Time Critical Care Time: No <Rubi Díaz PA-C - Last Filed: 11/25/24 11:10> Discharge Plan Discharge Clinical Impression: History of migraine Headache Qualifiers: Headache type: unspecified Headache chronicity pattern: acute headache I ntractability: not intractable Qualified Code(s): R51.9 - Headache, unspecified <Rubi Díaz PA-C - Last Filed: 11/25/24 11:10> Patient Disposition: Home <Rubi Díaz PA-C - Last Filed: 11/25/24 11:10> Condition: Stable <Rubi Díaz PA-C - Last Filed: 11/25/24 11:10> Instructions: Antibiotic Form, Migraine Headache (ED), Acute Headache (DC) <Rubi Díaz PA-C - Last Filed: 11/25/24 11:10> Additional Instructions: Your laboratory studies and imaging studies are all normal which is reassuring. Your symptoms could be related to her migraine headaches and we encouraged to follow-up with regular doctor regarding this. Return with any urgent or emergent concerns at any time. <Rubi Díaz PA-C - Last Filed: 11/25/24 11:10> Patient Language: Icelandic <Rubi Díaz PA-C - Last Filed: 11/25/24 11:10> Prescriptions: No Action azithromycin [Zithromax] 250 mg tablet See Rx Instructions .ROUTE .COMPLEX Qty: 6 0RF Rx Instructions: For 250 mg dose pack: take 500 mg today (day 1), then 250 mg for 4 days (days 2-5) prednisone 20 mg tablet 20 mg PO BID 5 Days Qty: 10 0RF atorvastatin 20 mg tablet 20 mg DIRECTED sildenafil 50 mg tablet 50 mg DIRECTED losartan 25 mg tablet 25 mg DIRECTED albuterol sulfate 90 mcg/actuation HFA aerosol inhaler 90 mcg INHALATION DIRECTED mupirocin 2 % ointment 1 applic topical TID 14 Days Qty: 22 0RF methylprednisolone [Medrol (Jorge A)] 4 mg tablets,dose pack See Rx Instructions .ROUTE .COMPLEX Qty: 21 0RF Rx Instructions: orally per package directions cyclobenzaprine 10 mg tablet 10 mg PO TID PRN (Reason: muscle spasm) Qty: 20 0RF naproxen 375 mg tablet 375 mg PO BID Qty: 14 0RF ondansetron 4 mg tablet,disintegrating 4 mg PO Q6H PRN (Reason: nausea and vomiting) Qty: 10 0RF zinc oxide 24 % cream 1 applic topical DAILY Qty: 113 0RF naproxen [Naprosyn] 500 mg tablet 500 mg PO BID Qty: 20 0RF cyclobenzaprine 10 mg tablet 10 mg PO TID Qty: 14 0RF <Rubi Díaz PA-C - Last Filed: 11/25/24 11:10> Follow-up/Referrals: Boyd,MD Carrillo ([place]) [Primary Care Provider] - <Rubi Díaz PA-C - Last Filed: 11/25/24 11:10> Stand Alone Forms: Work/School Release IP <Rubi Díaz PA-C - Last Filed: 11/25/24 11:10> Time of Disposition: 22:35 <Rubi Díaz PA-C - Last Filed: 11/25/24 11:10> 22:35 <Gregory Lynn MD - Last Filed: 11/24/24 22:35>
[2024-11-24 20:11] VITALS: BP 159/84; PULSE 56; RESP 17; TEMP 37.3; O2SAT 100
[2024-11-24 21:19] LABS: Basophils Percent Auto 0.4 % (0.2-1.2); Eosinophils Absolute Auto 0.1 K/mm3 (0-0.3); Eosinophils Percent Auto 1.1 % (0-4.4); Hemoglobin 15.3 g/dL (14.0-18.0); Immature Granulocyte Absolute 0.02 K/mm3 (0.00-0.031); Immature Granulocyte Percent A 0.3 % (0-0.5); Lymphocytes Absolute Auto 1.95 K/mm3 (0.9-3.2); Lymphocytes Percent Auto 26.2 % (18.3-44.2); Mean Corpuscular HGB Conc 32.6 g/dl (32-36); Mean Corpuscular Hemoglobin 29.8 pg (26-34); Mean Corpuscular Volume 91.6 fl (80-100); Mean Platelet Volume 10.1 fl (7.4-10.4); Monocytes Absolute Auto 0.6 K/mm3 (0.1-0.6); Monocytes Percent Auto 7.5 % (2.6-8.5); Neutrophils Absolute Auto 4.8 K/mm3 (1.3-6.7); Neutrophils Percent Auto 64.5 % (45.5-73.1); Platelet Count Result 171 k/mm3 (150-375); Red Blood Count 5.13 M/mm3 (4.6-6.20); Red Cell Distribution Width 13.7 % (11.5-14.5); White Blood Count 7.5 K/mm3 (4.5-10.0)
[2024-11-24 21:21] VITALS: RESP 15; O2SAT 100
[2024-11-24 21:22] VITALS: BP 150/69; PULSE 48; RESP 15; O2SAT 100
[2024-11-24 21:28] LABS: Alanine Aminotransferase 52 U/L (6-50); Albumin Level 4.4 g/dL (3.5-5.1); Alkaline Phosphatase 79 U/L (38-126); Anion Gap 4 mmol/L (4-12); Aspartate Amino Transferase 28 U/L (17-59); Bilirubin,Total 1.2 mg/dL (0.2-1.3); Blood Urea Nitrogen 13 mg/dL (9-20); Calcium 9.4 mg/dL (8.4-10.2); Carbon Dioxide 30 mmol/L (22-30); Chloride 105 mmol/L (98-107); Estimated CRCL calculation 85 ml/min; Estimated Glomerular Filt Rate > 60; Glucose 155 mg/dL (65-110); Magnesium 2.2 mg/dL (1.6-2.3); Potassium 4.3 mmol/L (3.4-5.0); Sodium 139 mmol/L (137-145)
[2024-11-24] MEDS: diphenhydrAMINE HCl CAP 25 MG CAPSULE PO (22:04)
[2024-11-24] MEDS: KETOROLAC 10 MG TABLET PO (22:04)
[2024-11-24] MEDS: PROCHLORPERAZINE MALEATE 5 MG TABLET 10 MG PO (22:04)
[2024-11-24 23:00] VITALS: BP 125/68; PULSE 64; RESP 16; O2SAT 100
== END 2024-11-24 23:07 | disposition home or self-care (01) ==
PROVIDERS: Physician Assistant; Emergency Provider Student in an Organized Health Care Education/Training Program; PCP Internal Medicine
DX: R51.9 Headache, unspecified (principal); I10 Essential (primary) hypertension; E78.5 Hyperlipidemia, unspecified; Z79.899 Other long term (current) drug therapy
CPT/HCPCS: 36415; 70450; 71046; 80053; 83735; 85025; 99284; A9270

== ENCOUNTER 2025-06-02 14:32 | Emergency (ER) | payer MEDICARE, SELFPAY ==
--- NOTE | ~2025-06-02 | CT_ITS ---
EXAMINATION: CT abd pelvis lumbar wo con DATE: 06/02/2025 17:47 INDICATION: Left flank pain. History of kidney stone. TECHNIQUE: Computed tomography (CT) of the abdomen, pelvis and lumbar spine was performed without intravenous contrast. The dose-length product was 821.22 mGy- cm. Automated exposure control and iterative reconstruction technique were employed. COMPARISON: None FINDINGS: Abdomen/pelvis: Lung bases unremarkable. Heart size normal. The liver, spleen, pancreas, adrenal glands and kidneys are unremarkable. There is siri mesentery with increase number and mildly enlarged mesenteric lymph nodes. No discrete mass or abscess otherwise identified. Colonic diverticulosis without evidence for diverticulitis. Nonobstructive bowel gas pattern. No abnormal pelvic masses or fluid collections. Enlarged prostate gland. No significant vascular abnormality. No lymphadenopathy. No free air or free fluid. Lumbar spine: Vertebral body heights are maintained. There is mild facet degenerative change at L3-4 through L5-S1. Prominent ventral osteophyte at L5- S1. No acute fracture, subluxation or dislocation. There is partial ankylosis of the sacroiliac joints. IMPRESSION: 1. 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 Findings nonspecific although may be be seen with mesenteric panniculitis, mild mesenteric inflammation, infection or reactive lymphadenopathy. Reviewed, dictated and finalized at location I. GER FURNITURE IMPRESSION: 1. 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 Fin dings nonspecific although may be be seen with mesenteric panniculitis, mild me senteric inflammation, infection or reactive lymphadenopathy.
[2025-06-02 14:35] VITALS: BP 151/69; PULSE 62; RESP 16; TEMP 36.4; O2SAT 100
--- NOTE | 2025-06-02 17:20 | ED.BACK ---
HPI - Back Pain/Injury General Chief Complaint: Back Pain/Injury Stated Complaint: back, lower issues Time Seen by Provider: 06/02/25 17:02 History of Present Illness HPI Narrative: Patient is a 65-year-old male who presents to the ER with a 2 day history of back/left flank pain. He reports the pain increases with movement and is constant. Patient reports the pain as ?crippling.He reports the pain is worse on the left than the right. He denies any hematuria, injury to the site, recent fevers, or loss of continence. Patient endorses a history of high blood pressure, hyperlipidemia, and prediabetes. Related Data Home Medications ?Medication ?Instructions ?Recorded ?Confirmed ?Last Taken ?Type albuterol sulfate 90 mcg/actuation 90 mcg inhalation DIRECTED 12/09/21 01/25/22 Unknown History aerosol inhaler atorvastatin 20 mg tablet 20 mg DIRECTED 12/09/21 01/25/22 Unknown History losartan 25 mg tablet 25 mg DIRECTED 12/09/21 01/25/22 Unknown History sildenafil 50 mg tablet 50 mg DIRECTED 12/09/21 01/25/22 Unknown History Allergies Allergy/AdvReac Type Severity Reaction Status Date / Time No Known Allergies Allergy Verified 06/02/25 14:37 Review of Systems Review of Systems: All systems reviewed & are unremarkable except as noted in HPI and below PMFSH Past Medical History Medical History History of hyperlipidemia History of hypertension Surgical History Surgical History H/O repair of rotator cuff bilateral H/O left knee surgery Social History Social History Smoking status: Never smoker Alcohol intake: unknown Substance use: never Living arrangements: with family Gender identity (if verbalized by the patient): Male Exam Narrative: GENERAL: Well appearing, well-nourished, non-toxic, in no acute distress. HEAD: Normocephalic, atraumatic. NECK: Supple. No adenopathy, no masses. RESPIRATORY: Airway patent, respirations nonlabored. Clear to auscultation bilaterally, no rales, rhonchi, wheezing. CARDIOVASCULAR: Regular rate and rhythm without murmurs, rubs, or gallops. Peripheral pulses 2+ and equal bilaterally. ABDOMINAL: Soft, nontender, nondistended, no hepatosplenomegaly. Normoactive BS. MUSCULOSKELETAL: Moves all extremities. Strength/ROM intact without gross deformities. SKIN: Warm, dry, normal color. No rashes. NEURO: A&O X3. Speech clear. Cranial nerves II-XII intact. No ataxic movements. PSYCHIATRIC: Appropriate mood and affect. Normal interaction. Course Vital Signs Vital signs: Vital Signs Temperature 36.4 C 06/02/25 14:35 Pulse Rate 62 06/02/25 14:35 Respiratory Rate 16 06/02/25 14:35 Blood Pressure 151/69 H 06/02/25 14:35 Pulse Oximetry 100 06/02/25 14:35 Temperature 36.4 C 06/02/25 14:35 Pulse Rate 62 06/02/25 14:35 Respiratory Rate 16 06/02/25 14:35 Blood Pressure 151/69 H 06/02/25 14:35 Pulse Oximetry 100 06/02/25 14:35 MDM MDM Narrative Medical decision making narrative: Patient is a 65-year-old male who presents to the ER with a 2 day history of back/left flank pain. He reports the pain increases with movement and is constant. Patient reports the pain as ?crippling.He reports the pain is worse on the left than the right. He denies any hematuria, injury to the site, recent fevers, or loss of continence. Patient endorses a history of high blood pressure, hyperlipidemia, and prediabetes. Labs Ordered: UA Imaging Ordered: CT abdomen pelvis lumbar Medications Ordered: prednisone 40 mg p.o., Toradol 60 mg IM Results: Pt's CT scan indicates Abdomen/pelvis: Lung bases unremarkable. Heart size normal. The liver, spleen, pancreas, adrenal glands and kidneys are unremarkable. There is siri mesentery with increase number and mildly enlarged mesenteric lymph nodes. No discrete mass or abscess otherwise identified. Colonic diverticulosis without evidence for diverticulitis. Nonobstructive bowel gas pattern. No abnormal pelvic masses or fluid collections. Enlarged prostate gland. No significant vascular abnormality. No lymphadenopathy. No free air or free fluid. Lumbar spine: Vertebral body heights are maintained. There is mild facet degenerative change at L3-4 through L5-S1. Prominent ventral osteophyte at L5-S1. No acute fracture, subluxation or dislocation. There is partial ankylosis of the sacroiliac joints. Diagnosis: lumbar radiculopathy, lumbar strain Patient Education/Shared MDM: Results of lab work and imaging shared with patient. he endorses improvement of symptoms following medication administration. Patient strongly advised to follow-up with his PCP as soon as possible for further evaluation of enlarged lymph nodes in his pelvis. He will be discharged home with a prescription for muscle relaxants and ibuprofen 800 mg. Strict return precautions provided. Patient verbalized understanding and is in agreement with plan. Vital signs stable at time of discharge. All questions answered. Differential Diagnosis Differential Diagnosis: Kidney stone, lumbar radiculopathy, urinary tract infection Lab Data [facility] Lab Attestation statement: I personally reviewed the patient's lab results. Labs: Lab Results 06/02/25 Range/Units 18:00 Urine Color Yellow (Yellow) Urine Appearance Clear (Clear) Urine pH 5.0 (5.0-9.0) Ur Specific [place] 1.027 (1.001-1.035) Urine Protein Negative (Negative) mg/dL Urine Glucose (UA) Negative (Negative) mg/dL Urine Ketones Trace H (Negative) mg/dL Ur Blood (Man) Negative (Negative) Urine Nitrate Negative (Negative) Urine Bilirubin Negative (Negative) Urine Urobilinogen 1.0 (<2.0) mg/dL Leukocyte Esterase Rfl Negative (Negative) ROHINI/UL Imaging Data Attestation: I personally reviewed and interpreted this imaging study as follows: Radiologist's impression: ITS Impressions Miscellaneous CT Procedure 06/02/25 17:49 IMPRESSION: 1. 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 Findings nonspecific although may be be seen with mesenteric panniculitis, mild mesenteric inflammation, infection or reactive lymphadenopathy. Discharge Plan Discharge Clinical Impression: Lumbar radiculopathy, Strain of lumbar region, Enlargement of lymph nodes Patient Disposition: Home Condition: Stable Instructions: Antibiotic Form, Acute Low Back Pain (ED), Lumbar Radiculopathy (ED) Additional Instructions: Please return to the ER with any worsening symptoms. Follow-up with primary care provider as soon as possible regarding the enlarged lymph nodes noted on your CT scan. Take all medications as prescribed, including regularly scheduled medications. You may take muscle relaxants and Ibuprofen 800mg as needed for pain control. Patient Language: Danish Prescriptions: New tizanidine [Zanaflex] 4 mg capsule 4 mg PO TID PRN (Reason: muscle spasticity) Qty: 30 0RF ibuprofen 800 mg tablet 800 mg PO TID PRN (Reason: pain) Qty: 30 0RF No Action azithromycin [Zithromax] 250 mg tablet See Rx Instructions .ROUTE .COMPLEX Qty: 6 0RF Rx Instructions: For 250 mg dose pack: take 500 mg today (day 1), then 250 mg for 4 days (days 2-5) prednisone 20 mg tablet 20 mg PO BID 5 Days Qty: 10 0RF atorvastatin 20 mg tablet 20 mg DIRECTED sildenafil 50 mg tablet 50 mg DIRECTED losartan 25 mg tablet 25 mg DIRECTED albuterol sulfate 90 mcg/actuation HFA aerosol inhaler 90 mcg INHALATION DIRECTED mupirocin 2 % ointment 1 applic topical TID 14 Days Qty: 22 0RF methylprednisolone [Medrol (Jorge A)] 4 mg tablets,dose pack See Rx Instructions .ROUTE .COMPLEX Qty: 21 0RF Rx Instructions: orally per package directions cyclobenzaprine 10 mg tablet 10 mg PO TID PRN (Reason: muscle spasm) Qty: 20 0RF naproxen 375 mg tablet 375 mg PO BID Qty: 14 0RF ondansetron 4 mg tablet,disintegrating 4 mg PO Q6H PRN (Reason: nausea and vomiting) Qty: 10 0RF zinc oxide 24 % cream 1 applic topical DAILY Qty: 113 0RF naproxen [Naprosyn] 500 mg tablet 500 mg PO BID Qty: 20 0RF cyclobenzaprine 10 mg tablet 10 mg PO TID Qty: 14 0RF Follow-up/Referrals: Boyd,MD Carrillo ([place]) [Primary Care Provider] Stand Alone Forms: Work/School Release IP Time of Disposition: 19:37
[2025-06-02] MEDS: KETOROLAC (*BKC) 60 MG/2 ML VIAL IM (17:50)
[2025-06-02 18:07] LABS: Add Urine Microscopic? NO; Appearance Urine Clear (Clear); Glucose Urine UA Negative (Negative); Leukocyte Esterase Ur Negative LEU/UL (Negative); Nitrate Urine Negative (Negative); Specific Grav Ur 1.027 (1.001-1.035)
--- OUTSIDE RECORDS SUMMARY | 2025-06-02 18:12 | XMS_ITS | Encounter Summary ---
Author Organization [facility] Address [facility] [place] [address] Care Team Providers Care Outsole Flexer Name Role Phone Luis Carlos Nix MD Primary Care Provider [phone] Encounter Details Date Type Department Care Team (Late Contact Info) Description 10/27/2022 [employer] Message Enc [facility] [address] [address] [place], [facility] Provider [facility]A CHEST Social History Tobacco Use Types Packs/Day Years Used Date Smoking Tobacco: Never Smokeless Tobacco: Never Alcohol Use Standard Drinks/Week Comments Not Currently 0 (1 standard drink = 0.6 oz pur e alcohol) Sex and Gender Information Value Date Recorded Sex Assigned at Male 12/12/2024 6:47 AM CDT Legal Sex Male 9:43 AM CDT Gender Identity Not on file Sexual Orientation Not on file 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 No / Unsure 10/27/2022 9:25 AM CDT documented as of this encounter Plan of Treatment Upcoming Encounters Date Type Department Care Team (Late Contact Info) Description 12/04/2025 9:30 AM CDT Office Visit [facility], [address] [phone] Katie Neal MD [facility] [address] [place] [address] documented as of this encounter Visit Diagnoses Not on filedocumented in this encounter Care Teams Outsole Flexer Relationship Specialty Start Date End Date Luis Carlos Nix MD [address] [facility] [address] [place] [address] PCP - General INTERNAL MEDICINE 09/30/21 documented as of this encounter
--- OUTSIDE RECORDS SUMMARY | 2025-06-02 18:13 | XMS_ITS | Data Portability ---
Author Organization [facility], [employer] Address [address] [address] Assessment Encounter Date Assessment Date Assessment LastModified by Organization Details LastModified Time 08/18/2023 08/18/2023 Recommends healthy nutrition, including a [...] as noted below. Not available 06/08/2024 11:13:33 01/20/2025 01/20/2025 Recommends healthy nutrition, including a diet rich in fruits and vegetables, minimizing simple carbohydrates, salt, and saturated fats. Encouraged regular cardiovascular exercise such as walking at least 30 minutes daily, 5 times per week. Patient presented for follow up. Studies ordered as below. Discussed plan with patient/caregiver , who expressed understanding. Follow up as noted below. Not available 01/20/2025 09:43:54 Plan of Treatment Reminders Order Date Submit Date Provider Last Modified By Organization Details Last Modified Time Details Appointments ESTABLISH ED PATIENT 15 2025 07:45A Anamaria Merchant MD Not available Not available Not available Lab HbA1c (hemoglob in A1c), blood 2024 025 [facility], [address] [facility], [place], [address], 02/16/2025 14:52:16 PSA, serum or plasma [id number] [facility], [address], [place], [address], 02/22/2025 08:19:57 lipid panel, serum 2024 025 [facility], [address], [place], [address], 02/16/2025 14:52:18 CBC w/ auto diff 2024 025 [facility], [address], [place], [address], 02/16/2025 14:52:17 CMP, serum or plasma 2024 025 [facility], [address], [place], [address], 02/16/2025 14:52:18 microalbu min/creat inine, mass ratio, urine [email or web address] [facility], [address], [place], [address], 02/22/2025 08:19:57 PSA, serum or plasma 2023 024 [facility], [address], [place], [address], 06/15/2024 09:47:42 lipid panel, serum 2023 [facility], [address] [facility], [place], [address], 06/15/2024 09:47:42 glucose tolerance test, 4 specimens 2023 [facility], [address] [facility], [place], [address], 06/15/2024 09:47:42 CBC w/ auto diff 2023 [facility], [address] [place], [address], 06/15/2024 09:47:41 CMP, serum or plasma 2023 [facility], [address] [place], [address], 06/15/2024 09:47:41 HbA1c (hemoglob in A1c), blood 2023 [facility], [address] [place], [address], 06/15/2024 09:47:42 microalbu min/creat inine, mass ratio, urine 2023 [facility], [address] [facility], [place], [address], 06/15/2024 09:47:42 glucose tolerance test, 4 specimens 2023 [facility], [address] [place], [address], 02/26/2024 08:11:51 CBC w/ auto diff 2023 024 [facility], [address] [place], [address], 02/26/2024 08:11:51 CMP, serum or plasma 2023 [facility], [address] [facility], [place], [address], 02/26/2024 08:11:52 TSH + free T4, serum 2023 024 [facility], [address] [facility], [place], [address], 02/26/2024 08:11:52 T3, free, serum or plasma 2023 024 [facility], [address] [facility], [place], [address], 02/26/2024 08:11:52 CBC w/ auto diff 2023 024 [facility], [address] [place] [address], [place], [address], 02/26/2024 08:11:50 CMP, serum or plasma 2023 024 [facility], [address] [place], [address], 02/26/2024 08:11:51 HbA1c (hemoglob in A1c), blood 2023 024 [facility], [address] [place] [address], [address], 02/26/2024 08:11:51 BMP, serum or plasma 2023 024 [facility], [address] [place], [address], 02/26/2024 08:11:51 CBC w/ auto diff 2023 024 MICHELLE Not available 11/19/2023 19:15:40 CMP, serum or plasma 2023 024 MICHELLE Not available 11/19/2023 19:15:41 PSA, serum or plasma 2023 024 [facility], [address] [facility], [place], [address], 08/25/2023 08:22:23 lipid panel, serum 2023 024 [email or web address] Not available 08/25/2023 08:22:23 CBC w/ auto diff 2023 024 [email or web address] Not available 08/25/2023 08:22:23 CMP, serum or plasma 2023 024 MICHELLE Not available 08/20/2023 12:32:38 Referral cardiolog ist referral 2023 024 daly Engle MD, [facility], [address], [place], [address], 06/08/2024 11:26:56 cardiolog ist referral 2023 024 delbert Engle MD, [facility], [address], [place], [address], 05/19/2024 08:42:25 Procedures None recorded. Surgeries None recorded. Imaging electroca rdiogram 2023 024 [facility], [facility], [address] [place] [address] , [address], [place], [address], 02/19/2024 14:09:01 CT, abdomen + pelvis, w/ contrast 2023 024 [facility] [address] , [address], [place], [address], 03/04/2024 08:22:36 Medication Orders triamcino lone acetonide 0.1 % topical ointment 2024 025 [facility], [address] [facility], [place], [place], [id number], 01/20/2025 10:06:57 rosuvasta tin 10 mg tablet [address] [facility], [address], [place], [place], [id number], 01/20/2025 10:07:30 triamcino lone acetonide 0.1 % topical ointment 2023 024 [facility]40523, [address], [place], [place], [id number], 06/08/2024 11:20:11 rosuvasta tin 10 mg tablet 2023 024 [facility] #96256, [address], [place], [place], [id number], 06/08/2024 11:20:12 triamcino lone acetonide 0.1 % topical ointment 2023 024 [facility] #92967, [address], [place], [place], [id number], 02/19/2024 11:03:31 rosuvasta tin 10 mg tablet [address] [facility]54786, [address], [place], [place], [id number], 02/19/2024 11:04:37 rosuvasta tin 10 mg tablet 2023 024 [facility] #95427, [address], [place], [place], [id number], 11/17/2023 11:00:35 triamcino lone acetonide 0.1 % topical ointment 2023 024 [facility] #32834, [address], [place], [place], [id number], 11/17/2023 11:00:34 atorvasta tin 20 mg tablet 2023 024 [email or web address] [facility] #01167, [address] , [place], [place], [id number], 02/20/2025 01:05:50 triamcino lone acetonide 0.1 % topical ointment 2023 024 MICHELLE [facility] #28363, [address] , [place], [place], [id number], 08/18/2023 09:52:16 Patient TargetsNo targets recorded. Patient Instructions Encounter Date Encounter Id Patient Instructions Last Modified By Organization Details Last Modified Time 08/18/2023 [id number] advised to lose weight Not available 08/18/2023 09:37:46 Discussed and explained advance directives such as standard forms to the . Face to face discussion lasted for a duration of ___ minutes. Not available 08/18/2023 09:03:32 11/17/2023 [id number] advised to lose weight Not available 11/17/2023 11:00:24 02/19/2024 [id number] advised to lose weight Not available 02/19/2024 11:03:19 06/08/2024 [id number] spirometry testing* MICHELLE Not available 06/09/2024 08:15:29 advised to lose weight Not available 06/08/2024 11:19:36 01/20/2025 [id number] advised to lose weight Not available 01/20/2025 10:06:49 Discussed and explained advance directives such as standard forms to the . Face to face discussion lasted for a duration of ___ minutes. Not available 01/20/2025 09:43:16 Reason for Referral Sodder Referral for Ex cessive sweating Referring Physician: Luis Carlos Merchant, Internal Medicine, Encounter Date: 02/19/2024 Sodder Referral for Ex cessive sweating Referring Physician: Luis Carlos Merchant, Internal Medicine, Encounter Date: 06/08/2024 Results Created Date Observation Date Name Description Value Unit Range Abnormal Flag Note LastModifiedBy Organization Detail LastModifiedTime 08/18/19 24 08/18/2023 CBC WITH AUTO- DIFFE RENTI AL WBC 4.8 10*3/ uL 3.4-10 .8 Not Available [facility] [address], [place], [address], 08/20/2023 12:32:37 08/18/19 24 08/18/2023 CBC WITH AUTO- DIFFE RENTI AL RBC 5.15 10*6/ uL 4.20-5 .80 Not Available [facility] [address], [place], [address], 08/20/2023 12:32:37 08/18/19 24 08/18/2023 CBC WITH AUTO- DIFFE RENTI AL HGB 15.4 g/dL 12.6-1 7.7 Not Available [facility] [address], [place], [address], 08/20/2023 12:32:37 08/18/19 24 08/18/2023 CBC WITH AUTO- DIFFE RENTI AL HCT 47.0 % 37.5-5 1.0 Not Available [facility] [address], [place], [address], 08/20/2023 12:32:37 08/18/19 24 08/18/2023 CBC WITH AUTO- DIFFE RENTI AL MCV 91 fL 79-97 Not Available [facility] [address], [place], [address], 08/20/2023 12:32:37 08/18/19 24 08/18/2023 CBC WITH AUTO- DIFFE RENTI AL MCH 29.9 pg 26.6-3 3.0 Not Available [facility] [address] [facility] [address], [place], [address], 08/20/2023 12:32:37 08/18/19 24 08/18/2023 CBC WITH AUTO- DIFFE RENTI AL MCHC 32.8 g/dL 31.5-3 5.7 Not Available [facility] [address], [place], [address], 08/20/2023 12:32:37 08/18/19 24 08/18/2023 CBC WITH AUTO- DIFFE RENTI AL RDW 13.6 % 11.5-1 4.5 Not Available [facility] [address] [facility] [address], [place], [address], 08/20/2023 12:32:37 08/18/19 24 08/18/2023 CBC WITH AUTO- DIFFE RENTI AL platelets 173 10*3/ uL 150-40 0 Not Available [facility] [address], [place], [address], 08/20/2023 12:32:37 08/18/19 24 08/18/2023 CBC WITH AUTO- DIFFE RENTI AL MPV 11 fL 9-13 Not Available [facility] [address], [place], [address], 08/20/2023 12:32:37 08/18/19 24 08/18/2023 CBC WITH AUTO- DIFFE RENTI AL neutrophils 47.1 % 40.0-7 4.0 Not Available [facility] [address], [place], [address], 08/20/2023 12:32:37 08/18/19 24 08/18/2023 CBC WITH AUTO- DIFFE RENTI AL absolute neutrophils 2.26 10*3/ uL 1.40-7 .00 Not Available [facility] [address], [place], [address], 08/20/2023 12:32:37 08/18/19 24 08/18/2023 CBC WITH AUTO- DIFFE RENTI AL lymphocytes 35.8 % 14.0-4 6.0 Not Available [facility] [address], [place], [address], 08/20/2023 12:32:37 08/18/19 24 08/18/2023 CBC WITH AUTO- DIFFE RENTI AL absolute lymphocytes 1.72 10*3/ uL 0.70-3 .10 Not Available [facility] [address] [facility] [address], [place], [address], 08/20/2023 12:32:37 08/18/19 24 08/18/2023 CBC WITH AUTO- DIFFE RENTI AL monocytes 12.3 % 4.0-12 .0 high Not Available [facility] [address] [facility] [address], [place], [address], 08/20/2023 12:32:37 08/18/19 24 08/18/2023 CBC WITH AUTO- DIFFE RENTI AL absolute monocytes 0.59 10*3/ uL 0.10-0 .90 Not Available [facility] [address], [place], [address], 08/20/2023 12:32:37 08/18/19 24 08/18/2023 CBC WITH AUTO- DIFFE RENTI AL eosinophils 3.8 % 0.0-5. 0 Not Available [facility] [address] [facility] [address], [place], [address], 08/20/2023 12:32:37 08/18/19 24 08/18/2023 CBC WITH AUTO- DIFFE RENTI AL absolute eosinophils 0.18 10*3/ uL 0.00-0 .40 Not Available [facility] [address] [facility] [address], [place], [address], 08/20/2023 12:32:37 08/18/19 24 08/18/2023 CBC WITH AUTO- DIFFE RENTI AL basophils 0.8 % 0.0-3. 0 Not Available [facility] [address] [facility] [address], [place], [address], 08/20/2023 12:32:37 08/18/19 24 08/18/2023 CBC WITH AUTO- DIFFE RENTI AL absolute basophils 0.04 10*3/ uL 0.00-0 .20 Not Available [facility] [address] [facility] [address], [place], [address], 08/20/2023 12:32:37 08/18/19 24 08/18/2023 CBC WITH AUTO- DIFFE RENTI AL imm. gran. 0.2 % 0.0-2. 0 Not Available [facility] [address] [facility] [address], [place], [address], 08/20/2023 12:32:37 08/18/19 24 08/18/2023 CBC WITH AUTO- DIFFE RENTI AL abs. imm. gran. 0.01 10*3/ uL 0.00-0 .10 Not Available [facility] [address] [facility] [address], [place], [address], 08/20/2023 12:32:37 08/18/19 24 08/18/2023 COMPR EHENS LISA METAB OLIC PANEL sodium 144 mmol/ L 134-14 4 Not Available [facility] [address] [facility] [address], [place], [address], 08/20/2023 12:32:37 08/18/19 24 08/18/2023 COMPR EHENS LISA METAB OLIC PANEL potassium 4.3 mmol/ L 3.5-5. 2 Not Available [facility] [address] [facility] [address], [place], [address], 08/20/2023 12:32:37 08/18/19 24 08/18/2023 COMPR EHENS LISA METAB OLIC PANEL chloride 107 mmol/ L 97-108 Not Available [facility] [address] [facility] [address], [place], [address], 08/20/2023 12:32:37 08/18/19 24 08/18/2023 COMPR EHENS LISA METAB OLIC PANEL carbon dioxide (co2) 27.0 mmol/ L 18.0-2 9.0 Not Available [facility] [address], [place], [address], 08/20/2023 12:32:37 08/18/19 24 08/18/2023 COMPR EHENS LISA METAB OLIC PANEL glucose 98 mg/dL 65-99 Jessika l Fasti ng: < 100 mg/dL Impai red Fasti n - 125 mg/dL Diagn ostic of Diabe jory: => 126 mg/dL Ameri can [facility], 2007 Not Available [facility] [address], [place], [address], 08/20/2023 12:32:37 08/18/19 24 08/18/2023 COMPR EHENS LISA METAB OLIC PANEL urea nitrogen (BUN) 13 mg/dL 8-23 Not Available [facility] [address] [facility] [address], [place], [address], 08/20/2023 12:32:37 08/18/19 24 08/18/2023 COMPR EHENS LISA METAB OLIC PANEL creatinine 1.12 mg/dL 0.76-1 .27 Not Available [facility] [address] [facility] [address], [place], [address], 08/20/2023 12:32:37 08/18/19 24 08/18/2023 COMPR EHENS LISA METAB OLIC PANEL eGFR for nonafrican AM 66 mL/mi nute/ 1.73_ m2 >59 Not Available [facility] [address] [facility] [address], [place], [address], 08/20/2023 12:32:37 08/18/19 24 08/18/2023 COMPR EHENS LISA METAB OLIC PANEL eGFR for AM 80 mL/mi nute/ 1.73_ m2 >59 MDRD Study Equat ion: The calcu lated GFR is NOT appli cable for pedia tric (< 18 years old) and > 70 year old patie nts and patie nts that are NOT of stead y state . Not Available [facility] [address] [facility] [address], [place], [address], 08/20/2023 12:32:37 08/18/19 24 08/18/2023 COMPR EHENS LISA METAB OLIC PANEL calcium 9.5 mg/dL 8.6-10 .2 Not Available [facility] [address] [facility] [address], [place], [address], 08/20/2023 12:32:37 08/18/19 24 08/18/2023 COMPR EHENS LISA METAB OLIC PANEL protein, total 6.8 gm/dL 6.4-8. 3 Not Available [facility] [address] [facility] [address], [place], [address], 08/20/2023 12:32:37 08/18/19 24 08/18/2023 COMPR EHENS LISA METAB OLIC PANEL albumin 4.5 gm/dL 3.5-5. 2 Not Available [facility] [address] [facility] [address], [place], [address], 08/20/2023 12:32:37 08/18/19 24 08/18/2023 COMPR EHENS LISA METAB OLIC PANEL bilirubin, total 0.50 mg/dL 0.00-1 .20 Not Available [facility] [address] [facility] [address], [place], [address], 08/20/2023 12:32:37 08/18/19 24 08/18/2023 COMPR EHENS LISA METAB OLIC PANEL alkaline phosphatase (ALP) 88 U/L 39-117 Not Available [facility] [address] [facility] [address], [place], [address], 08/20/2023 12:32:37 08/18/19 24 08/18/2023 COMPR EHENS LISA METAB OLIC PANEL aspartate aminotransfe rase (AST) 22 U/L 0-40 Not Available [facility] [address] [facility] [address], [place], [address], 08/20/2023 12:32:37 08/18/19 24 08/18/2023 COMPR EHENS LISA METAB OLIC PANEL alanine aminotransfe rase (ALT) 44 U/L 0-41 high Not Available [facility] [address] [facility] [address], [place], [address], 08/20/2023 12:32:37 08/18/19 24 08/18/2023 COMPR EHENS LISA METAB OLIC PANEL A/G ratio (calculated) 2.0 ratio 1.0-2. 7 Not Available [facility] [address] [facility] [address], [place], [address], 08/20/2023 12:32:37 08/18/19 24 08/18/2023 COMPR EHENS LISA METAB OLIC PANEL globulin (calculated) 2.3 gm/dL 1.5-3. 8 Not Available [facility] [address] [facility] [address], [place], [address], 08/20/2023 12:32:37 08/18/19 24 08/18/2023 COMPR EHENS LISA METAB OLIC PANEL BUN/creatini ne ratio (calculated) 11.6 ratio 8.0-20 .0 Not Available [facility] [address] [facility] [address], [place], [address], 08/20/2023 12:32:37 08/18/19 24 08/18/2023 COMPR EHENS LISA METAB OLIC PANEL serum hemolysis index NORMAL index normal Not Available [facility] [address] [facility] [address], [place], [address], 08/20/2023 12:32:37 08/18/19 24 08/18/2023 LIPID PANEL W/ CALC. LDL cholesterol, total 170 mg/dL 100-19 9 Not Available [facility] [address] [facility] [address], [place], [address], 08/20/2023 12:32:38 08/18/19 24 08/18/2023 LIPID PANEL W/ CALC. LDL HDL cholesterol 37 mg/dL =>40 Not Available [facility] [address] [facility] [address], [place], [address], 08/20/2023 12:32:38 08/18/19 24 08/18/2023 LIPID PANEL W/ CALC. LDL LDL cholesterol (calculated) 104 mg/dL 0-99 high Not Available [facility] [address] [facility] [address], [place], [address], 08/20/2023 12:32:38 08/18/19 24 08/18/2023 LIPID PANEL W/ CALC. LDL triglyceride s 145 mg/dL 50-149 Not Available [facility] [address] [facility] [address], [place], [address], 08/20/2023 12:32:38 08/18/19 24 08/18/2023 LIPID PANEL W/ CALC. LDL chol/HDL ratio (calculated) 4.59 ratio 0.00-5 .00 Not Available [facility] [address] [facility] [address], [place], [address], 08/20/2023 12:32:38 08/18/19 24 08/18/2023 LIPID PANEL W/ CALC. LDL VLDL cholesterol (calculated) 29 mg/dL 5-40 Not Available [facility] [address] [facility] [address], [place], [address], 08/20/2023 12:32:38 08/18/19 24 08/18/2023 PROST ATE-S PECIF IC ANTIG EN (PSA) , TOTAL (SCRE ENING ) prostate-spe cific antigen, total 2.1 NG/mL 0.0-4. 0 ECLIA METHO DOLOG Y. BRITTNI TS FROM THIS METHO D IS NOT SARAH TIBLE WITH DIFFE RENT ASSAY METHO D AND CANNO T BE USED INTER POWELL EABLY . Not Available [facility] [address] [facility] [address], [place], [address], 08/20/2023 12:32:39 11/17/19 24 11/17/2023 CBC WITH AUTO- DIFFE RENTI AL WBC 4.8 10*3/ uL 3.4-10 .8 Not Available [facility] [address] [facility] [address], [place], [address], 11/19/2023 19:15:40 11/17/19 24 11/17/2023 CBC WITH AUTO- DIFFE RENTI AL RBC 5.31 10*6/ uL 4.20-5 .80 Not Available [facility] [address] [facility] [address], [place], [address], 11/19/2023 19:15:40 11/17/19 24 11/17/2023 CBC WITH AUTO- DIFFE RENTI AL HGB 15.8 g/dL 12.6-1 7.7 Not Available [facility] [address] [facility] [address], [place], [address], 11/19/2023 19:15:40 11/17/19 24 11/17/2023 CBC WITH AUTO- DIFFE RENTI AL HCT 50.0 % 37.5-5 1.0 Consi stent with previ ous resul t Not Available [facility] [address] [facility] [address], [place], [address], 11/19/2023 19:15:40 11/17/19 24 11/17/2023 CBC WITH AUTO- DIFFE RENTI AL MCV 94 fL 79-97 Not Available [facility] [address] [facility] [address], [place], [address], 11/19/2023 19:15:40 11/17/1919 1111/17/2023 CBC WITH AUTO- DIFFE RENTI AL MCH 29.8 pg 26.6-3 3.0 Not Available [facility] [address] [facility] [address], [place], [address], 11/19/2023 19:15:40 11/17/19 24 11/17/2023 CBC WITH AUTO- DIFFE RENTI AL MCHC 31.6 g/dL 31.5-3 5.7 Not Available [facility] [address] [facility] [address], [place], [address], 11/19/2023 19:15:40 11/17/19 24 11/17/2023 CBC WITH AUTO- DIFFE RENTI AL RDW 14.3 % 11.5-1 4.5 Not Available [facility] [address] [facility] [address], [place], [address], 11/19/2023 19:15:40 11/17/19 24 11/17/2023 CBC WITH AUTO- DIFFE RENTI AL platelets 179 10*3/ uL 150-40 0 Not Available [facility] [address] [facility] [address], [place], [address], 11/19/2023 19:15:40 11/17/19 24 11/17/2023 CBC WITH AUTO- DIFFE RENTI AL MPV 11 fL 9-13 Not Available [facility] [address] [facility] [address], [place], [address], 11/19/2023 19:15:40 11/17/19 24 11/17/2023 CBC WITH AUTO- DIFFE RENTI AL neutrophils 51.8 % 40.0-7 4.0 Not Available [facility] [address] [facility] [address], [place], [address], 11/19/2023 19:15:40 11/17/19 24 11/17/2023 CBC WITH AUTO- DIFFE RENTI AL absolute neutrophils 2.49 10*3/ uL 1.40-7 .00 Not Available [facility] [address] [facility] [address], [place], [address], 11/19/2023 19:15:40 11/17/19 24 11/17/2023 CBC WITH AUTO- DIFFE RENTI AL lymphocytes 32.2 % 14.0-4 6.0 Not Available [facility] [address] [facility] [address], [place], [address], 11/19/2023 19:15:40 11/17/19 24 11/17/2023 CBC WITH AUTO- DIFFE RENTI AL absolute lymphocytes 1.55 10*3/ uL 0.70-3 .10 Not Available [facility] [address] [facility] [address], [place], [address], 11/19/2023 19:15:40 11/17/19 24 11/17/2023 CBC WITH AUTO- DIFFE RENTI AL monocytes 10.6 % 4.0-12 .0 Not Available [facility] [address] [facility] [address], [place], [address], 11/19/2023 19:15:40 11/17/19 24 11/17/2023 CBC WITH AUTO- DIFFE RENTI AL absolute monocytes 0.51 10*3/ uL 0.10-0 .90 Not Available [facility] [address] [facility] [address], [place], [address], 11/19/2023 19:15:40 11/17/19 24 11/17/2023 CBC WITH AUTO- DIFFE RENTI AL eosinophils 4.2 % 0.0-5. 0 Not Available [facility] [address] [place] [address] [address], [place], [address], 11/19/2023 19:15:40 11/17/19 24 11/17/2023 CBC WITH AUTO- DIFFE RENTI AL absolute eosinophils 0.20 10*3/ uL 0.00-0 .40 Not Available [address], [place], [address], 11/19/2023 19:15:40 11/17/19 24 11/17/2023 CBC WITH AUTO- DIFFE RENTI AL basophils 1.0 % 0.0-3. 0 Not Available [facility] [address] [facility] [address], [place], [address], 11/19/2023 19:15:40 11/17/19 24 11/17/2023 CBC WITH AUTO- DIFFE RENTI AL absolute basophils 0.05 10*3/ uL 0.00-0 .20 Not Available [facility] [address] [facility] [address], [place], [address], 11/19/2023 19:15:40 11/17/19 24 11/17/2023 CBC WITH AUTO- DIFFE RENTI AL imm. gran. 0.2 % 0.0-2. 0 Not Available [facility] [address] [facility] [address], [place], [address], 11/19/2023 19:15:40 11/17/19 24 11/17/2023 CBC WITH AUTO- DIFFE RENTI AL abs. imm. gran. 0.01 10*3/ uL 0.00-0 .10 Not Available [facility] [address] [facility] [address], [place], [address], 11/19/2023 19:15:40 11/17/19 24 11/17/2023 COMPR EHENS LISA METAB OLIC PANEL sodium 144 mmol/ L 134-14 4 Not Available [facility] [address] [place] [address] [address], [place], [address], 11/19/2023 19:15:41 11/17/19 24 11/17/2023 COMPR EHENS LISA METAB OLIC PANEL potassium 4.4 mmol/ L 3.5-5. 2 Not Available [facility] [address] [place] [address] [address], [place], [address], 11/19/2023 19:15:41 11/17/19 24 11/17/2023 COMPR EHENS LISA METAB OLIC PANEL chloride 108 mmol/ L 97-108 Not Available [facility] [address] [facility] [address], [place], [address], 11/19/2023 19:15:41 11/17/19 24 11/17/2023 COMPR EHENS LISA METAB OLIC PANEL carbon dioxide (co2) 27.0 mmol/ L 18.0-2 9.0 Not Available [facility] [address] [facility] [address], [place], [address], 11/19/2023 19:15:41 11/17/19 24 11/17/2023 COMPR EHENS LISA METAB OLIC PANEL glucose 116 mg/dL 65-99 high Jessika l Fasti ng: < 100 mg/dL Impai red Fasti n - 125 mg/dL Diagn ostic of Diabe jory: => 126 mg/dL Ameri can Diabe jory Ass[employer] iatio n, 2008 Not Available [facility] [address] [facility] [address], [place], [address], 11/19/2023 19:15:41 11/17/19 24 11/17/2023 COMPR EHENS LISA METAB OLIC PANEL urea nitrogen (BUN) 17 mg/dL 8-23 Not Available [facility] [address] [facility] [address], [place], [address], 11/19/2023 19:15:41 11/17/19 24 11/17/2023 COMPR EHENS LISA METAB OLIC PANEL creatinine 1.32 mg/dL 0.76-1 .27 high Not Available [facility] [address] [facility] [address], [place], [address], 11/19/2023 19:15:41 11/17/19 24 11/17/2023 COMPR EHENS LISA METAB OLIC PANEL eGFR for nonafrican AM 55 mL/mi nute/ 1.73_ m2 >59 low Not Available [facility] [address] [facility] [address], [place], [address], 11/19/2023 19:15:41 11/17/19 24 11/17/2023 COMPR EHENS LISA METAB OLIC PANEL eGFR for AM 66 mL/mi nute/ 1.73_ m2 >59 MDRD Study Equat ion: The calcu lated GFR is NOT appli cable for pedia tric (< 18 years old) and > 70 year old patie nts and patie nts that are NOT of stead y state . Not Available [facility] [address] [facility] [address], [place], [address], 11/19/2023 19:15:41 11/17/19 24 11/17/2023 COMPR EHENS LISA METAB OLIC PANEL calcium 9.6 mg/dL 8.6-10 .2 Not Available [facility] [address] [facility] [address], [place], [address], 11/19/2023 19:15:41 11/17/19 24 11/17/2023 COMPR EHENS LISA METAB OLIC PANEL protein, total 7.9 gm/dL 6.4-8. 3 Not Available [facility] [address] [facility] [address], [place], [address], 11/19/2023 19:15:41 11/17/19 24 11/17/2023 COMPR EHENS LISA METAB OLIC PANEL albumin 4.5 gm/dL 3.5-5. 2 Not Available [facility] [address] [facility] [address], [place], [address], 11/19/2023 19:15:41 11/17/19 24 11/17/2023 COMPR EHENS LISA METAB OLIC PANEL bilirubin, total 0.50 mg/dL 0.00-1 .20 Not Available [facility] [address] [facility] [address], [place], [address], 11/19/2023 19:15:41 11/17/19 24 11/17/2023 COMPR EHENS LISA METAB OLIC PANEL alkaline phosphatase (ALP) 104 U/L 39-117 Not Available [facility] [address] [facility] [address], [place], [address], 11/19/2023 19:15:41 11/17/19 24 11/17/2023 COMPR EHENS LISA METAB OLIC PANEL aspartate aminotransfe rase (AST) 19 U/L 0-40 Not Available [facility] [address] [facility] [address], [place], [address], 11/19/2023 19:15:41 11/17/19 24 11/17/2023 COMPR EHENS LISA METAB OLIC PANEL alanine aminotransfe rase (ALT) 36 U/L 0-41 Not Available [facility] [address] [facility] [address], [place], [address], 11/19/2023 19:15:41 11/17/19 24 11/17/2023 COMPR EHENS LISA METAB OLIC PANEL A/G ratio (calculated) 1.3 ratio 1.0-2. 7 Not Available [facility] [address] [facility] [address], [place], [address], 11/19/2023 19:15:41 11/17/19 24 11/17/2023 COMPR EHENS LISA METAB OLIC PANEL globulin (calculated) 3.4 gm/dL 1.5-3. 8 Not Available [facility] [address] [place] [address] [address], [place], [address], 11/19/2023 19:15:41 11/17/19 24 11/17/2023 COMPR EHENS LISA METAB OLIC PANEL BUN/creatini ne ratio (calculated) 12.9 ratio 8.0-20 .0 Not Available [address], [place], [address], 11/19/2023 19:15:41 11/17/19 24 11/17/2023 COMPR EHENS LISA METAB OLIC PANEL serum hemolysis index NORMAL index normal Not Available [facility] [address], [place], [address], 11/19/2023 19:15:41 11/17/19 24 11/17/2023 MILEA GE UNDER 20 [I] [id number] EMPTY Not Available [facility] [address], [place], [address], 11/19/2023 19:15:41 06/14/20 24 06/14/2024 cathie metry testi ng* Spirometry Not Available [facility], [address], [place], [address], 06/08/2024 11:05:17 08/19/19 25 08/19/2024 HEMOG LOBIN A1C hemoglobin A1C 6.2 % 4.8-5. 6 high JESSIKA L RANGE BASED ON AJIT COL 2 (DCCT /NGSP ): Non-D iabet ic: < 5.7% Pre-D iabet es: 5.7 - 6.4% Diabe jory: => 6.5% GLYCE KELSEY CONTR OL: < 7.0% Not Available [facility] [address], [place], [address], 08/20/2024 20:49:10 08/19/19 25 08/19/2024 HEMOG LOBIN A1C estimated average glucose 131 Not Available [facility] [address], [place], [address], 08/20/2024 20:49:10 08/19/19 25 08/19/2024 CBC WITH AUTO- DIFFE RENTI AL WBC 5.1 10*3/ uL 3.4-10 .8 Not Available [facility] [address], [place], [address], 08/20/2024 20:49:11 08/19/19 25 08/19/2024 CBC WITH AUTO- DIFFE RENTI AL RBC 5.04 10*6/ uL 4.20-5 .80 Not Available [facility] [address], [place], [address], 08/20/2024 20:49:11 08/19/19 25 08/19/2024 CBC WITH AUTO- DIFFE RENTI AL HGB 15.1 g/dL 12.6-1 7.7 Not Available [facility] [address] [facility] [address], [place], [address], 08/20/2024 20:49:11 08/19/19 25 08/19/2024 CBC WITH AUTO- DIFFE RENTI AL HCT 44.7 % 37.5-5 1.0 Not Available [facility] [address] [facility] [address], [place], [address], 08/20/2024 20:49:11 08/19/19 25 08/19/2024 CBC WITH AUTO- DIFFE RENTI AL MCV 89 fL 79-97 Not Available [facility] [address] [facility] [address] [address], [place], [address], 08/20/2024 20:49:11 08/19/19 25 08/19/2024 CBC WITH AUTO- DIFFE RENTI AL MCH 30.0 pg 26.6-3 3.0 Not Available [facility] [address] [facility] [address], [place], [address], 08/20/2024 20:49:11 08/19/19 25 08/19/2024 CBC WITH AUTO- DIFFE RENTI AL MCHC 33.8 g/dL 31.5-3 5.7 Not Available [facility] [address] [facility] [address], [place], [address], 08/20/2024 20:49:11 08/19/19 25 08/19/2024 CBC WITH AUTO- DIFFE RENTI AL RDW 13.6 % 11.5-1 4.5 Not Available [facility] [address] [facility] [address], [place], [address], 08/20/2024 20:49:11 08/19/19 25 08/19/2024 CBC WITH AUTO- DIFFE RENTI AL platelets 164 10*3/ uL 150-40 0 Not Available [facility] [address] [place] [address] [address], [place], [address], 08/20/2024 20:49:11 08/19/19 25 08/19/2024 CBC WITH AUTO- DIFFE RENTI AL MPV 11 fL 9-13 Not Available [facility] [address] [facility] [address], [place], [address], 08/20/2024 20:49:11 08/19/19 25 08/19/2024 CBC WITH AUTO- DIFFE RENTI AL neutrophils 47.2 % 40.0-7 4.0 Not Available [facility] [address] [facility] [address], [place], [address], 08/20/2024 20:49:11 08/19/19 25 08/19/2024 CBC WITH AUTO- DIFFE RENTI AL absolute neutrophils 2.41 10*3/ uL 1.40-7 .00 Not Available [address], [place], [address], 08/20/2024 20:49:11 08/19/19 25 08/19/2024 CBC WITH AUTO- DIFFE RENTI AL lymphocytes 35.3 % 14.0-4 6.0 Not Available [facility] [address] [facility] [address], [place], [address], 08/20/2024 20:49:11 08/19/19 25 08/19/2024 CBC WITH AUTO- DIFFE RENTI AL absolute lymphocytes 1.80 10*3/ uL 0.70-3 .10 Not Available [place] [address] [facility] [address], [place], [address], 08/20/2024 20:49:11 08/19/19 25 08/19/2024 CBC WITH AUTO- DIFFE RENTI AL monocytes 12.2 % 4.0-12 .0 high Not Available [facility] [address] [facility] [address], [place], [address], 08/20/2024 20:49:11 08/19/19 25 08/19/2024 CBC WITH AUTO- DIFFE RENTI AL absolute monocytes 0.62 10*3/ uL 0.10-0 .90 Not Available [facility] [address] [facility] [address], [place], [address], 08/20/2024 20:49:11 08/19/19 25 08/19/2024 CBC WITH AUTO- DIFFE RENTI AL eosinophils 4.1 % 0.0-5. 0 Not Available [facility] [address] [facility] [address], [place], [address], 08/20/2024 20:49:11 08/19/19 25 08/19/2024 CBC WITH AUTO- DIFFE RENTI AL absolute eosinophils 0.21 10*3/ uL 0.00-0 .40 Not Available [facility] [address] [facility] [address], [place], [address], 08/20/2024 20:49:11 08/19/19 25 08/19/2024 CBC WITH AUTO- DIFFE RENTI AL basophils 1.0 % 0.0-3. 0 Not Available [facility] [address] [facility] [address], [place], [address], 08/20/2024 20:49:11 08/19/19 25 08/19/2024 CBC WITH AUTO- DIFFE RENTI AL absolute basophils 0.05 10*3/ uL 0.00-0 .20 Not Available [facility] [address] [facility] [address], [place], [address], 08/20/2024 20:49:11 08/19/19 25 08/19/2024 CBC WITH AUTO- DIFFE RENTI AL imm. gran. 0.2 % 0.0-2. 0 Not Available [facility] [address] [facility] [address], [place], [address], 08/20/2024 20:49:11 08/19/19 25 08/19/2024 CBC WITH AUTO- DIFFE RENTI AL abs. imm. gran. 0.01 10*3/ uL 0.00-0 .10 Not Available [facility] [address] [facility] [address], [place], [address], 08/20/2024 20:49:11 08/19/19 25 08/19/2024 COMPR EHENS LISA METAB OLIC PANEL sodium 142 mmol/ L 134-14 4 Not Available [facility] [address] [facility] [address], [place], [address], 08/20/2024 20:49:11 08/19/19 25 08/19/2024 COMPR EHENS LISA METAB OLIC PANEL potassium 4.1 mmol/ L 3.5-5. 2 Not Available [facility] [address] [facility] [address], [place], [address], 08/20/2024 20:49:11 08/19/19 25 08/19/2024 COMPR EHENS LISA METAB OLIC PANEL chloride 106 mmol/ L 98-107 Not Available [facility] [address] [facility] [address], [place], [address], 08/20/2024 20:49:11 08/19/19 25 08/19/2024 COMPR EHENS LISA METAB OLIC PANEL carbon dioxide (co2) 26.0 mmol/ L 18.0-2 9.0 Not Available [facility] [address] [facility] [address], [place], [address], 08/20/2024 20:49:11 08/19/19 25 08/19/2024 COMPR EHENS LISA METAB OLIC PANEL glucose 102 mg/dL 65-99 high Jessika l Fasti n - 99 mg/dL Impai red Fasti n - 125 mg/dL Diagn ostic of Diabe jory: => 126 mg/dL Ameri can Diabe jory Assoc iatio n, 2007 Not Available [facility] [address] [facility] [address], [place], [address], 08/20/2024 20:49:11 08/19/19 25 08/19/2024 COMPR EHENS LISA METAB OLIC PANEL urea nitrogen (BUN) 13 mg/dL 8-23 Not Available [facility] [address] [facility] [address], [place], [address], 08/20/2024 20:49:11 08/19/19 25 08/19/2024 COMPR EHENS LISA METAB OLIC PANEL creatinine 1.15 mg/dL 0.76-1 .27 Not Available [facility] [address] [facility] [address], [place], [address], 08/20/2024 20:49:11 08/19/19 25 08/19/2024 COMPR EHENS LISA METAB OLIC PANEL eGFR 71 mL/mi nute/ 1.73_ m2 >59 MDRD Study Equat ion: The calcu lated GFR is NOT appli cable for pedia tric (< 18 years old) and > 70 year old patie nts and patie nts that are NOT of stead y state . Not Available [facility] [address] [facility] [address], [place], [address], 08/20/2024 20:49:11 08/19/19 25 08/19/2024 COMPR EHENS LISA METAB OLIC PANEL calcium 9.5 mg/dL 8.6-10 .2 Not Available [facility] [address] [facility] [address], [place], [address], 08/20/2024 20:49:11 08/19/19 25 08/19/2024 COMPR EHENS LISA METAB OLIC PANEL protein, total 6.8 gm/dL 6.4-8. 3 Not Available [facility] [address] [facility] [address], [place], [address], 08/20/2024 20:49:11 08/19/19 25 08/19/2024 COMPR EHENS LISA METAB OLIC PANEL albumin 4.3 gm/dL 3.5-5. 2 Not Available [facility] [address] [facility] [address], [place], [address], 08/20/2024 20:49:11 08/19/19 25 08/19/2024 COMPR EHENS LISA METAB OLIC PANEL bilirubin, total 1.10 mg/dL 0.00-1 .20 Not Available [facility] [address] [facility] [address], [place], [address], 08/20/2024 20:49:11 08/19/19 25 08/19/2024 COMPR EHENS LISA METAB OLIC PANEL alkaline phosphatase (ALP) 88 U/L 39-117 Not Available [facility] [address] [facility] [address], [place], [address], 08/20/2024 20:49:11 08/19/19 25 08/19/2024 COMPR EHENS LISA METAB OLIC PANEL aspartate aminotransfe rase (AST) 24 U/L 0-40 Not Available [facility] [address] [facility] [address], [place], [address], 08/20/2024 20:49:11 08/19/19 25 08/19/2024 COMPR EHENS LISA METAB OLIC PANEL alanine aminotransfe rase (ALT) 42 U/L 0-41 high Not Available [facility] [address] [facility] [address], [place], [address], 08/20/2024 20:49:11 08/19/19 25 08/19/2024 COMPR EHENS LISA METAB OLIC PANEL A/G ratio (calculated) 1.7 ratio 1.0-2. 7 Not Available [facility] [address] [facility] [address], [place], [address], 08/20/2024 20:49:11 08/19/19 25 08/19/2024 COMPR EHENS LISA METAB OLIC PANEL globulin (calculated) 2.5 gm/dL 1.5-3. 8 Not Available [facility] [address] [facility] [address], [place], [address], 08/20/2024 20:49:11 08/19/19 25 08/19/2024 COMPR EHENS LISA METAB OLIC PANEL BUN/creatini ne ratio (calculated) 11.3 ratio 8.0-20 .0 Not Available [facility] [address] [facility] [address], [place], [address], 08/20/2024 20:49:11 08/19/19 25 08/19/2024 COMPR EHENS LISA METAB OLIC PANEL serum hemolysis index Normal index normal Not Available [facility] [address] [facility] [address], [place], [address], 08/20/2024 20:49:11 08/19/19 25 08/19/2024 LIPID PANEL W/ CALC. LDL cholesterol, total 126 mg/dL 100-19 9 Not Available [facility] [address] [facility] [address], [place], [address], 08/20/2024 20:49:12 08/19/19 25 08/19/2024 LIPID PANEL W/ CALC. LDL HDL cholesterol 32 mg/dL =>40 Not Available [facility] [address] [facility] [address], [place], [address], 08/20/2024 20:49:12 08/19/19 25 08/19/2024 LIPID PANEL W/ CALC. LDL LDL cholesterol (calculated) 76 mg/dL 0-[address] [facility] [address] [facility] [address], [place], [address], 08/20/2024 20:49:12 08/19/19 25 08/19/2024 LIPID PANEL W/ CALC. LDL triglyceride s 90 mg/dL 50-149 Not Available [facility] [address] [facility] [address], [place], [address], 08/20/2024 20:49:12 08/19/19 25 08/19/2024 LIPID PANEL W/ CALC. LDL chol/HDL ratio (calculated) 3.94 ratio 0.00-5 .00 Not Available [facility] [address] [facility] [address], [place], [address], 08/20/2024 20:49:12 08/19/19 25 08/19/2024 LIPID PANEL W/ CALC. LDL VLDL cholesterol (calculated) 18 mg/dL 5-[address] [facility] [address] [facility] [address], [place], [address], 08/20/2024 20:49:12 08/19/19 25 08/19/2024 PROST ATE-S PECIF IC ANTIG EN (PSA) , TOTAL (DIAG NOSTI C) prostate-spe cific antigen, total 2.1 NG/mL 0.0-4. 0 Zac ECLIA METHO DOLOG Y. RESUL TS FROM THIS METHO D IS NOT SARAH TIBLE WITH DIFFE RENT ASSAY METHO D AND CANNO T BE USED INTER POWELL EABLY . Not Available [facility] [address] [facility] [address], [place], [address], 08/20/2024 20:49:13 08/19/19 25 08/19/2024 GLUCO SE ASHLEY ANCE TEST (GTT) , 3-LISA R glucose tolerance test, fasting 102 mg/dL 65-99 high Not Available [facility] [address] [facility] [address], [place], [address], 08/20/2024 20:49:13 08/19/19 25 08/19/2024 GLUCO SE ASHLEY ANCE TEST (GTT) , 3-LISA R glucose tolerance test, 1 hour 164 mg/dL 65-[address] [facility] [address] [facility] [address], [place], [address], 08/20/2024 20:49:13 08/19/19 25 08/19/2024 GLUCO SE ASHLEY ANCE TEST (GTT) , 3-LISA R glucose tolerance test, 2 hour 132 mg/dL 65-[address] [facility] [address] [facility] [address], [place], [address], 08/20/2024 20:49:13 08/19/19 25 08/19/2024 GLUCO SE ASHLEY ANCE TEST (GTT) , 3-LISA R glucose tolerance test, 3 hour 116 mg/dL 65-[address] [facility] [address] [facility] [address], [place], [address], 08/20/2024 20:49:13 08/19/19 25 08/19/2024 GLUCO SE ASHLEY ANCE TEST (GTT) , 3-LISA R serum hemolysis index Normal index normal Not Available [facility] [address] [facility] [address], [place], [address], 08/20/2024 20:49:13 08/19/19 25 08/19/2024 GLUCO SE ASHLEY ANCE TEST (GTT) , 3-LISA R glucose tolerance test, fasting 102 mg/dL 65-99 high Not Available [facility] [address] [facility] [address], [place], [address], 08/20/2024 20:49:13 08/19/19 25 08/19/2024 GLUCO SE ASHLEY ANCE TEST (GTT) , 3-LISA R glucose tolerance test, 1 hour 164 mg/dL 65-[address] [facility] [address] [facility] [address], [place], [address], 08/20/2024 20:49:13 08/19/19 25 08/19/2024 GLUCO SE ASHLEY ANCE TEST (GTT) , 3-LISA R glucose tolerance test, 2 hour 132 mg/dL 65-[address] [facility] [address] [facility] [address], [place], [address], 08/20/2024 20:49:13 08/19/19 25 08/19/2024 GLUCO SE ASHLEY ANCE TEST (GTT) , 3-LISA R glucose tolerance test, 3 hour 116 mg/dL 65-[address] [facility] [address] [facility] [address], [place], [address], 08/20/2024 20:49:13 08/19/19 25 08/19/2024 GLUCO SE ASHLEY ANCE TEST (GTT) , 3-LISA R serum hemolysis index Normal index normal Not Available [facility] [address] [facility] [address], [place], [address], 08/20/2024 20:49:13 08/19/19 25 08/19/2024 GLUCO SE ASHLEY ANCE TEST (GTT) , 3-LISA R glucose tolerance test, fasting 102 mg/dL 65-99 high Not Available [facility] [address] [facility] [address], [place], [address], 08/20/2024 20:49:13 08/19/19 25 08/19/2024 GLUCO SE ASLHEY ANCE TEST (GTT) , 3-LISA R glucose tolerance test, 1 hour 164 mg/dL 65-[address] [facility] [address] [facility] [address], [place], [address], 08/20/2024 20:49:13 08/19/19 25 08/19/2024 GLUCO SE ASHLEY ANCE TEST (GTT) , 3-LISA R glucose tolerance test, 2 hour 132 mg/dL 65-[address] [facility] [address] [facility] [address], [place], [address], 08/20/2024 20:49:13 08/19/19 25 08/19/2024 GLUCO SE ASHLEY ANCE TEST (GTT) , 3-LISA R glucose tolerance test, 3 hour 116 mg/dL 65-[address] [facility] [address] [facility] [address], [place], [address], 08/20/2024 20:49:13 08/19/19 25 08/19/2024 GLUCO SE ASHLEY ANCE TEST (GTT) , 3-LISA R serum hemolysis index Normal index normal Not Available [facility] [address] [facility] [address], [place], [address], 08/20/2024 20:49:13 08/19/19 25 08/19/2024 GLUCO SE ASHLEY ANCE TEST (GTT) , 3-LISA R glucose tolerance test, fasting 102 mg/dL 65-99 high Not Available [facility] [address] [facility] [address], [place], [address], 08/20/2024 20:49:13 08/19/19 25 08/19/2024 GLUCO SE ASHLEY ANCE TEST (GTT) , 3-LISA R glucose tolerance test, 1 hour 164 mg/dL 65-[address] [facility] [address] [facility] [address], [place], [address], 08/20/2024 20:49:13 08/19/19 25 08/19/2024 GLUCO SE ASHLEY ANCE TEST (GTT) , 3-LISA R glucose tolerance test, 2 hour 132 mg/dL 65-[address] [facility] [address] [facility] [address], [place], [address], 08/20/2024 20:49:13 08/19/19 25 08/19/2024 GLUCO SE ASHLEY ANCE TEST (GTT) , 3-LISA R glucose tolerance test, 3 hour 116 mg/dL 65-[address] [facility] [address] [address], [place], [address], 08/20/2024 20:49:13 08/19/19 25 08/19/2024 GLUCO SE ASHLEY ANCE TEST (GTT) , 3-LISA R serum hemolysis index Normal index normal Not Available [facility] [address] [facility] [address], [place], [address], 08/20/2024 20:49:13 08/19/19 25 08/19/2024 MICRO ALBUM IN:CR EATIN INE RATIO , RANDO M URINE microalbumin , urine 7.57 mcg/m L not applic able Not Available [facility] [address] [facility] [address], [place], [address], 08/20/2024 20:49:13 08/19/19 25 08/19/2024 MICRO ALBUM IN:CR EATIN INE RATIO , RANDO M URINE creatinine, urine 570.3 mg/dL not applic able Not Available [facility] [id number] [facility] [address], [place], [address], 08/20/2024 20:49:13 08/19/19 25 08/19/2024 MICRO ALBUM IN:CR EATIN INE RATIO , RANDO M URINE microalbumin :creatinine ratio, random urine (calculated) 13.3 mg/gm _crea t. Jessika l: 0-29 mg/gm Moder ately incre ased: 30-30 0 mg/gm Sever ly incre ased: >300 mg/gm Not Available [facility] [id number] [facility] [address], [place], [address], 08/20/2024 20:49:13 02/16/20 25 02/15/2025 HEMOG LOBIN A1C hemoglobin A1C 5.9 % 4.8-5. 6 high JESSIKA L RANGE BASED ON AJIT COL 2 (DCCT /NGSP ): Non-D iabet ic: < 5.7% Pre-D iabet es: 5.7 - 6.4% Diabe jory: => 6.5% GLYCE KELSEY CONTR OL: < 7.0% Not Available [facility] [address], [place], [address], 02/16/2025 14:52:16 02/16/20 25 02/15/2025 HEMOG LOBIN A1C estimated average glucose 122 Not Available [facility] [address], [place], [address], 02/16/2025 14:52:16 02/16/20 25 02/15/2025 CBC WITH AUTO- DIFFE RENTI AL WBC 4.4 10*3/ uL 3.4-10 .8 Not Available [facility] [address], [place], [address], 02/16/2025 14:52:17 02/16/20 25 02/15/2025 CBC WITH AUTO- DIFFE RENTI AL RBC 4.78 10*6/ uL 4.20-5 .80 Not Available [facility] [address], [place], [address], 02/16/2025 14:52:17 02/16/20 25 02/15/2025 CBC WITH AUTO- DIFFE RENTI AL HGB 14.4 g/dL 12.6-1 7.7 Not Available [facility] [address], [place], [address], 02/16/2025 14:52:17 02/16/20 25 02/15/2025 CBC WITH AUTO- DIFFE RENTI AL HCT 43.5 % 37.5-5 1.0 Not Available [facility] [address], [place], [address], 02/16/2025 14:52:17 02/16/20 25 02/15/2025 CBC WITH AUTO- DIFFE RENTI AL MCV 91 fL 79-97 Not Available [facility] [address], [place], [address], 02/16/2025 14:52:17 02/16/20 25 02/15/2025 CBC WITH AUTO- DIFFE RENTI AL MCH 30.1 pg 26.6-3 3.0 Not Available [facility] [address] [facility] [address], [place], [address], 02/16/2025 14:52:17 02/16/20 25 02/15/2025 CBC WITH AUTO- DIFFE RENTI AL MCHC 33.1 g/dL 31.5-3 5.7 Not Available [facility] [address], [place], [address], 02/16/2025 14:52:17 02/16/20 25 02/15/2025 CBC WITH AUTO- DIFFE RENTI AL RDW 13.3 % 11.5-1 4.5 Not Available [facility] [address], [place], [address], 02/16/2025 14:52:17 02/16/20 25 02/15/2025 CBC WITH AUTO- DIFFE RENTI AL platelets 157 10*3/ uL 150-40 0 Not Available [facility] [address], [place], [address], 02/16/2025 14:52:17 02/16/20 25 02/15/2025 CBC WITH AUTO- DIFFE RENTI AL MPV 11 fL 9-13 Not Available [facility] [address], [place], [address], 02/16/2025 14:52:17 02/16/20 25 02/15/2025 CBC WITH AUTO- DIFFE RENTI AL neutrophils 51.7 % 40.0-7 4.0 Not Available [facility] [address], [place], [address], 02/16/2025 14:52:17 02/16/20 25 02/15/2025 CBC WITH AUTO- DIFFE RENTI AL absolute neutrophils 2.26 10*3/ uL 1.40-7 .00 Not Available [facility] [address] [facility] [address], [place], [address], 02/16/2025 14:52:17 02/16/20 25 02/15/2025 CBC WITH AUTO- DIFFE RENTI AL lymphocytes 31.7 % 14.0-4 6.0 Not Available [facility] [address] [facility] [address], [place], [address], 02/16/2025 14:52:17 02/16/2002/15/2025 CBC WITH AUTO- DIFFE RENTI AL absolute lymphocytes 1.39 10*3/ uL 0.70-3 .10 Not Available [facility] [address] [facility] [address], [place], [address], 02/16/2025 14:52:17 02/16/20 25 02/15/2025 CBC WITH AUTO- DIFFE RENTI AL monocytes 11.2 % 4.0-12 .0 Not Available [facility] [address] [facility] [address], [place], [address], 02/16/2025 14:52:17 02/16/20 25 02/15/2025 CBC WITH AUTO- DIFFE RENTI AL absolute monocytes 0.49 10*3/ uL 0.10-0 .90 Not Available [facility] [address] [facility] [address], [place], [address], 02/16/2025 14:52:17 02/16/20 25 02/15/2025 CBC WITH AUTO- DIFFE RENTI AL eosinophils 4.3 % 0.0-5. 0 Not Available [facility] [address] [facility] [address], [place], [address], 02/16/2025 14:52:17 02/16/20 25 02/15/2025 CBC WITH AUTO- DIFFE RENTI AL absolute eosinophils 0.19 10*3/ uL 0.00-0 .40 Not Available [facility] [address] [facility] [address], [place], [address], 02/16/2025 14:52:17 02/16/20 25 02/15/2025 CBC WITH AUTO- DIFFE RENTI AL basophils 0.9 % 0.0-3. 0 Not Available [facility] [address] [facility] [address], [place], [address], 02/16/2025 14:52:17 02/16/20 25 02/15/2025 CBC WITH AUTO- DIFFE RENTI AL absolute basophils 0.04 10*3/ uL 0.00-0 .20 Not Available [facility] [address] [facility] [address], [place], [address], 02/16/2025 14:52:17 02/16/20 25 02/15/2025 CBC WITH AUTO- DIFFE RENTI AL imm. gran. 0.2 % 0.0-2. 0 Not Available [facility] [address] [facility] [address], [place], [address], 02/16/2025 14:52:17 02/16/20 25 02/15/2025 CBC WITH AUTO- DIFFE RENTI AL abs. imm. gran. 0.01 10*3/ uL 0.00-0 .10 Not Available [facility] [address] [facility] [address], [place], [address], 02/16/2025 14:52:17 02/16/20 25 02/15/2025 COMPR EHENS LISA METAB OLIC PANEL sodium 143 mmol/ L 134-14 4 Not Available [facility] [address] [facility] [address], [place], [address], 02/16/2025 14:52:17 02/16/20 25 02/15/2025 COMPR EHENS LISA METAB OLIC PANEL potassium 4.0 mmol/ L 3.5-5. 2 Not Available [facility] [address] [facility] [address], [place], [address], 02/16/2025 14:52:17 02/16/2002/15/2025 COMPR EHENS LISA METAB OLIC PANEL chloride 105 mmol/ L 98-107 Not Available [facility] [address] [facility] [address], [place], [address], 02/16/2025 14:52:17 02/16/2002/15/2025 COMPR EHENS LISA METAB OLIC PANEL carbon dioxide (co2) 24.0 mmol/ L 18.0-2 9.0 Not Available [facility] [address] [facility] [address], [place], [address], 02/16/2025 14:52:17 02/16/2002/15/2025 COMPR EHENS LISA METAB OLIC PANEL glucose 97 mg/dL 65-99 Jessika l Fasti n - 99 mg/dL Impai red Fasti n - 125 mg/dL Diagn ostic of Diabe jory: => 126 mg/dL Ameri can Diabe jory Ass[facility] iatio n, 2007 Not Available [facility] [address] [facility] [address], [place], [address], 02/16/2025 14:52:17 02/16/2002/15/2025 COMPR EHENS LISA METAB OLIC PANEL urea nitrogen (BUN) 13 mg/dL 8-23 Not Available [facility] [address] [facility] [address], [place], [address], 02/16/2025 14:52:17 02/16/2002/15/2025 COMPR EHENS LISA METAB OLIC PANEL creatinine 0.96 mg/dL 0.76-1 .27 Not Available [facility] [address] [facility] [address], [place], [address], 02/16/2025 14:52:17 02/16/2002/15/2025 COMPR EHENS LISA METAB OLIC PANEL eGFR 88 mL/mi nute/ 1.73_ m2 >59 MDRD Study Equat ion: The calcu lated GFR is NOT appli cable for pedia tric (< 18 years old) and > 70 year old patie nts and patie nts that are NOT of stead y state . Not Available [facility] [address] [facility] [address], [place], [address], 02/16/2025 14:52:17 02/16/2002/15/2025 COMPR EHENS LISA METAB OLIC PANEL calcium 9.4 mg/dL 8.6-10 .2 Not Available [facility] [address] [facility] [address], [place], [address], 02/16/2025 14:52:17 02/16/20 25 02/15/2025 COMPR EHENS LISA METAB OLIC PANEL protein, total 6.8 gm/dL 6.4-8. 3 Not Available [facility] [address] [facility] [address], [place], [address], 02/16/2025 14:52:17 02/16/20 25 02/15/2025 COMPR EHENS LISA METAB OLIC PANEL albumin 4.3 gm/dL 3.5-5. 2 Not Available [facility] [address] [facility] [address], [place], [address], 02/16/2025 14:52:17 02/16/2002/15/2025 COMPR EHENS LISA METAB OLIC PANEL bilirubin, total 0.70 mg/dL 0.00-1 .20 Not Available [facility] [address] [facility] [address], [place], [address], 02/16/2025 14:52:17 02/16/20 25 02/15/2025 COMPR EHENS LISA METAB OLIC PANEL alkaline phosphatase (ALP) 80 U/L 39-117 Not Available [facility] [address] [facility] [address], [place], [address], 02/16/2025 14:52:17 02/16/20 25 02/15/2025 COMPR EHENS LISA METAB OLIC PANEL aspartate aminotransfe rase (AST) 18 U/L 0-40 Not Available [facility] [address] [facility] [address], [place], [address], 02/16/2025 14:52:17 02/16/20 25 02/15/2025 COMPR EHENS LISA METAB OLIC PANEL alanine aminotransfe rase (ALT) 26 U/L 0-41 Not Available [facility] [address] [facility] [address], [place], [address], 02/16/2025 14:52:17 02/16/20 25 02/15/2025 COMPR EHENS LISA METAB OLIC PANEL A/G ratio (calculated) 1.7 ratio 1.0-2. 7 Not Available [facility] [address] [facility] [address], [place], [address], 02/16/2025 14:52:17 02/16/20 25 02/15/2025 COMPR EHENS LISA METAB OLIC PANEL globulin (calculated) 2.5 gm/dL 1.5-3. 8 Not Available [facility] [address] [facility] [address], [place], [address], 02/16/2025 14:52:17 02/16/20 25 02/15/2025 COMPR EHENS LISA METAB OLIC PANEL BUN/creatini ne ratio (calculated) 13.5 ratio 8.0-20 .0 Not Available [facility] [address] [facility] [address], [place], [address], 02/16/2025 14:52:17 02/16/20 25 02/15/2025 COMPR EHENS LISA METAB OLIC PANEL serum index hemolysis Normal index normal Not Available [facility] [address] [facility] [address], [place], [address], 02/16/2025 14:52:17 02/16/20 25 02/15/2025 LIPID PANEL (CHOL ROBERT OL TOTAL , TRIGL YCERI HARLEY, HDL KALPANA STERO L, LDL CHOL. cholesterol, total 140 mg/dL 100-19 9 Not Available [facility] [address] [facility] [address], [place], [address], 02/16/2025 14:52:18 02/16/20 25 02/15/2025 LIPID PANEL (CHOL ROBERT OL TOTAL , TRIGL YCERI HARLEY, HDL KALPANA STERO L, LDL CHOL. HDL cholesterol 34 mg/dL =>40 Not Available [facility] [address] [facility] [address], [place], [address], 02/16/2025 14:52:18 02/16/20 25 02/15/2025 LIPID PANEL (CHOL ROBERT OL TOTAL , TRIGL YCERI HARLEY, HDL KALPANA STERO L, LDL CHOL. LDL cholesterol (calculated) 89 mg/dL 0-99 Not Available [facility] [address] [facility] [address], [place], [address], 02/16/2025 14:52:18 02/16/20 25 02/15/2025 LIPID PANEL (CHOL ROBERT OL TOTAL , TRIGL YCERI HARLEY, HDL KALPANA STERO L, LDL CHOL. triglyceride s 87 mg/dL 50-149 Not Available [facility] [address] [facility] [address], [place], [address], 02/16/2025 14:52:18 02/16/20 25 02/15/2025 LIPID PANEL (CHOL ROBERT OL TOTAL , TRIGL YCERI HARLEY, HDL KALPANA STERO L, LDL CHOL. chol/HDL ratio (calculated) 4.12 ratio 0.00-5 .00 Not Available [facility] [address] [facility] [address], [place], [address], 02/16/2025 14:52:18 02/16/20 25 02/15/2025 LIPID PANEL (CHOL ROBERT OL TOTAL , TRIGL YCERI HARLEY, HDL KALPANA STERO L, LDL CHOL. VLDL cholesterol (calculated) 17 mg/dL 5-40 Not Available [facility] [address] [facility] [address], [place], [address], 02/16/2025 14:52:18 02/16/20 25 02/15/2025 PROST ATE-S PECIF IC ANTIG EN (PSA) , TOTAL (SCRE ENING ) prostate-spe cific antigen, total 2.2 NG/mL 0.0-4. 0 Zac ECLIA METHO DOLOG Y. RESUL TS FROM THIS METHO D IS NOT SARAH TIBLE WITH DIFFE RENT ASSAY METHO D AND CANNO T BE USED INTER POWELL EABLY . Not Available [facility] [address] [facility] [address], [place], [address], 02/16/2025 14:52:19 02/16/20 25 02/15/2025 MICRO ALBUM IN:CR EATIN INE RATIO , RANDO M URINE microalbumin , urine 1.22 mg/dL not establ ished Units have been updat ed to mg/dL Not Available [facility] [address] [facility] [address], [place], [address], 02/16/2025 14:52:19 02/16/20 25 02/15/2025 MICRO ALBUM IN:CR EATIN INE RATIO , RANDO M URINE creatinine, urine 223.0 mg/dL not establ ished Not Available [facility] [address] [facility] [address], [place], [address], 02/16/2025 14:52:19 02/16/20 25 02/15/2025 MICRO ALBUM IN:CR EATIN INE RATIO , RANDO M URINE microalbumin :creatinine ratio, random urine (calculated) 5.5 mg/gm Jessika l: 0-29 mg/gm Moder ately incre ased: 30-30 0 mg/gm Sever ly incre ased: >300 mg/gm Not Available [facility] [address] [facility] [address], [place], [address], 02/16/2025 14:52:19 08/05/19 24 07/27/2023 endos iris sanchez (PROC ) No observ ation record ed. Not Available 2023 17:49:33 08/05/19 24 07/29/2023 colon oscop y outco mes repor ting* No observ ation record ed. Not Available 2023 08:29:12 08/05/19 24 07/27/2023 colon oscop y proce dure (PROC ) No observ ation record ed. Not Available 2023 17:49:33 11/02/19 24 cta chest [facility] [address] [place] [address] Orderi ng Provid er: KAYLA MEZA EXAMIN ATION: CTA CHEST WITH CONTRA ST, DISSEC TION INDICA TION: Aortic aneury sm. COMPAR SOCRATES: CT chest withou t contra st on [...] atted MIPS were constr ucted at [facility] [employer] [facility] stacie reese and review ed. [...] abnorm ality. Ordere d By: KAYLA MEZA [facility] onical ly Signed By: Raffaele loera MD on 11/02/19 12:24 PM Interp reted By: Raffaele loera MD, 11/02/19 12:[address], [place], [address], 11/17/2023 11:01:45 02/19/20 24 02/22/2024 elect rocar diogr am No observ ation record ed. [facility], [address], [place], [address], 02/22/2024 11:17:09 02/19/20 24 02/19/2024 elect roceduarda diogr am No observ ation record ed. [facility], [address], [place], [address], 02/22/2024 11:17:23 03/28/20 24 03/24/2024 CT, abdom en + pelvi s, w/ contr ast No observ ation record ed. [facility] [address], [place], [address], 04/04/2024 13:58:42 06/09/20 24 06/08/2024 cathie metry testi ng* No observ ation record ed. [facility], [address], [place], [address], 06/14/2024 13:48:05 11/03/19 25 use echoc ardio babak W con [facility] [address] [place] [address] Orderi ng Provid er: KAYLA MEZA Echoca rdiogr aphy Report Pat.Na me: BRYANT NIELSEN Pat.ID : [id number]Avinash e: 11/02/19 25 Refer. MD: [id number] PAUL GARZA EWDPRO V EWDPRO V Exam Time: 8:46:0 0 AM Study Type:E CHO WITH CARDIA C DOPPLE R COMP Height : 71 in Weight : 219 lb BSA: 2.19 m2 Age: [birth year],[age]Y Sex: M BP: 123/69 HR: 48 bpm Sonogr phr: Jesus r, Michael n RCS Pat. Stat.: Outpat ient Reason for Study: Mitral regurg itatio n Proced ures: 2D, M-mode , Dopple r, Color Flow, Defini ty was used to enhanc e endoca rdial defini tion. The study qualit y is techni gabby [facility]. Race: B ++++++ ++++++ [...] mm Right Ventri oneyda 28 mm Major Jasper 62 mm MMODE TA Tricus pid Annul 31.6 mm 2024 11:21 AM Kayla meza M.D. [address] [facility], [place], [address], 11/02/2024 21:43:33 11/26/19 25 11/24/2024 CT, head + brain , w/o contr ast No observ ation record ed. [address], [place], [address], 11/29/2024 20:15:44 12/13/19 25 nmens 1d [facility] [address] [place] [address] Orderi ng Provid er: KAYLA MEZA Myocar dial Perfus ion Imagin g Pat.Na me: BRYANT NIELSEN Pat.ID : [id number]: 025 Refer. MD: Kayla Jain [id number] Exam Time: 7:39:0 0 AM Study Type:S EB NC HT MUSCLE IMAGE SPECT MULTI Height : 71 in Weight : 220 lb BSA: 2.2 m2 Age: [birth year],[age]Y Sex: M Sonogr phr: MYKEL Frye Pat. Stat.: Outpat ient Reason for Study: Dyspne a, Abnorm al EKG, Palpit ations , TAA Histor y / Clinic al:Hyp ertens ion, Dyslip idemia , Sleep Apnea Proced ures: Nuclea r Stress Test with Exerci se Race: B Surger y: Echoca rdiogr am, CTA ++++++ ++++++ ++++++ ++++++ ++++++ ++++++ SUMMAR Y: ++++++ ++++++ ++++++ ++++++ ++++++ ++++++ Stress conclu promise: 1. Clinic ally negati ve. 2. Electr ocardi ograph ically negati ve treadm ill test for ischem ia. 3. Adequa te exerci se capaci ty. 4. Winston Treadm ill Score is 7.5, which indica jory low risk. 5. Blood pressu re respon se was normal . 6. Scinti graphi c images to follow . Perfus ion conclu promise: 1. Good study qualit y. Stress motion correc tion was applie d to images . No attenu ation is noted. Prone imagin g was perfor med. 2. Normal myocar dial perfus ion SPECT imagin g. 3. Normal wall motion with an ejecti on fracti on of 58%. 4. Stress test with myocar dial perfus ion imagin g shows overal l low risk for a cardia c event. ++++++ ++++++ ++++++ ++++++ ++++++ ++++++ FINDIN GS: ++++++ ++++++ ++++++ ++++++ ++++++ ++++++ Protoc ol: The images were proces sed using the standa SPECT techni que. A gated study was perfor med on the stress images . Impres promise: SPECT images demons trate normal perfus ion of normal intens ity. Heart Size: The left ventri oneyda is normal . LV Wall Motion : The LVEF is calcul ated to be 58%. Gated SPECT images reveal normal wall motion . Transi ent Ischem ic Dilata tion: The TID is 0.82. ++++++ ++++++ ++++++ ++++++ ++++++ ++++++ STRESS : ++++++ ++++++ ++++++ ++++++ ++++++ ++++++ Baseli ne Vital Signs: ECG: Sinus rhythm HR: 52 bmp Rest BP: 136/68 Treadm ill Test Protoc ol: Alpesh Sabillon on: 08:30 min:se c Max. Worklo ad (METS) : 10.3 Stress Test Result s: Max HR: 135 bmp Target HR: 156 bmp % Target : 87 % Max BP: 160/70 Max RPP: 54022 O2 sat: 99 % Sympto ms and Compli cation s: Termin ated: Shortn ess of breath , Leg fatigu e Sympto ms: Shortn ess of breath , Leg fatigu e Compli cation s: None Stress ECG Interp : Sinus tachyc ardia 2024 11:40 AM Kayla meza M.D. [address], [address], 12/12/2024 19:42:22 Result Notes None recorded. Problems Name Problem SNOMED Code Status Onset Date Resolution Date Notes Provider Name and Address Organization Details Recorded Time Hyperlip idemia 61744611 Active CORRIE JAYCOX null, [place] - [facility] 6 13:31:33 Benign essentia l hyperten promise 9546671 Active CORRIE JAYCOX null, [place] - [facility] 6 13:31:43 Chest pain 18655496 Active CORRIE JAYCOX null, [facility] 6 13:32:24 Abdomina l pain 01025379 Active -- ? IBS per MT Luis Carlos Merchant MD [address], [place], [address] , [facility] 8 09:16:46 Lymphede ma 009073231 Active CORRIE JAYCOX null, [place] - [facility] 6 13:33:15 Asthma 644031939 Active 2016 Luis Carlos Merchant MD [address], [place], [address] , [facility] 7 06:50:23 Rupture of rotator cuff of right shoulder [id number] 628632 Active 2017 -- right partial thicknes s [facility] 09[facility]13[facility]16 MD Keri Meeks [address], [place], [address] , [facility] 8 09:11:24 Gastroes ophageal reflux disease 610062335 Completed 201707/01/2017 MD Keri Meeks [address], [place], [address] , [facility] 8 09:13:51 Osteoart hritis of knee 211303238 Active 2017 -- [facility] (L>R) -- s/p synvisc injectio n x 3 (w/ previous steroid injectio ns also) MD Keri Meeks [address], [place], [address] , [facility] 8 09:24:11 Impotenc e of organic origin Active 2017 MD Keri Meeks [address], [place], [address] , [facility] 8 10:51:23 Flank pain 758879061 Active 2022 MD Keri Meeks [address] [place], [place], , [facility] 3 12:17:35 Nausea 378255542 Active 2022 MD Keri Meeks [address], [place], , [facility] 3 12:19:01 Multiple nodules of lung 660820827 Active 2022 MD Keri Meeks [address], [place], , [facility] 3 18:23:36 Benign prostati c 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 465962728 Active 2022 MD Keri Meeks [address], [place], [address] , [facility] 3 18:23:42 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 2022 MD Keri Meeks [address], [place], [address] , [facility] 3 18:24:30 Essentia l hyperten promise 67506880 Active 2022 MD Keri Meeks [address], [place], [address] , [facility] 3 22:05:49 Hypergly cemia 14109811 Active 2022 MD Keri Meeks [address], [place], [address] , [facility] 3 21:01:01 COVID-19 992666007 Active 2022 MD Keri Meeks [address], [place], [address] , [facility] 3 10:53:14 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 MD Keri Meeks [address], [place], [address] , [facility] 3 09:16:08 Lymphede ma of right upper limb 80215567807 205529 Active 2022 MD Keri Meeks [address], [place], [address] , [facility] 3 07:33:38 Lymphede ma of left upper limb 47070389637 265325 Active 2022 MD Keri Meeks [address], [address] , [facility] 3 07:34:39 Problem Notes Documentation Provider Name and Address Organization Details Recorded Time Sodder Consult Note : Patient Name: BRYANT MCCARTHY Date of : 1960 Med Rec #: [id number] Date of Service: 11/02/2023 Disch Date: 11/02/2023 [facility] [place], [place] [address] Cardiology Consult PCP: LUIS CARLOS MERCHANT MD Past Cardiac History Prior to Appointment 1. Prediabetes 2. Hypertension: [id number] mg QD, losartan 25 mg QD 3. Hyperlipidemia: atorvastatin 20 mg QD 4. Sleep Apnea: [facility]) 5. Thoracic Aortic Aneurysm: 3.8 cm (on 04/30/16) --> 4.2 cm (on 10/12/17) -- 3.9 ( on 10/25/2018) --> 3.9 cm (09/23/19)--> 4.0cm (09/2021) Interval History Since we last saw him he says he is doing well. He is tolerating his medications well. He is not checking his blood pressure at home. Blood pressure today 132/80. He denies any cardiac symptoms.Patient denies any chest pain, shortness of breath, dyspnea on exertion, pnd, orthopnea, lower extremity edema, fatigue,decreased appetite, palpitations, light headedness, dizziness, syncope. History Mr. Bryant Mccarthy Jr. is a 63-year-old male Last visit with KAYLA ENGLE in Cardiology was on: 10/24/2021 in [facility] Patient was referred for an abnormal EKG. patient had a EKG done on September 26, 2021. It showed sinus bradycardia, possible left atrial enlargement, left axis deviation. EKG was done for flushing/nausea that lasts for 15-20 minutes. Happens when he was at work and laying down. He also states he gets ocassional shortness of breath. He cannot describe what he is doing when it happens, but it is sporadic. Last visit with KAYLA ENGLE in Cardiology was on: 10/27/2022 in [facility] Since our last appointment he states he is doing okay. Not using CPAP as regularly. Is being w/u for flank pain by his PCP. Patient denies any chest pain, shortness of breath, dyspnea on exertion, pnd, orthopnea, lower extremity edema, fatigue,decreased appetite, palpitations, light headedness, dizziness, syncope. States he has episodes where he feels like he cannot get a big breath in. Compliant w/ medications. Exercise: Walks 3-4 miles per day with work. No formal exercise.Denies any exertional limitations We added losartan 25 mg QD to his medication regimen. Past Medical History: Diagnosis Date Abnormal EKG Arthritis Asthma (HHS/HCC) GERD (gastroesophageal reflux disease) Gout Hypertension Migraines Pneumonia Sleep apnea Past Surgical History: Procedure Laterality Date COLONOSCOPY STOMA DX INCLUDING COLLJ SPEC SPX Social History Tobacco Use Smoking status: Never Smokeless tobacco: Never Substance Use Topics Alcohol use: Not Currently Drug use: Never No family history on file. Review of patient's allergies indicates: No Known Allergies Review of Systems: A 14 point ROS was completed and was negative except as per HPI. Physical Exam Filed Vitals: 11/02/23 0919 BP: 132/80 Pulse: 74 SpO2: 98% Weight: 99.3 kg (219 lb) Height: 1.803 m (5' 11) Body mass index is 30.54 kg/mA?. Physical Exam: General: NAD, Appears Normal Stated Age HEENT: PEERL, EOMI, MMM NECK: No JVD CVS: RRR, no MRG Resp: CTAB, no wheezes, rales, rhonchi ABD: Soft, NT, ND, +BS Ext: No CCE Neuro: Non Focal Psych: Normal Affect Diagnostic Data Lab Results Component Value Date/Time WBC 4.9 09/26/2021 12:00 AM HGB 14.6 09/26/2021 12:00 AM HCT 46 09/26/2021 12:00 AM PLT 177 09/26/2021 12:00 AM NA 142 09/26/2021 12:00 AM NA 142 09/26/2021 12:00 AM NA 142 09/26/2021 12:00 AM CL 107 09/26/2021 12:00 AM CL 107 09/26/2021 12:00 AM CL 107 09/26/2021 12:00 AM K 4.1 09/26/2021 12:00 AM K 4.1 09/26/2021 12:00 AM K 4.1 09/26/2021 12:00 AM GLU 104 09/26/2021 12:00 AM GLU 104 09/26/2021 12:00 AM GLU 104 09/26/2021 12:00 AM BUN 14 09/26/2021 12:00 AM BUN 14 09/26/2021 12:00 AM BUN 14 09/26/2021 12:00 AM CR 1.2 11/02/2023 10:26 AM CR 0.9 09/26/2021 12:00 AM CR 0.9 09/26/2021 12:00 AM CR 0.9 09/26/2021 12:00 AM CA 9.1 09/26/2021 12:00 AM CA 9.1 09/26/2021 12:00 AM CA 9.1 09/26/2021 12:00 AM AST 20 09/26/2021 12:00 AM AST 20 09/26/2021 12:00 AM AST 20 09/26/2021 12:00 AM ALT 37 09/26/2021 12:00 AM ALT 37 09/26/2021 12:00 AM ALT 37 09/26/2021 12:00 AM ALB 4.3 09/26/2021 12:00 AM ALB 4.3 09/26/2021 12:00 AM ALB 4.3 09/26/2021 12:00 AM Lab Results Component Value Date CHOL 142 09/26/2021 TRI 118 09/26/2021 HDL 31 09/26/2021 LDL 87 09/26/2021 HGBA1C 5.8 09/26/2021 No results for input(s): TROP, TROPIWB in the last 168 hours. EKG: SR, possible LAE, LAD Transthoracic Echocardiogram TTE 10/2021: The left ventricular size is normal. Estimated left ventricular ejection fraction is 50-55%. There is no left ventricular hypertrophy. Left ventricular diastolic function is normal. The right ventricular size is mildly enlarged. Right ventricular systolic function is normal. The left atrial volume is normal ( less than 34 ml/M2). Right atrial size is mildly enlarged. Mild mitral regurgitation. Mild tricuspid regurgitation. Right ventricular systolic pressure is 25-30 mmHg. TTE 2018: 1. Normal global and regional left ventricular systolic function. EF 70%. Normal left ventricular diastolic function. Normal left ventricular cavity size. 2. Normal right ventricular systolic function. Normal right ventricular size. 3. There is mild enlargement of the right atrium. 4. Normal mitral valve appearance and function. Trace mitral valve regurgitation. 5. Aortic cusps appear mildly calcified. 6. Normal tricuspid valve appearance and function. Mild tricuspid regurgitation. Normal right ventricular systolic pressure. 7. Normal caliber aortic root dimension at level of AV, but mildly increased in the mid ascending aorta. 8. Normal caliber aortic arch. 3.[address] 09/2021: Maximal transluminal diameter of thoracic aorta is 3.8x4.0 cm Assessment/Plan #Hypertension: uncontrolled ; goal <120/80 given aortic enlargement - continue: nebivolol 10 mg QD - increase losartan to 50 mg QD - secondary work-up: - TSH: recommend checking TSH, defer to pcp - JO: on CPAP - Renin/Scooter: NA - Renal U/S: NA - Metanepharines: NA - Low sodium diet: recommend <1500mg/day #Aortic Dilation: - CT: 3.8 cm (on 04/30/16) --> 4.2 cm (on 10/12/17) -- 3.9 ( on 10/25/2018) --> 3.9 cm (09/23/19) --> 3.8x 4.0cm (09/2021) - TTE: 2021 - Repeat imaging: will space out imaging to every 2-3 years given relative stability since 2015, ordered for prior to next visit - Strict blood pressure control (goal BP <120/80) #Hyperlipidemia: 09/26/2021 12:00 AM LIPID PANEL FLOWSHEET CHOLESTEROL 142 TRIGLYCERIDES 118 HDL 31 LDL (CALCULATED) 87 This result is from an external source. - continue: atorvastatin 20 mg QD - repeat lipid panel:annually #Mild MR: TTE 2021 - CTM, repeat TTE every 3-5 years, ordered prior to next visit # Sleep Apnea: - continue on CPAP managed by [facility] #Health Maintenance Screening: - BMI: Body mass index is 30.54 kg/mA?. Recommend lifestyle modifications including diet (calorie deficit, low saturated/trans fat, low sodium) and exercise (150 minutes of moderate intensity/week) - AAA screening: N/A - PAD: no symptoms Follow-Up: 1 year Thank you for allowing me to participate in the care of this patient. Please reach out with any questions. Kayla Engle MD Portions of this note were dictated using [employer] speech recognition software. Occasional wrong word or sound-alike substitutions may have occurred due to the inherent limitations of voice recognition software. Please read the chart carefully and recognize, using context, where the substitutions may have occurred. Signed by: KAYLA ENGLE 11/02/2023 11:51 AM Luis Carlos Merchant MD [address], [place], [address], [facility] 11/17/2023 11:01:47 Sodder Consult Note : Patient Name: BRYANT MCCARTHY Date of : 1960 Med Rec #: [id number] Date of Service: 11/28/2024 Disch Date: 11/28/2024 [place], [place] [address] Cardiology Consult PCP: LUIS CARLOS MERCHANT MD Past Cardiac History Prior to Appointment 1. Prediabetes 2. Hypertension 3. Hyperlipidemia 4. Sleep Apnea: [facility]) 5. Thoracic Aortic Aneurysm: 3.8 cm (on 04/30/16) --> 4.2 cm (on 10/12/17) -- 3.9 ( on 10/25/2018) --> 3.9 cm (09/23/19)--> 4.0cm (09/2021) Interval History Patient presents today 11/28/2024 for a follow-up. States was seen in ER at [facility]. He developed nausea, daiphoresis, weakness. Unknown if he has any sob or palpitations during these episodes. Denies chest pain during these episodes. Can occur when he is just sitting or working. Episodes last about 10 minutes. In the past month has had this happen once. In the past year this has occurred 6-8 times. Tolerating his medications well. History Mr. Bryant Mccarthy Jr. is a 64-year-old male Last visit with KAYLA ENGLE in Cardiology was on: 10/24/2021 in [facility] Patient was referred for an abnormal EKG. patient had a EKG done on September 26, 2021. It showed sinus bradycardia, possible left atrial enlargement, left axis deviation. EKG was done for flushing/nausea that lasts for 15-20 minutes. Happens when he was at work and laying down. He also states he gets ocassional shortness of breath. He cannot describe what he is doing when it happens, but it is sporadic. Last visit with KAYLA ENGLE in Cardiology was on: 10/27/2022 in [facility] Since our last appointment he states he is doing okay. Not using CPAP as regularly. Is being w/u for flank pain by his PCP. Patient denies any chest pain, shortness of breath, dyspnea on exertion, pnd, orthopnea, lower extremity edema, fatigue,decreased appetite, palpitations, light headedness, dizziness, syncope. States he has episodes where he feels like he cannot get a big breath in. Compliant w/ medications. Exercise: Walks 3-4 miles per day with work. No formal exercise.Denies any exertional limitations We added losartan 25 mg QD to his medication regimen. Last visit with KAYLA ENGLE in Cardiology was on: 11/02/2023 in [facility] Since we last saw him he says he is doing well. He is tolerating his medications well. He is not checking his blood pressure at home. Blood pressure today 132/80. He denies any cardiac symptoms.Repeat TTE w/o any singificant arrhythmias. CTA chest 3.9 cm 10/2023. Past Medical History: Diagnosis Date Abnormal EKG Arthritis Asthma (HHS/HCC) GERD (gastroesophageal reflux disease) Gout Hypertension Migraines Pneumonia Sleep apnea Past Surgical History: Procedure Laterality Date COLONOSCOPY FLX DX W/COLLJ SPEC WHEN PFRMD Social History Tobacco Use Smoking status: Never Smokeless tobacco: Never Substance Use Topics Alcohol use: Not Currently Drug use: Never No family history on file. Review of patient's allergies indicates: No Known Allergies Review of Systems: A 14 point ROS was completed and was negative except as per HPI. Physical Exam Filed Vitals: 11/28/24 0929 BP: 120/72 Pulse: 68 SpO2: 98% Weight: 99.8 kg (220 lb) Height: 1.803 m (5' 11) Body mass index is 30.68 kg/mA?. Physical Exam: General: NAD, Appears Normal Stated Age HEENT: PEERL, EOMI, MMM NECK: No JVD CVS: RRR, no MRG Resp: CTAB, no wheezes, rales, rhonchi ABD: Soft, NT, ND, +BS Ext: No CCE Diagnostic Data Lab Results Component Value Date/Time WBC 4.9 09/26/2021 12:00 AM HGB 14.6 09/26/2021 12:00 AM HCT 46 09/26/2021 12:00 AM PLT 177 09/26/2021 12:00 AM NA 142 09/26/2021 12:00 AM NA 142 09/26/2021 12:00 AM NA 142 09/26/2021 12:00 AM CL 107 09/26/2021 12:00 AM CL 107 09/26/2021 12:00 AM CL 107 09/26/2021 12:00 AM K 4.1 09/26/2021 12:00 AM K 4.1 09/26/2021 12:00 AM K 4.1 09/26/2021 12:00 AM GLU 104 09/26/2021 12:00 AM GLU 104 09/26/2021 12:00 AM GLU 104 09/26/2021 12:00 AM BUN 14 09/26/2021 12:00 AM BUN 14 09/26/2021 12:00 AM BUN 14 09/26/2021 12:00 AM CR 1.2 11/02/2023 10:26 AM CR 0.9 09/26/2021 12:00 AM CR 0.9 09/26/2021 12:00 AM CR 0.9 09/26/2021 12:00 AM CA 9.1 09/26/2021 12:00 AM CA 9.1 09/26/2021 12:00 AM CA 9.1 09/26/2021 12:00 AM AST 20 09/26/2021 12:00 AM AST 20 09/26/2021 12:00 AM AST 20 09/26/2021 12:00 AM ALT 37 09/26/2021 12:00 AM ALT 37 09/26/2021 12:00 AM ALT 37 09/26/2021 12:00 AM ALB 4.3 09/26/2021 12:00 AM ALB 4.3 09/26/2021 12:00 AM ALB 4.3 09/26/2021 12:00 AM Lab Results Component Value Date CHOL 142 09/26/2021 TRI 118 09/26/2021 HDL 31 09/26/2021 LDL 87 09/26/2021 HGBA1C 5.8 09/26/2021 No results for input(s): TROP, TROPIWB in the last 168 hours. EKG: SR, possible LAE, LAD Transthoracic Echocardiogram TTE 10/2024 The left ventricular size is normal. Estimated left ventricular ejection fraction is 55-60%. Mild concentric left ventricular hypertrophy. Left ventricular diastolic function is normal. The right ventricular size is normal. Right ventricular systolic function is normal. The left atrial size is normal. Right atrial size is normal. No significant valvular abnormalities. The peak pulmonary artery systolic pressure is estimated to be approximately 27 mmHg. TTE 10/2021: The left ventricular size is normal. Estimated left ventricular ejection fraction is 50-55%. There is no left ventricular hypertrophy. Left ventricular diastolic function is normal. The right ventricular size is mildly enlarged. Right ventricular systolic function is normal. The left atrial volume is normal ( less than 34 ml/M2). Right atrial size is mildly enlarged. Mild mitral regurgitation. Mild tricuspid regurgitation. Right ventricular systolic pressure is 25-30 mmHg. TTE 2018: 1. Normal global and regional left ventricular systolic function. EF 70%. Normal left ventricular diastolic function. Normal left ventricular cavity size. 2. Normal right ventricular systolic function. Normal right ventricular size. 3. There is mild enlargement of the right atrium. 4. Normal mitral valve appearance and function. Trace mitral valve regurgitation. 5. Aortic cusps appear mildly calcified. 6. Normal tricuspid valve appearance and function. Mild tricuspid regurgitation. Normal right ventricular systolic pressure. 7. Normal caliber aortic root dimension at level of AV, but mildly increased in the mid ascending aorta. 8. Normal caliber aortic arch. 3.[address] 09/2021: Maximal transluminal diameter of thoracic aorta is 3.8x4.0 cm Assessment/Plan #Episodic Diaphoresis, n, fatigue. ?SOB/palps: unclear etiology, infrequent. Recommend ExSpect and 30 day event monitor. Recent TTE reviewed w/ no acute findings. #Hypertension: goal <120/80 given aortic enlargement - continue: nebivolol 10 mg QD, losartan 50 mg QD #Aortic Dilation: - CT: 3.8 cm (on 04/30/16) --> 4.2 cm (on 10/12/17) -- 3.9 ( on 10/25/2018) --> 3.9 cm (09/23/19) --> 3.8x 4.0cm (09/2021), 3.9 cm 10/2023. - TTE: 2021 - Repeat imaging: will space out imaging to every 2-3 years given relative stability since 2015 - Strict blood pressure control (goal BP <120/80) #Hyperlipidemia: 09/26/2021 12:00 AM LIPID PANEL FLOWSHEET CHOLESTEROL 142 TRIGLYCERIDES 118 HDL 31 LDL (CALCULATED) 87 This result is from an external source. - continue: crestor 10 mg QD, can d/c atorvastatin (also on list) - repeat lipid panel:annually # Sleep Apnea: - [facility] Follow-Up: 1 year Thank you for allowing me to participate in the care of this patient. Please reach out with any questions. Kayla Engle MD Portions of this note were dictated using [employer] speech recognition software. Occasional wrong word or sound-alike substitutions may have occurred due to the inherent limitations of voice recognition software. Please read the chart carefully and recognize, using context, where the substitutions may have occurred. Signed by: KAYLA ENGLE 11/28/2024 09:59 AM MD Keri Meeks [address], [place], [address], [facility] 12/01/2024 23:33:06 Procedures Surgical History Date Name Laterality Status Provider Name and Address Organization Details Recorded Time 05/23/20 19 Knee Surgery completed Isabella Hernandez [facility] 09/16/2019 08:59:19 11/11/19 18 Colonoscopy completed MD Krei Meeks [address], [place], [address], [facility] 02/06/2018 20:05:45 02/05/20 15 Colonoscopy completed Kelly Jiménez [facility] 07/01/2017 08:40:05 Hernia Repair completed CORRIE GRIER [facility] 04/11/2016 13:35:21 Shoulder joint surgery completed MD Keri Meeks [facility] [address], [place], [address], [facility] 07/01/2017 09:21:02 Imaging Results [...] TAKE 1 TABLET BY MOUTH AT BEDTIME 02/20 completed Not Available Not Available Not Available naproxen 375 mg tablet TAKE 1 [...] day by oral route in the morning. 04/07 /2023 completed Not Available Not Available Not Available [...] lone acetonide 0.1 % topical ointment APPLY THIN LAYER TOPICALL Y TO THE AFFECTED AREA TWICE DAILY active Not Available Not Available [...] Not Available rosuvasta tin 10 mg tablet TAKE 1 TABLET BY MOUTH EVERY DAY active Not Available Not Available No t Available tadalafil 20 mg tablet TAKE 1 TABLET [...] Xhance 93 mcg/actua tion breath activated aerosol [place] 1 spray twice a day by intranas al route. 11/16 completed Not Available Not Available Not Available Vitals Date Recorded Body height Heart rate Respiratory rate Body temperature Body mass index (BMI) Body weight Systolic And Diastolic Provider Name and Address Organization Details Last Updated DateTime 4 180.34 cm 58 /min 16 /min 98.1 [degF] 30.4 kg/m2 02427.1 4 g 127/79 mm[Hg] [facility] 4 08:39:36 Date Recorded Body height Heart rate Respiratory rate Body temperature Body mass index (BMI) Body weight Systolic And Diastolic Provider Name and Address Organization Details Last Updated DateTime 4 180.34 cm 60 /min 16 /min 97.7 [degF] 30.5 kg/m2 10180.7 3 g 134/74 mm[Hg] [facility] 4 09:55:33 Date Recorded Body height Heart rate Respiratory rate Body temperature Body mass index (BMI) Body weight Systolic And Diastolic Provider Name and Address Organization Details Last Updated DateTime 5 180.34 cm 50 /min 16 /min 98.8 [degF] 31.5 kg/m2 892657. 88 g 155/84 mm[Hg] Liza Schmitz [facility] 5 09:09:26 Date Recorded Body height Heart rate Respiratory rate Body temperature Body mass index (BMI) Body weight Systolic And Diastolic Provider Name and Address Organization Details Last Updated DateTime 4 180.34 cm 54 /min 16 /min 97.7 [degF] 30.7 kg/m2 38393.3 2 g 121/80 mm[Hg] [facility]01 Date Recorded Body height Heart rate Respiratory rate Body temperature Body mass index (BMI) Body weight Systolic And Diastolic Provider Name and Address Organization Details Last Updated DateTime 4 180.34 cm 57 /min 16 /min 97.5 [degF] 31.7 kg/m2 870104. 47 g 137/74 mm[Hg] Marge Samson [facility] 4 10:18:58 Social History Question Answer Notes LastModified by Organizat ion Details LastModified Time Tobacco Smoking Status Never Smoker Not Available [facility] 04/13/2020 03:11:40 Do You Have An Advance Directive? No [email or web address] Information n ot available 08/18/2023 What Is Your Level Of Caffeine Consumption? Occasional Information not available 08/18/2023 What Is Your Code Status? Full Code [email or web address] Information not available 08/18/2023 In The 14 Days Before Symptom Onset, Have You Had Close Contact With A Laboratory-confirm ed COVID-19 While That Case Was Ill? No [email or web address] Information n ot available 08/18/2023 In The 14 Days Before Symptom Onset, Have You Had Close Contact With A Person Who Is Under Investigation For COVID-19 While That Person Was Ill? No [email or web address] Information not available 08/18/2023 Have You Been To An Area Known To Be High Risk For COVID-19? No [email or web address] Information not available 08/18/2023 What Type Of Diet Are You Following? REGULAR [email or web address] Information n ot available 08/18/2023 Which Illicit Or Recreational Drugs Have You Used? None [id number] Information not available 04/13/2020 Are There Any Guns Present In Your Home? No [email or web address] Information not available 08/18/2023 Hard Of Hearing Or Deaf In One Or Both Ears? No [email or web address] Information not available 08/18/2023 Legally Blind In One Or Both Eyes? No [email or web address] Information no t available 08/18/2023 Live Alone Or With Others? With Others [email or web address] Information not available 08/18/2023 Marital Status [email or web address] Informatio n not available 08/18/2023 What Was The Date Of Your Most Recent Tobacco Screening? 01/20/2025 [email or web address] Information not available 01/20/2025 Seat Belts Used Routinely Yes Information not available 08/18/2023 Smoke Alarm In Home Yes [email or web address] Information not available 08/18/2023 How Much Tobacco Do You Smoke? No [id number] Information not available 04/13/2020 How Many Years Have You Smoked Tobacco? 0 [email or web address] Information not available 08/18/2023 Sex: Unknown Functional Status Question Answer Note LastModified by Organizat ion Details LastModified Time What is your level of alcohol consumption? None [id number] Information not available 04/13/2020 Do you or have you ever used smokeless tobacco? Never used smokeless tobacco [email or web address] Information not available 08/18/2023 Are you currently employed? Yes [email or web address] Information not available 08/18/2023 Are you able to care for yourself independently? 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 Never used electronic cigarettes [email or web address] Information not available 08/18/2023 What is your exercise level? Occasional [email or web address] Information not available 08/18/2023 Mental Status None recorded. Family History Relationship Description Onset Age of this Age Resolved Age Notes LastModified by Organization Details LastModified Time Father Diabetes mellitus [email or web address] Not available 2015 13:34:30 Mother Rheumatic fever [email or web address] Not available 12/28 08:56:17 Notes:-- no FH for CAD or ca ncers Medical History No medical history recorded. Immunizations Vaccine Type Date Status Note Provider Nam e and Address Organization Details Recorded Time COVID-19, mRNA, LNP-S, PF, 100 mcg/0.5mL dose or 50 mcg/0.25mL dose 1 completed Jeanette Parsons [facility] 08/18/2023 08:34:37 COVID-19, mRNA, LNP-S, PF, 100 mcg/0.5mL dose or 50 mcg/0.25mL dose 1 completed Jeanette Parsons [facility], [facility] 08/18/2023 08:34:38 Influenza, split virus, quadrivalent, preservative 6 completed Jeanette Alvaradooya bindu, [facility] 08/18/2023 08:34:37 Tdap 4 completed MD Keri Meeks [address], [facility] [address], [facility] 07/01/2017 09:15:45 Past Encounters Encounter ID Performer Location Encounter Start Date Encounter Closed Date Diagnosis/Indication Diagnosis SNOMED-CT Code Diagnosis ICD10 Code Diagnosis IMO Codes Diagnosis Note [id number] Luis Carlos Merchant MD [facility] Keri [facility] [address] [place] [address] 04/11/2016 12:39:27 04/11/2016 14:17:36 Benign essential hypertension 5206402 I10 Hyperlipidemia 05983985 E78.5 Abdominal pain 87425301 R10.9 -- pt reports he had just done CT scan at [facility] and he will try to obtain reports for me. Chest pain 97637583 R07. 9 (Constant x2 months) -- will order testings Headache 81755940 R51 (chronic) -- did MRI at [facility] and pt will obtain reports for me. Screening for malignant neoplastic disease 54090305 Z12.9 -- Patient had a normal screening colonoscop y done on 02/04/11 at the [facility] [id number] Luis Carlos Merchant MD [employer] Keri [facility] [address] [place] [address] 06/04/2016 09:27:04 06/04/2016 11:21:44 Headache 14565455 R51 (chronic) -- did MRI at [facility] and pt will obtain reports for me. Abdominal pain 43826157 R10.9 -- pt reports he had just done CT scan at [facility] and he will try to obtain reports for me. Screening for malignant neoplastic disease 41768668 Z12.9 -- Patient had a normal screening colonoscop y done on 02/04/11 at the [facility] Chest pain 25123539 R07. 9 (Constant x2 months) -- will order testings Benign ess ential hypertension 2575033 I10 Hyperlipidemia 60785055 E78.5 Aneurysm o f thoracic aorta 670560761 I71.2 3.8 cm on 04/30/16; will repeat CT scan around 10/28/16 Allergic rhinitis 168474 04 J30.9 Impotence of organic origin 195780337 N52.9 [id number] Luis Carlos Merchant MD [place], [address] ,[address] [address] 09/02/2016 10:31:18 09/02/2016 12:22:47 Benign essential hypertension 8104725 I10 Aneurysm o f thoracic aorta 932184983 I71.2 3.8 cm on 04/30/16; will repeat CT scan around 10/28/16 Hyperlipidemia 90888453 E78.5 Chest pain 26641217 R07. 9 (Constant x2 months) -- will order testings Headache 43017992 R51 (chronic) -- did MRI at [facility] and pt will obtain reports for me. Abdominal pain 88024985 R10.9 -- pt reports he had just done CT scan at [facility] and he will try to obtain reports for me. Allergic rhinitis 540404 04 J30.9 Impotence of organic origin 081120450 N52.9 Screening for malignant neoplastic disease 47863949 Z12.9 -- Patient had a normal screening colonoscop y done on 02/04/11 at the [facility] Body mass index 25-29 - overweight 081775109 Z68.29 -- Advise weight loss; patient lost 3.5 # since his last visit-- Patient's BMI today is 28.8 (idealisti c than 20-25); patient is muscular. Viral screening 80386270 4 Z11.59 Depression screening 171 373153 Z13.89 -- Negative for depression symptoms Active or passive immunization 182025403 Z23 Dyspnea 196508137 R06.00 (w/ tendency to cough sometimes) [id number] Luis Carlos Merchant MD [facility] [address] [place] [address] 12/11/2016 11:52:37 12/11/2016 12:47:21 Benign essential hypertension 7650523 I10 Dyspnea 651824874 R06.00 (w/ tendency to cough sometimes) -- resolved Aneurysm o f thoracic aorta 345046715 I71.2 3.8 cm on 04/30/16; will repeat CT scan around 10/28/16 Hyperlipidemia 12788833 E78.5 Chest pain 15984527 R07. 9 (Constant x2 months) -- resolved. Headache 99341475 R51 (chronic) -- did MRI at [facility] and pt had still not obtain reports for me; Currently asymptomat ic Abdominal pain 81962582 R10.9 -- pt reports he had just done CT scan at [facility] and he will try to obtain reports for me. Allergic rhinitis 633147 04 J30.9 Impotence of organic origin 858095161 N52.9 Screening for malignant neoplastic disease 88367225 Z12.9 -- Patient had a normal screening colonoscop y done on 02/04/11 at the [facility]-- - PSA level of 0.9 on 06/04/16 Body mass index 25-29 - overweight 296963346 Z68.29 -- Advise weight loss; patient gained 0.5 # since his last visit-- Patient's BMI today is 28.9 (idealisti c than 20-25); patient is muscular. Viral screening 50569246 4 Z11.59 -- Appetite C. antibodies nonreactiv e on 09/02/16 Depression screening 171 Z13.89 -- Negative for depression symptoms Active or passive immunization 364019253 Z23 Asthma 798311593 J45.90 9 [id number] Luis Carlos Merchant MD [facility] [address] [facility] [address] [place] [address] 01/28/2017 12:19:34 01/28/2017 14:22:31 Neck pain 89269218 M54.2 Pain in th oracic spine 322285314 M54.9 Low back pain 408047870 M54.5 [id number] Luis aCrlos Merchant MD [facility] [place] [address] [facility] ,[address] [address] 03/17/2017 08:35:30 03/17/2017 09:21:37 Adult health examination 791999878 Z00.00 Neck pain 64488816 M54.2 -- pt reports that Chiropract or Dr Morrell is helping him (80-90% better) Low back pain 119284229 M54.5 -- pt reports that Chiropract or Dr Morrell is helping him (80-90% better) Benign ess ential hypertension 7406787 I10 -- last EKG was done 06/04/16-- BP controlled Aneurysm o f thoracic aorta 573287672 I71.2 3.8 cm on 04/30/16; ordered CT scan to be on 10/28/16 but not done; will re-order Hyperlipidemia 73931662 E78.5 Headache 78252266 R51 (chronic) -- did MRI at [facility] and pt had still not obtain reports for me; Currently asymptomat ic Abdominal pain 84830896 R10.9 -- pt reports he had just done CT scan at [facility] and he will try to obtain reports for me. Allergic rhinitis 559518 04 J30.9 Impotence of organic origin 562317473 N52.9 Body mass index 25-29 - overweight 121420301 Z68.29 -- Advise weight loss; patient gained 3 # since his last visit-- Patient's BMI today is 28.9 (idealisti c than 20-25); patient is muscular. Viral screening 04299703 4 Z11.59 -- Appetite C. antibodies nonreactiv e on 09/02/16 Depression screening 171 405104 Z13.89 -- Negative for depression symptoms Active or passive immunization 163428338 Z23 Asthma 142616968 J45.90 9 -- last spirometry was done 09/02/16 Screening for malignant neoplasm of colon 522943294 Z12.11 -- Patient had a normal screening colonoscop y done on 02/04/11 at the [facility] Screening for malignant neoplasm of prostate 070026104 Z12.5 --- PSA level of 0.9 on 06/04/16 [id number] Luis Carlos Merchant MD [employer] [address] [facility] ,[address] [place] [address] 07/01/2017 08:31:47 07/01/2017 09:42:04 Neck pain 09495804 M54.2 -- pt reports that Chiropract or Dr Morrell is helping him (80-90% better)-- xrays from 01/28/17 showed degenerati ve changes Low back pain 038356051 M54.5 -- pt reports that Chiropract or Dr Morrell is helping him (80-90% better)-- xrays from 01/28/17 showed degenerati ve changes Benign ess ential hypertension 3759885 I10 -- last EKG was done 06/04/16-- BP controlled Aneurysm o f thoracic aorta 894702694 I71.2 3.8 cm on 04/30/16; ordered CT scan to be on 10/28/16 but not done; will re-order Hyperlipidemia 60471251 E78.5 Headache 48230048 R51 (chronic) -- MRI at [facility] on 04/02/16 did not show any mass Abdominal pain 20957351 R10.9 -- [facility] scan report from 04/02/16 was unrevealin g. Allergic rhinitis 993564 04 J30.9 (rare urticaria -- last time was Jun 2016) Impotence of organic origin 989834134 N52.9 Body mass index 25-29 - overweight 914067944 Z68.29 -- Advise weight loss; patient lost 1 # since his last visit-- Patient's BMI today is 28.7 (idealisti c than 20-25); patient is muscular. Asthma 372348324 J45.90 9 (quiescent ) -- last spirometry was done 09/02/16 Viral screening 41403449 4 Z11.59 -- Hepatitis C antibodies nonreactiv e on 09/02/16 Depression screening 171 706358 Z13.89 -- Negative for depression symptoms Active or passive immunization 426375175 Z23 Screening for malignant neoplasm of colon 103602866 Z12.11 -- Patient had a normal screening colonoscop y done on 02/04/11 at the [facility] Screening for malignant neoplasm of prostate 745231170 Z12.5 --- PSA level of 0.9 on 06/04/16 Acute sinusitis 46588812 J01.90 -- f/u w/ me if sx persists in 3 weeks. [id number] Luis Carlos Merchant MD [facility] [address] [facility] [address] [place] [address] 10/02/2017 09:32:24 10/02/2017 11:08:59 Acute sinusitis 11249906 J01.90 -- resolved Benign ess ential hypertension 5529148 I10 -- last EKG was done 06/04/16 will repeat EKG today 8-- BP controlled Aneurysm o f thoracic aorta 215414393 I71.2 3.8 cm on 04/30/16; re-ordered CT scan to be done on 10/28/16 but not done; will re-order again and get approval from insurance again. Hyperlipidemia 77815950 E78.5 Headache 73522594 R51 (chronic) -- MRI at [facility] on 04/02/16 did not show any mass-- no sx today Abdominal pain 75773724 R10.9 -- [facility]16 was unrevealin g.-- pt also has 3 # unintentio nal weight loss Neck pain 68289156 M54.2 -- pt reported that Chiropract or Dr Morrell is helping him (80-90% better)-- xrays from 01/28/17 showed degenerati ve changes Low back pain 715783603 M54.5 -- pt reported that Chiropract or Dr Morrell is helping him (80-90% better)-- xrays from 01/28/17 showed degenerati ve changes Allergic rhinitis 808709 04 J30.9 (rare urticaria -- last time was Jun 2016) Impotence of organic origin 525405917 N52.9 Body mass index 25-29 - overweight 406550986 Z68.29 -- Advise weight loss; patient lost 3 # since his last visit-- Patient's BMI today is 28.7 (idealisti c than 20-25); patient is muscular. Asthma 363832155 J45.90 9 (quiescent ) -- last spirometry was done 09/02/16 Viral screening 34844667 4 Z11.59 -- Hepatitis C antibodies nonreactiv e on 09/02/16 Depression screening 171 802184 Z13.89 -- Negative for depression symptoms Active or passive immunization 620262627 Z23 -- Flu season over Screening for malignant neoplasm of colon 351436489 Z12.11 -- Patient reports he had a normal screening colonoscop y done on 02/04/11 at the [facility]; pt agrees to get colonoscop y report for me. Screening for malignant neoplasm of prostate 760893656 Z12.5 --- PSA level of 0.9 on 06/04/16 Antiplatel et agent therapy 932708458 Z79.02 -- Patient reports he is taking over-the-c ounter aspirin 81 mg one tablet daily Unintentio nal weight loss 029408290 R63.4 [id number] Luis Carlos Merchant MD [facility] ,[address] [address] 11/09/2017 17:43:20 11/09/2017 19:02:40 Benign essential hypertension 3321247 I10 -- last EKG was done 06/04/16 will repeat EKG today 8-- BP controlled Aneurysm o f thoracic aorta 722492632 I71.2 3.8 cm (on 04/30/16) --> 4.2 cm (on 10/12/17) -- refer pt to Cardiothor acic surgeon Dr Hon Britta Parra. Hyperlipidemia 87775385 E78.5 Headache 70146942 R51 (chronic) -- MRI at [facility] on 04/02/16 did not show any mass-- no sx today Unintentio nal weight loss 494508351 R63.4 Neck pain 63615803 M54.2 -- pt reported that Chiropract or Dr Morrell is helping him (80-90% better)-- xrays from 01/28/17 showed degenerati ve changes-- no sx today 11/09/17 Low back pain 059983224 M54.5 -- pt reported that Chiropract or Dr Morrell is helping him (80-90% better)-- xrays from 01/28/17 showed degenerati ve changes-- no sx today 11/09/17 Allergic rhinitis 387770 04 J30.9 (rare urticaria -- last time was Jun 2016) Impotence of organic origin 039351287 N52.9 Body mass index 25-29 - overweight 332118768 Z68.29 -- Advise weight loss; patient lost 3 # since his last visit-- Patient's BMI today is 28.7 (idealisti c than 20-25); patient is muscular. Asthma 454179665 J45.90 9 (quiescent ) -- last spirometry was done 09/02/16 Depression screening 171 814992 Z13.89 -- Negative for depression symptoms Antiplatel et agent therapy 893588672 Z79.02 -- Patient reports he is taking over-the-c ounter aspirin 81 mg one tablet daily Viral screening 99438994 4 Z11.59 -- Hepatitis C antibodies nonreactiv e on 09/02/16 Active or passive immunization 285235684 Z23 -- Flu season over Screening for malignant neoplasm of colon 898036568 Z12.11 -- Stool globin negative for occult blood on 10/20/17-- Patient reports he had a normal screening colonoscop y done on 02/04/11 at the [facility]; pt agrees to get colonoscop y report for me. Screening for malignant neoplasm of prostate 070200046 Z12.5 PSA level of 0.9 on 06/04/16 --> to PSA level of 1.2 on 10/02/17 Nonspecifi c mesenteric adenitis 980195002 I88.0 w/ abdominal discomfort -- on CT of abd/pelvis on 10/12/17 Irritable bowel syndrome with diarrhea 644079145 K58.0 (has Episodic abdominal pain/disco mfort, bloating, some constipati on, and mostly diarrhea) [id number] Luis Carlos Merchant MD [facility], [facility] [address] [facility] [place] ,[facility] [address] [place] [address] 09/06/2018 16:33:32 09/06/2018 18:25:43 Adult health examination 730564977 Z00.00 Nonspecifi c mesenteric adenitis 519164594 I88.0 w/ abdominal discomfort -- on CT of abd/pelvis on 10/12/17 Irritable bowel syndrome with diarrhea 083907085 K58.0 (has Episodic abdominal pain/disco mfort, bloating, some constipati on, and mostly diarrhea) -- responded well to Xifaxan Benign ess ential hypertension 4961999 I10 -- last EKG was done on 10/02/17-- BP controlled Aneurysm o f thoracic aorta 732110908 I71.2 3.8 cm (on 04/30/16) --> 4.2 cm (on 10/12/17) -- recheck CTA of chest on 10/11/18 Hyperlipidemia 88401949 E78.5 Unintentio nal weight loss 001580336 R63.4 -- pt lost 2 # since his last visit-- CXR on 10/12/17 Allergic rhinitis 838908 04 J30.9 (rare urticaria -- last time was Jun 2016) Impotence of organic origin 953635952 N52.9 Body mass index 25-29 - overweight 930741473 Z68.29 -- Advise weight loss; patient lost 3 # since his last visit-- Patient's BMI today is 28.7 (idealisti c than 20-25); patient is muscular. Asthma 928977018 J45.90 9 (quiescent ) -- last spirometry was done on 11/09/17 Depression screening 171 133779 Z13.89 -- Negative for depression symptoms Antiplatel et agent therapy 256251589 Z79.02 -- Patient reports he is taking over-the-c ounter aspirin 81 mg one tablet daily Viral screening 43585807 4 Z11.59 -- Hepatitis C antibodies nonreactiv e on 09/02/16 Active or passive immunization 978925619 Z23 -- Flu season over Screening for malignant neoplasm of colon 372627130 Z12.11 -- Stool globin negative for occult blood on 10/20/17-- Patient reports he had a normal screening colonoscop y done on 02/04/11 at the [facility]; pt agrees to get colonoscop y report for ms. Screening for malignant neoplasm of prostate 834026759 Z12.5 PSA level of 0.9 on 06/04/16 --> to PSA level of 1.2 on 10/02/17 Gastroesop hageal reflux disease without esophagitis 794247217 K21.9 -- well controlled w/ [place] [id number] Luis Carlos Merchant MD [place], [place] [address] [facility] [place] ,[address] [address] 03/14/2019 09:10:40 03/14/2019 10:18:27 Nonspecific mesenteric adenitis 854523382 I88.0 -- CT of abd/pelvis showed resolution of adenitis but enlarged prostate Benign ess ential hypertension 3966481 I10 -- BP controlled Aneurysm o f thoracic aorta 815315664 I71.2 3.8 cm (on 04/30/16) --> 4.2 cm (on 10/12/17) -- 3.9 ( on 10/25/2018 ) Hyperlipidemia 24798440 E78.5 LDL was 84 on 09/06/2018 Unintentio nal weight loss 274202742 R63.4 -- pt lost 2 # since his last visit-- CXR on 10/12/17 , CT abd/Pelvis was done 09/28/2018 -- nl CBC, TFT on 09/06/2018 Allergic rhinitis 255918 04 J30.9 (rare urticaria -- last time was Jun 2016) Impotence of organic origin 382306935 N52.9 Body mass index 25-29 - overweight 820090217 Z68.29 -- Advise weight loss; patient lost 3 # since his last visit-- Patient's BMI today is 28.7 (idealisti c than 20-25); patient is muscular. Gastroesop hageal reflux disease without esophagitis 301005901 K21.9 -- well controlled w/ Pantoprazo le from [place] Asthma 745058533 J45.90 9 (quiescent ) -- last spirometry was done on 11/09/17 Depression screening 171 235041 Z13.89 -- Negative for depression symptoms Active or passive immunization 296552098 Z23 Screening for malignant neoplasm of colon 191155786 Z12.11 -- Stool globin negative for occult blood on 10/20/17-- Patient reports he had a normal screening colonoscop y done on 02/04/11 at the [facility];p t agrees to get colonoscop y report for me. Screening for malignant neoplasm of prostate 734888350 Z12.5 PSA level of 0.9 on 06/04/16 --> to PSA level of 1.2 on 10/02/17-- check PSA level today 03/14/19 Hepatitis C screening 41 9024427 Z11.59 -- Hepatitis C antibodies nonreactiv e on 09/02/16 Irritable bowel syndrome with diarrhea 905996135 K58.0 (has Episodic abdominal pain/disco mfort, bloating, some constipati on, and mostly diarrhea) -- responded well to Xifaxan. [id number] Luis Carlos Merchant MD [employer] [address] [facility] ,[address] [place] [address] 09/16/2019 08:43:25 09/16/2019 10:04:19 Adult health examination 499557537 Z00.00 Benign ess ential hypertension 3321163 I10 -- BP controlled -- last EKG done on 03/14/19 Aneurysm o f thoracic aorta 910395259 I71.2 3.8 cm (on 04/30/16) --> 4.2 cm (on 10/12/17) -- 3.9 ( on 10/25/2018 ) Hyperlipidemia 86573587 E78.5 LDL was 84 on 09/06/2018 Allergic rhinitis 733271 04 J30.9 (rare urticaria -- last time was Jun 2016) Impotence of organic origin 726772292 N52.9 Body mass index 25-29 - overweight 073126200 Z68.27 -- Advise weight loss; patient GAINED 7 # since his last visit-- Patient's BMI today is 27.8 (idealisti c than 20-25); patient is muscular. Gastroesop hageal reflux disease without esophagitis 578013256 K21.9 -- well controlled w/ Omeprazole from [place] Asthma 147789569 J45.90 9 (quiescent ) -- last spirometry was done on 03/14/19 Irritable bowel syndrome with diarrhea 372854331 K58.0 (has Episodic abdominal pain/disco mfort, bloating, some constipati on, and mostly diarrhea) -- responded well to Xifaxan. No recurrence of sx. Depression screening 171 473006 Z13.89 -- Negative for depression symptoms Hepatitis C screening 41 4013088 Z11.59 -- Hepatitis C antibodies nonreactiv e on 09/02/16 Active or passive immunization 188951851 Z23 -- pt reported that he had received Flu shot at [facility] around May 2019 Screening for malignant neoplasm of colon 618021563 Z12.11 -- Stool globin negative for occult blood on 4/24/18-- Patient reports he had a normal screening colonoscop y done on 02/04/11 at the [facility];- - pt agrees to get colonoscop y report for me. Screening for malignant neoplasm of prostate 968582908 Z12.5 PSA level of 1.6 on 03/14/19 [id number] Luis Carlos Merchant MD [employer] [address] [place] [address] ,[address] [place] [address] 03/23/2020 08:37:36 03/26/2020 16:14:11 Essential hypertension 84263878 I10 -- BP controlled -- last EKG done 03/23/20 Hyperlipidemia 35711280 E78.5 LDL was 84 on 09/06/2018 Migraine 13757838 G43.90 9 (without aura) -- went off Topiramate due to unintentio nal weight loss-- now on sumatripta n from [place] Body mass index 25-29 - overweight 848696634 Z68.29 -- Advise weight loss; patient gained 13 # since his last visit (went off Topiramate )-- Patient's BMI today is 29.6 (idealisti c than 20-25); patient is muscular. Primary er ectile dysfunction 177813833 N52.9 Asthma 157159368 J45.90 9 (quiescent ) -- last spirometry was done on 03/14/19 [id number] Luis Carlos Merchant MD [employer] [facility] [employer] [place] ,[address] [place] [address] 09/24/2020 09:02:05 09/24/2020 09:32:01 Adult health examination 801393565 Z00.00 Essential hypertension 79253306 I10 -- BP controlled -- last EKG done 03/23/20 Hyperlipidemia 19732585 E78.5 LDL was 84 on 09/06/2018 Asthma 595869685 J45.90 9 (quiescent ) -- spirometry done 03/23/20 Migraine 23465369 G43.90 9 (without aura) -- went off Topiramate due to unintentio nal weight loss -- now on sumatripta n from [place] Primary er ectile dysfunction 926139176 N52.9 Aneurysm o f thoracic aorta 028274248 I71.2 3.8 cm (on 04/30/16) --> 4.2 cm (on 10/12/17) -- 3.9 ( on 10/25/2018 ) --> 3.9 cm (09/23/19) Allergic rhinitis 367960 04 J30.9 (rare urticaria -- last time was Jun 2016) Impotence of organic origin 831337694 N52.9 Gastroesop hageal reflux disease without esophagitis 827316543 K21.9 -- well controlled w/ Omeprazole from [place] Irritable bowel syndrome with diarrhea 062874537 K58.0 (has Episodic abdominal pain/disco mfort, bloating, some constipati on, and mostly diarrhea) -- responded well to Xifaxan. No recurrence of sx. Depression screening 171 510604 Z13.89 -- Negative for depression symptoms Hepatitis C screening 41 2045773 Z11.59 -- Hepatitis C antibodies nonreactiv e on 09/02/16 Active or passive immunization 623937945 Z23 -- pt reported that he had received 2 Shingrix shots at [facility] and he will get report for ms Screening for malignant neoplasm of colon 342895323 Z12.11 -- Gastroente rologist Dr Kishore Pelletier recommende d repeating colonoscop y 10 years from 03/14/19 Screening for malignant neoplasm of prostate 498916893 Z12.5 PSA level of 1.6 (03/14/19) Body mass index 30+ - obesity 816091930 Z68.39 -- Advise weight loss; patient gained 3 # since his last visit (went off Topiramate ) -- Patient's BMI today is 30 (idealisti c than 20-25); patient is muscular. [id number] Luis Carlos Merchant MD [employer] [address] [facility] [place] ,[address] [address] 03/28/2021 09:12:16 03/28/2021 10:22:51 Hyperlipidemia 55041198 E78.5 LDL was 84 on 09/06/2018 Essential hypertension 84435306 I10 -- BP controlled -- last EKG done 03/23/20 Primary er ectile dysfunction 580157702 N52.9 -- saw Urologist Dr Abbi Partida Asthma 030632251 J45.90 9 (quiescent ) -- spirometry done 03/23/20 Migraine 47557057 G43.90 9 (without aura) -- went off Topiramate due to unintentio nal weight loss -- now on sumatripta n from [place] Body mass index 30+ - obesity 759573564 Z68.39 -- Advise weight loss; no weight change since his last visit (went off Topiramate ) -- Patient's BMI today is 30 (idealisti c than 20-25); patient is muscular. Aneurysm o f thoracic aorta 061009846 I71.2 3.8 cm (on 04/30/16) --> 4.2 cm (on 10/12/17) -- 3.9 ( on 10/25/2018 ) --> 3.9 cm (09/23/19) Allergic rhinitis 880598 04 J30.9 (rare urticaria -- last time was Jun 2016; then in October 2020, his itching returned) Gastroesop hageal reflux disease without esophagitis 190013795 K21.9 -- well controlled w/ Omeprazole from [place] Irritable bowel syndrome with diarrhea 295161679 K58.0 (has Episodic abdominal pain/disco mfort, bloating, some constipati on, and mostly diarrhea) -- responded well to Xifaxan. No recurrence of sx. Depression screening 171 169205 Z13.89 -- Negative for depression symptoms Hepatitis C screening 41 8576427 Z11.59 -- Hepatitis C antibodies nonreactiv e on 09/02/16 Active or passive immunization 197996324 Z23 -- pt reported that he had received 2 Shingrix shots [place] [facility] and he will get report for ms Screening for malignant neoplasm of colon 504861625 Z12.11 -- Gastroente rologist Dr Kishore Pelletier recommende d repeating colonoscop y 10 years from 03/14/19 Screening for malignant neoplasm of prostate 397325089 Z12.5 PSA level of 1.6 (03/14/19) --> 2.6 (09/24/20) [id number] Luis Carlos Merchant MD [facility] [address] [facility] ,[address] [address] 09/26/2021 09:15:48 09/26/2021 11:01:38 Allergic rhinitis 49311604 J30.9 (rare urticaria -- last time was Jun 2016; then in October 2020, his itching returned) Essential hypertension 34650856 I10 -- BP controlled -- EKG done 09/26/21 Hyperlipidemia 26284834 E78.5 Asthma 891961046 J45.90 9 (quiescent ) -- spirometry done Migraine 97699387 G43.90 9 (without aura) -- went off Topiramate due to unintentio nal weight loss -- now on sumatripta n from [place] Body mass index 30+ - obesity 088652531 Z68.30 -- Advise weight loss; pt gained 2 # since his last visit (went off Topiramate ) -- Patient's BMI today is 30.3 (idealisti c than 20-25); patient is muscular. Aneurysm o f thoracic aorta 093298605 I71.2 3.8 cm (on 04/30/16) --> 4.2 cm (on 10/12/17) -- 3.9 ( on 10/25/2018 ) --> 3.9 cm (09/23/19) Gastroesop hageal reflux disease without esophagitis 046774211 K21.9 -- well controlled w/ Omeprazole from [place] Irritable bowel syndrome with diarrhea 878731231 K58.0 (has Episodic abdominal pain/disco mfort, bloating, some constipati on, and mostly diarrhea) -- responded well to Xifaxan. No recurrence of sx. Primary er ectile dysfunction 552340136 N52.9 -- saw Urologist Dr Abbi Partida Depression screening 171 109825 Z13.89 -- Negative for depression symptoms Hepatitis C screening 41 1249012 Z11.59 -- Hepatitis C antibodies nonreactiv e on 09/02/16 Active or passive immunization 388800347 Z23 -- pt reported that he had received 2 Shingrix shots [place] [facility] and he will get report for ms Screening for malignant neoplasm of colon 696886014 Z12.11 -- Gastroente rologist Dr Kishore Pelletier recommende d repeating colonoscop y 10 years from 03/14/19 Screening for malignant neoplasm of prostate 943211092 Z12.5 PSA level of 1.6 (03/14/19) --> 2.6 (09/24/20) Family his tory of diabetes mellitus 753352011 Z83.3 Excessive sweating 62009 005 R61 -- ? hypoglycem ia [id number] Luis Carlos Merchant MD [employer] [facility], [place] [address] [employer] [place] ,[address] [address] 01/02/2022 11:46:27 01/02/2022 13:23:48 Adult health examination 239587013 Z00.00 Body mass index 30+ - obesity 071914057 Z68.30 -- Advise weight loss; pt lost 0.5 # since his last visit (went off Topiramate ) -- Patient's BMI today is 30.3 (idealisti c than 20-25); patient is muscular. Tinea cruris 252981232 B 35.6 Cellulitis of skin 99680 1002 L03.90 (hien-rect al, buttocks & scrotum) [id number] Luis Carlos Merchant MD [employer] [facility], [address] [place] ,[address] [place] [address] 04/04/2022 09:23:34 04/04/2022 10:57:10 Cellulitis of skin 569214304 L03.90 (hien-rect al, buttocks & scrotum) -- resolved Tinea cruris 470802735 B 35.6 -- resolved but will issue Rx refill Body mass index 30+ - obesity 337458407 Z68.30 -- Advise weight loss; pt gained 2.5 # since his last visit (went off Topiramate ) -- Patient's BMI today is 30.5 (idealisti c than 20-25); patient is muscular. [id number] Luis Carlos Merchant MD [employer], [place] [address] [employer] [place] ,[address] [place] [address] 08/22/2022 10:31:16 08/22/2022 12:28:41 Flank pain 512415624 R10.9 (bilateral lower flank) Nausea 964818916 R11.0 Abdominal pain 90482066 R10.9 (generaliz ed)-- no weight change since his last visit [id number] Luis Carlos Merchant MD [employer] [facility], [address] [place] [address] [place] [address] 10/03/2022 09:26:24 10/03/2022 11:01:25 Abdominal pain 20880578 R10.9 (generaliz ed) -- pt still symptomati c Flank pain 563857095 R10 .9 (bilateral lower flank) -- still symptomati c HIV screening 640666553 Z11.4 Asthma 566431054 J45.90 9 (quiescent ) -- spirometry done Hyperlipidemia 82599476 E78.5 COVID-19 306473054 U07.1 -- dx'd w/ covid around 09/08/22 [id number] Luis Carlos Merchant MD [facility], [address] [place] [address] 04/17/2023 08:34:52 04/17/2023 09:32:25 Axillary lymphadenopathy 679472333 R59.0 -- pt reported he had Flu shot a few days before the chest CT (that demonstrat ed the LN) Mesenteric lymphadenopathy 116428653 I88.[address] -- no sx [id number] Luis Carlos Merchant MD [employer] [facility], [address] ,[address] [place] [address] 08/18/2023 08:32:21 08/18/2023 09:54:30 Adult health examination 850942861 Z00.00 Axillary lymphadenopathy 856026626 R59.0 -- pt reported he had Flu shot a few days before the chest CT (that demonstrat ed the LN)-- u/s on 05/29/[address] is not enlarged Mesenteric lymphadenopathy 294643658 I88.0 (on both Abd/pelvis CT on 08/22/22 and 04/02/23) -- Tx'd w/ both Augmentin and Metronidaz ole-- just had EGD & [facility]oscop [facility] on 07/27/23-- pt instructed by [facility] and ms to repeat Endoscopy (EGD) 3 years from 07/27/23 & repeat colonoscop y 7 years from 07/27/23 Hyperlipidemia 87225386 E78.5 Asthma 238066745 J45.90 9 (quiescent ) -- spirometry done HIV screening 243183759 Z11.4 -- tested negative for HIV on 10/04/23 COVID-19 017047643 U07.1 -- dx'd w/ covid around 09/08/22 Benign pro static hyperplasia without outflow obstruction 171840858 N40.0 (evident on CT of abd/pelvis on 08/22/22) -- check PSA Body mass index 30+ - obesity 914158940 Z68.39 -- Advise weight loss; pt lost 2 since his last visit (off Topiramate ) -- Patient's BMI today is 30.4 (idealisti c than 20-25); patient is muscular. Hepatitis C screening 41 1304157 Z11.59 -- Hepatitis C antibodies nonreactiv e on 09/02/16 Active or passive immunization 309857851 Z23 -- pt reported that he had received 2 Shingrix shots at [facility] and he will get report for ms Screening for malignant neoplasm of colon 265392435 Z12.11 -- Gastroente rologist Dr Kishore Pelletier recommende d repeating colonoscop y 10 years from 03/14/19 -- just had EGD & Colonoscop [facility] done [facility] on 07/27/23-- pt instructed by [facility] and [facility] to repeat Endoscopy (EGD) 3 years from 07/27/23 & repeat colonoscop y 7 years from 07/27/23 Screening for malignant neoplasm of prostate 545401499 Z12.5 PSA level of 1.6 (03/14/19) --> 2.6 (09/24/20) Abdominal bloating 31083 9008 R14.0 (with nausea) -- counseled on avoiding both gluten and dairy x 1 week and then resume to see any response-- awaiting endoscopy/ colonoscop y pathology report (? Celiac dz) Eczema 81746563 L30.9 [id number] Luis Carlos Merchant MD [facility], [place] [id number] [facility] [address] [address] 11/17/2023 09:23:36 11/17/2023 11:12:22 Abdominal bloating 952655368 R14.0 (with nausea) -- counseled on avoiding both gluten and dairy x 1 week and then resume to see any response-- awaiting endoscopy/ colonoscop y pathology report (? Celiac dz)-- pt has not got started seriously w/ the gluten free diet yet. Eczema 44471015 L30.9 -- respond well to Triamcinol one ointment Mesenteric lymphadenopathy 842393827 I88.0 (on both Abd/pelvis CT on 08/22/22 and 04/02/23) -- Tx'd w/ both Augmentin and Metronidaz ole-- just had EGD & Colonoscop [facility] done [facility] on 07/27/23-- pt instructed by [facility] and me to repeat Endoscopy (EGD) 3 years from 07/27/23 & repeat colonoscop y 7 years from 07/27/23 Hyperlipidemia 92957235 E78.5 Benign pro static hyperplasia without outflow obstruction 923664681 N40.0 (evident on CT of abd/pelvis on 08/22/22) -- PSA improved from 2.8 --> 2.1 (08/18/23) Asthma 758181903 J45.90 9 (quiescent ) -- spirometry done Body mass index 30+ - obesity 108824704 Z68.39 -- Advise weight loss; pt gained 1 since his last visit (off Topiramate ) -- Patient's BMI today is 30.5 (idealisti c than 20-25); patient is muscular. Hepatitis C screening 41 8351668 Z11.59 -- Hepatitis C antibodies nonreactiv e on 09/02/16 HIV screening 151232806 Z11.4 -- tested negative for HIV on 10/04/23 Active or passive immunization 959144640 Z23 -- pt reported that he had received 2 Shingrix shots at [facility] and he will get report for ms Screening for malignant neoplasm of colon 332961328 Z12.11 -- Gastroente rologist Dr Kishore Pelletier recommende d repeating colonoscop y 10 years from 03/14/19 -- just had EGD & Colonoscop [facility] done [facility] on 07/27/23-- pt instructed by [facility] and me to repeat Endoscopy (EGD) 3 years from 07/27/23 & repeat colonoscop y 7 years from 07/27/23 Screening for malignant neoplasm of prostate 721372970 Z12.5 PSA level of 1.6 (03/14/19) --> 2.6 (09/24/20) -- 2.1 (08/18/23) [id number] Luis Carlos Merchant MD [facility], [facility] [address] [facility] [address] [place] [address] 02/19/2024 09:24:03 02/19/2024 11:18:07 Abdominal bloating 615373648 R14.0 (with nausea) -- counseled on avoiding both gluten and dairy x 1 week and then resume to see any response-- awaiting endoscopy/ colonoscop y pathology report (? Celiac dz)-- pt now know that dairy really upsets his stomach Eczema 21513568 L30.9 -- respond well to Triamcinol one ointment Mesenteric lymphadenopathy 609441228 I88.0 (on both Abd/pelvis CT on 08/22/22 and 04/02/23) -- Tx'd w/ both Augmentin and Metronidaz ole-- just had EGD & Colonoscop [facility] done [facility] on 07/27/23-- pt instructed by [facility] and me to repeat Endoscopy (EGD) 3 years from 07/27/23 & repeat colonoscop y 7 years from 07/27/23 Hyperlipidemia 07111037 E78.5 Benign pro static hyperplasia without outflow obstruction 484438084 N40.0 (evident on CT of abd/pelvis on 08/22/22) -- PSA improved from 2.8 --> 2.1 (08/18/23) Asthma 495047566 J45.90 9 (quiescent ) -- spirometry done Body mass index 30+ - obesity 320003014 Z68.39 -- Advise weight loss; pt gained 1 since his last visit (off Topiramate ) -- Patient's BMI today is 30.5 (idealisti c than 20-25); patient is muscular. Hepatitis C screening 41 3829719 Z11.59 -- Hepatitis C antibodies nonreactiv e on 09/02/16 HIV screening 103289784 Z11.4 -- tested negative for HIV on 10/04/23 Active or passive immunization 653724894 Z23 -- pt reported that he had received 2 Shingrix shots [facility] and he will get report for me Screening for malignant neoplasm of colon 599651360 Z12.11 -- Gastroente rologist Dr Kishore Pelletier recommende d repeating colonoscop y 10 years from 03/14/19 -- just had EGD & Colonoscop [facility] done [facility] on 07[facility]27/23-- pt instructed by [facility] and me to repeat Endoscopy (EGD) 3 years from 07/27/23 & repeat colonoscop y 7 years from 07/27/23 Screening for malignant neoplasm of prostate 949902696 Z12.5 PSA level of 1.6 (03/14/19) --> 2.6 (09/24/20) -- 2.1 (08/18/23) Serum crea tinine above reference range 687237155 R79.89 -- informed pt to avoid any otc pain meds: like Ibuprofen (Motrin /Advil), & Naproxen (Aleve) or other pain meds by other physician/ health providers. -- informed patient to increase and maintain fluids to over 64 fluid ounces daily. Hyperglycemia 78792334 R 73.9 -- check lab on 12/17/23 Hypoglycemia 298352559 E 16.2 (nauseous, jittery & sweaty) -- sx markedly improved w/ eating Excessive sweating 90549 005 R61 -- ? hypoglycem ia [id number] Luis Carlos Merchant MD [facility] [address] [address] 06/08/2024 09:40:05 06/08/2024 11:26:56 Excessive sweating 06023432 R61 -- ? hypoglycem ia-- frequency markedly decreased Serum crea tinine above reference range 900499191 R79.89 -- informed pt to avoid any otc pain meds: like Ibuprofen (Motrin /Advil), & Naproxen (Aleve) or other pain meds by other physician/ health providers. -- informed patient to increase and maintain fluids to over 64 fluid ounces daily. Hyperglycemia 95772163 R 73.9 -- check lab on 12/17/23 Hypoglycemia 209578474 E 16.2 (nauseous, jittery & sweaty) -- sx markedly improved w/ eating Abdominal bloating 51644 9008 R14.0 (with nausea) -- counseled on avoiding both gluten and dairy x 1 week and then resume to see any response-- awaiting endoscopy/ colonoscop y pathology report (? Celiac dz)-- pt now know that dairy really upsets his stomach Eczema 73135378 L30.9 -- responds well to Triamcinol one ointment Mesenteric lymphadenopathy 255708849 I88.0 (on both Abd/pelvis CT on 08/22/22 and 04/02/23) -- Tx'd w/ both Augmentin and Metronidaz ole and lymphadeno shelbie resolved-- just had EGD & Colonoscop [facility] done [facility] on 07/27/23-- pt instructed by [facility] and me to repeat Endoscopy (EGD) 3 years from 07/27/23 & repeat colonoscop y 7 years from 07/27/23 Hyperlipidemia 86162839 E78.5 Benign pro static hyperplasia without outflow obstruction 658108310 N40.0 (evident on CT of abd/pelvis on 08/22/22) -- PSA improved from 2.8 --> 2.1 (08/18/23) Asthma 208262621 J45.90 9 (quiescent ) -- spirometry done Body mass index 30+ - obesity 107218414 Z68.31 -- Advise weight loss; pt gained 1 since his last visit (off Topiramate ) -- Patient's BMI today is 31.7 (idealisti c than 20-25); patient is muscular. Hepatitis C screening 41 3333900 Z11.59 -- Hepatitis C antibodies nonreactiv e on 09/02/16 HIV screening 160383608 Z11.4 -- tested negative for HIV on 10/04/23 Active or passive immunization 123311984 Z23 -- pt reported that he had received 2 Shingrix shots at [facility] and he will get report for me-- pt also reported he had a Flu shot at [facility] (either in Feb or Mar 2024) Screening for malignant neoplasm of colon 217536611 Z12.11 -- Gastroente rologist Dr Kishore Pelletier recommende d repeating colonoscop y 10 years from 03/14/19 -- just had EGD & Colonoscop [facility] done [facility] on 07/27/23-- pt instructed by [facility] and me to repeat Endoscopy (EGD) 3 years from 07/27/23 & repeat colonoscop y 7 years from 07/27/23 Screening for malignant neoplasm of prostate 188406043 Z12.5 PSA level of 1.6 (03/14/19) --> 2.6 (09/24/20) -- 2.1 (08/18/23) Essential hypertension 58405252 I10 -- BP controlled -- EKG done 02/19/24 [id number] Luis Carlos Merchant MD [facility] [address] [facility] [address] [place] [address] 01/20/2025 08:54:46 01/20/2025 10:08:16 Well adult 784985144 Z00.00 44116027 Essential hypertension 06516028 I10 -- BP controlled -- EKG done 02/19/24 Hyperlipidemia 84692534 E78.5 -- check lab(s) on 02/15/25 Serum crea tinine above reference range 984498528 R79.89 -- informed pt to avoid any otc pain meds: like Ibuprofen (Motrin /Advil), & Naproxen (Aleve) or other pain meds by other physician/ health providers. -- informed patient to increase and maintain fluids to over 64 fluid ounces daily. Asthma 453225707 J45.90 9 (quiescent ) -- spirometry done 06/08/24 Abdominal bloating 14684 9008 R14.0 (with nausea) -- counseled on avoiding both gluten and dairy x 1 week and then resume to see any response-- awaiting endoscopy/ colonoscop y pathology report (? Celiac dz)-- pt now know that dairy really upsets his stomach Eczema 65571151 L30.9 -- responds well to Triamcinol one ointment Mesenteric lymphadenopathy 228392350 I88.0 (on both Abd/pelvis CT on 08/22/22 and 04/02/23) -- Tx'd w/ both Augmentin and Metronidaz ole and lymphadeno shelbie resolved-- just had EGD & Colonoscop [facility] done [facility] on 07/27/23-- pt instructed by [facility] and me to repeat Endoscopy (EGD) 3 years from 07/27/23 & repeat colonoscop y 7 years from 07/27/23-- check lab(s) on 02/15/25 Benign pro static hyperplasia without outflow obstruction 540037366 N40.0 (evident on CT of abd/pelvis on 08/22/22) -- PSA improved from 2.8 --> 2.1 (08/18/23)- - check lab(s) on 02/15/25 Body mass index 30+ - obesity 452340960 Z68.31 -- Advise weight loss; pt lost 1 #since his last visit (off Topiramate ) -- Patient's BMI today is 31.5 (idealisti c than 20-25); patient is muscular. Hepatitis C screening 41 8069976 Z11.59 -- Hepatitis C antibodies nonreactiv e on 09/02/16 HIV screening 421084578 Z11.4 -- tested negative for HIV on 10/04/23 Active or passive immunization 891035266 Z23 -- pt reported that he had received 2 Shingrix shots at [facility] and he will get report for me-- pt also reported he had a Flu shot at [facility] (either in Feb or Mar 2024) Screening for malignant neoplasm of colon 362422949 Z12.11 -- Gastroente rologist Dr Kishore Pelletier recommende d repeating colonoscop y 10 years from 03/14/19 -- just had EGD & Colonoscop y done [facility] on 07/27/23-- pt instructed by [facility] and [facility] to repeat Endoscopy (EGD) 3 years from 07/27/23 & repeat colonoscop y 7 years from 07/27/23 Screening for malignant neoplasm of prostate 442693105 Z12.5 PSA level of 1.6 (03/14/19) --> 2.6 (09/24/20) -- 2.1 (08/18/23)- - check lab(s) on 02/15/25 Impaired g lucose tolerance 1528346 R73.02 23789 -- check lab(s) on 02/15/25 Intermitte nt palpitations 884093319 R00.2 54585587 -- pt turned in event monitor (01/09/25) ordered by Cardiologi st Dr Kayla Eng[facility] Concerns Section Related Observation LastModified by Organization [employer] LastModified Time None Recorded Concern Status LastModified by Organization Details LastModified Time None Recorded Advance Directives Directive N: Payers Insurance Date Sequence Insurance Name Policy Number Policy Gray Covered Member ID Gray Member ID Guarantor Name 02/08/2025 1 [facility] [id number] [facility] 01/20/2025 1 [facility] [place] Bryantgeovany Mccarthy [id number] Bryantgeovany Mccarthy 01/20/2025 1 [employer] [id number] Bryantgeovany Mccarthy [id number] Bryant Mccarthy Notes Date Note Type Note Provider Name and Address Organization Details Recorded Time 08/18/2023 text/html Pt comes in for bloating and nausea. Pt is also due for annual PE. Pt feels well and has no c/o. Pt has no new sx and no increasing sx. Patient denies any jaw or neck discomfort, left arm pain/left arm discomfort, chest discomfort/pain, diaphoresis, breathing symptoms/chest tightness, indigestion sx, n/v, any angina equivalent symptoms, etc. Luis Carlos Merchant MD [address] [place] [address] [address], [place], [address], [facility] 08/18/2023 09:53:36 11/17/2023 text/html Pt comes in for f/u of abdominal bloating, eczema (gone), HLD, and BPH. Pt feels well and has no c/o. Pt has no new sx and no increasing sx. Patient denies any jaw or neck discomfort, left arm pain/left arm discomfort, chest discomfort/pain, diaphoresis, breathing symptoms/chest tightness, indigestion sx, n/v, any angina equivalent symptoms, etc. MD Keri Meeks [facility] [address], [place], [address], [facility] 11/17/2023 11:01:58 02/19/2024 text/html Pt comes in for excessive sweating, ^Cr, Hyperglycemia, and abd bloating. Pt feels well and has no c/o. Pt has no new sx and no increasing sx. Patient denies any jaw or neck discomfort, left arm pain/left arm discomfort, chest discomfort/pain, diaphoresis, breathing symptoms/chest tightness, indigestion sx, n/v, any angina equivalent symptoms, etc. MD Keri Meeks [facility] [address], [place], [address], [facility] 02/19/2024 11:06:01 06/08/2024 text/html [...] equivalent symptoms, etc. Luis Carlos Merchant MD [address] [facility] [address], [place], [address], [facility] 06/08/2024 11:24:01 01/20/2025 text/html Pt comes in for f/u of HTN, HLD, pre-DM, palpitations (none in the last 1 week), Asthma (no flares in the last 1 year) and weight. Pt is also due for annual PE. Pt feels well and has no c/o. Pt has no new sx and no increasing sx. Patient denies any jaw or neck discomfort, left arm pain/left arm discomfort, chest discomfort/pain, diaphoresis, breathing symptoms/chest tightness, indigestion sx, n/v, any angina equivalent symptoms, etc. Luis Carlos Merchant MD [facility] [address], [place], [address], [facility] 01/20/2025 10:09:29
--- OUTSIDE RECORDS SUMMARY | 2025-06-02 18:13 | XMS_ITS | Clinical Summary ---
Author Organization [facility] Address [address] [place] [address] Care Team Providers Care Marriage And Family Social Worker Name Role Phone Luis Carlos Nix MD Primary Care Provider [phone] Allergies No known active allergies Medications albuterol sulfate HFA 108 (90 Base) MCG/ACT inhaler albuterol sulfate HFA 90 mcg/actuation aerosol inhaler Active omeprazole 40 MG capsule omeprazole 40 mg capsule,delaye d release Active cetirizine 10 MG tablet cetirizine 10 mg tablet TAKE 1 TABLET BY MOUTH EVERY DAY Active vitamin D3, cholecalciferol, 5000 UNITS capsule Take 1 capsule by mouth daily. Active ondansetron (ZOFRAN-ODT) 4 MG disintegrating tablet DISSOLVE 1 TABLET ON THE TONGUE EVERY 6 HOURS NEEDED FOR NAUSEA OR VOMITING Active naproxen (NAPROSYN) 375 MG tablet Take 1 tablet (375 mg total) by mouth 2 (two) times daily. 3 Active cyclobenzaprine (FLEXERIL) 10 MG tablet Take 1 tablet (10 mg total) by mouth 3 (three) times daily as needed for Muscle Spasms. 3 Active SUMAtriptan (IMITREX) 100 MG tablet Take 1 tablet (100 mg total) by mouth 2 (two) times daily as needed. As needed for migraines 2 Active triamcinolone (KENALOG) 0.1 % ointment 4 Active amitriptyline (ELAVIL) 50 MG tablet Take 1 tablet (50 mg total) by mouth. 5 Active Cyanocobalamin 100 MCG Tab 5 Active diclofenac EC (VOLTAREN) 75 MG tablet Take 1 tablet (75 mg total) by mouth. Active rosuvastatin (CRESTOR) 10 MG tablet Take 1 tablet (10 mg total) by mouth daily. Active tadalafil (CIALIS) 20 MG tablet Active lidocaine (LIDODERM) 5 % APPLY 1 PATCH TO SKIN SITE ONCE A DAY NEEDED FOR LOCAL ANESTHESIA APPLY PATCH AND PRESS FIRMLY FOR 10-15 SECONDS. KEEP ON FOR 12 HOURS THEN REMOVE PATCH FOR 12 HOURS. Active ketoconazole (NIZORAL) 2 % cream APPLY SPARINGLY TO AFFECTED AREA(S) TWICE A DAY FOR FUNGAL INFECTION FOR INFECTION (EXTERNAL USE ONLY) 5 Active nebivolol (BYSTOLIC) 10 MG tablet TAKE 1 TABLET(10 MG) BY MOUTH DAILY 90 tablet Active losartan (COZAAR) 50 MG tablet TAKE 1 TABLET(50 MG) BY MOUTH DAILY 90 tablet 3 Active Active Problems Problem Noted Date Diagnosed Date Steatosis of liver 11/28/2024 Obstructive sleep apnea 11/28/2024 Stage 2 chronic kidney disease 11/28/2024 Hypertension 10/29/2023 Overview (11/28/2024): BP somewhat above goal of 135/85. Cont HCTZ. Will rtc earlier is elevated at home over next month. BP somewhat above goal of 135/85. Cont HCTZ. Will rtc earlier is elevated at home over next month. Aortic aneurysm 10/29/2023 Lymphedema of left upper extremity 04/29/2023 Hyperglycemia 08/23/2022 Flank pain 08/22/2022 Benign essential hypertension 10/24/2021 Chest pain 10/24/2021 Hyperlipidemia 10/24/2021 Lymphedema 10/24/2021 Abnormal EKG Immunizations Immunization Administration Dates Next Due Influenza (Generic) 04/02/2015, 4,07/25/2013,2009 Influenza Adult (Generic) 03/24/2023,07/2019,04/18/2019,2015 MODERNA COVID-19 (12+) MRNA, LNP-S, PF, 100 MCG/ 0.5 ML DOSE 10/15/2020,09/17/2020 Shingrix 08/28/2020,04/30/2020 Tdap (Generic) 09/23/2023,07/25/2013 Family History Relation Status Comments Brother 1 Alive Brother 2 Alive Father (Age 77) Maternal Grandfather Maternal Grandmother Mother (Age 63) Paternal Grandfather Paternal Grandmother Sister 1 Alive Sister 2 Alive Social History Tobacco Use Types Packs/Day Years Used Date Smoking Tobacco: Never Smokeless Tobacco: Never Tobacco Cessation:Counseling Given: Not Answered Alcohol Use Standard Drinks/Week Comments Not Currently 0 (1 standard drink = 0.6 oz pur e alcohol) Sex and Gender Information Value Date Recorded Sex Assigned at Male 12/12/2024 6:47 AM CDT Legal Sex Male 9:43 AM CDT Gender Identity Not on file Sexual Orientation Not on file 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 Not on file Not on file Not on file Last Filed Vital Signs Vital Sign Reading Time Taken Comments Blood Pressure 120/72 11/28/2024 9:29 AM CDT Pulse 68 11/28/2024 9:29 AM CDT Temperature - - Respiratory Rate - - Oxygen Saturation 98% 11/28/2024 9:29 AM CDT Inhaled Oxygen Concentration - - Weight 99.8 kg (220 lb) 11/28/2024 9:29 AM CDT Height 180.3 cm (5' 11) 11/28/2024 9:29 AM CDT Body Mass Index 30.68 11/28/2024 9:29 AM CDT Plan of Treatment Upcoming Encounters Date Type Department Care Team (Late st Contact Info) Description 12/04/2025 9:30 AM CDT [facility] [address] [place], [place] [phone] Katie Neal MD [facility] [address] [place], [place] [phone] Health Maintenance Due Date Last Done Comments Colorectal Cancer Screening Colonoscopy (10 Years) 1960 Hepatitis C 1978 Hepatitis A Vaccines (1 of 2 - Risk 2-dose series) 1979 Pneumococcal Vaccine: 50+ Years (1 of 1 - PCV) 2010 RSV Immunization or 60+ Years (1 - Risk 60-74 years 1-dose series) 2020 COVID-19 Vaccine (4 - 2024- season) 2025 09/23/2023, 10/15/2020, 09/17/2020 Influenza Adult (#1) 2025 03/24/2023, 04/30/2020, 04/18/2019, Additional history exists DTaP, Tdap and Td Vaccines (3 - Td or Tdap) 09/22/2033 09/23/2023, 07/25/2013 Zoster Vaccines Completed 08/28/2020, 04/30/2020 Meningococcal B Vaccine Aged Out No l onger eligible based on patient's age to complete this topic Meningococcal Vaccine Aged Out No christian faraz eligible based on patient's age to complete this topic RSV Immunizations Under 20 Months Aged Out No longer eligible based on patient's age to complete this [place] [address] [facility] Care Teams Marriage And Family Social Worker Relationship Specialty Start Date End Date Luis Carlos Nix MD [address] [facility] [address] [place] [address] PCP - General INTERNAL MEDICINE 09/30/21
[2025-06-02 19:51] VITALS: BP 167/76; PULSE 72; RESP 18; O2SAT 96
== END 2025-06-02 19:45 | disposition home or self-care (01) ==
PROVIDERS: Emergency Provider Registered Nurse; PCP Internal Medicine
DX: S39.012A Strain of muscle, fascia and tendon of lower back, initial encounter (principal); R59.9 Enlarged lymph nodes, unspecified; M54.16 Radiculopathy, lumbar region; I10 Essential (primary) hypertension; E78.5 Hyperlipidemia, unspecified; R73.03 Prediabetes; Z79.899 Other long term (current) drug therapy; X58.XXXA Exposure to other specified factors, initial encounter
CPT/HCPCS: 72131; 74176; 81003; 96372; 99284; J1885; J7512